=== PATIENT | female | born 1990 | race Caucasian/White ===

== ENCOUNTER 2020-05-23 10:41 | Outpatient (REF) | payer OTHER, MEDICAID, SELFPAY ==
[2020-05-23 11:00] LABS: COVID-19 Test Negative (Negative)
== END 2020-05-23 10:42 | disposition home or self-care (01) ==
LOC: HO.LAB 10:41
PROVIDERS: Visit Provider Internal Medicine
DX: Z20.828 Contact with and (suspected) exposure to other viral communicable diseases (principal)
CPT/HCPCS: 87635

== ENCOUNTER 2021-06-14 12:29 | Outpatient (REF) | payer OTHER, MEDICAID, SELFPAY ==
[2021-06-14 13:55] LABS: Estimated Average Glucose 94 mg/dL; Hemoglobin A1c % 4.9 %
[2021-06-14 14:14] LABS: Vitamin D 25-OH Total 26.8 ng/mL (>30)
[2021-06-14 14:32] LABS: Syphilis Screen Reactive (Nonreactive)
[2021-06-14 16:59] LABS: CT PCR NOT DETECTED (Not Detect.); NG PCR NOT DETECTED (Not Detect.)
[2021-06-17 08:23] LABS: HBsAGNum1 0.21 S/CO (0.00-0.99); HIV AB/AG Nonreactive (Nonreactive); HIV Num 1 0.04 S/CO (0.00-0.99); Hepatitis B Surface Antigen Negative (Negative)
[2021-06-17 08:30] LABS: ~HepC Num1 0.09 S/CO (0.00-0.79); ~Hepatitis C Antibody Nonreactive (Nonreactive)
[2021-06-21 14:57] LABS: RPR Quantitative Non-Reactive (Nonreactive); T.Pallidum Particle Agg Test Non-Reactive (Nonreactive)
== END 2021-06-14 12:30 | disposition home or self-care (01) ==
LOC: HO.LAB 12:29
PROVIDERS: PCP Family Medicine; Visit Provider Family Medicine
DX: Z01.84 Encounter for antibody response examination (principal); Z11.3 Encounter for screening for infections with a predominantly sexual mode of transmission; Z11.4 Encounter for screening for human immunodeficiency virus [HIV]; E55.9 Vitamin D deficiency, unspecified; Z86.19 Personal history of other infectious and parasitic diseases
CPT/HCPCS: 36415; 82306; 83036; 86592; 86780; 86803; 87340; 87389; 87491; 87591

== ENCOUNTER 2022-04-02 13:31 | Outpatient (REF) | payer OTHER, MEDICAID, SELFPAY ==
--- NOTE | ~2022-04-02 | XR_ITS ---
EXAMINATION: LEFT FOOT AND ANKLE CLINICAL INFORMATION: Pain COMPARISON: None TECHNIQUE: 3 views of the left foot and 3 views of the left ankle. FINDINGS: There is no evidence of acute fracture or dislocation of the left foot. No significant soft tissue swelling is seen. Joint spaces are maintained. No destructive bony lesions. There is no evidence of acute fracture or dislocation of the left ankle. Joint spaces maintained. Ankle mortise intact. No effusion identified. XR/XR foot LT min 3V IMPRESSION: No significant bony abnormality of the left foot or ankle.
--- NOTE | ~2022-04-02 | XR_ITS ---
EXAMINATION: LEFT FOOT AND ANKLE CLINICAL INFORMATION: Pain COMPARISON: None TECHNIQUE: 3 views of the left foot and 3 views of the left ankle. FINDINGS: There is no evidence of acute fracture or dislocation of the left foot. No significant soft tissue swelling is seen. Joint spaces are maintained. No destructive bony lesions. There is no evidence of acute fracture or dislocation of the left ankle. Joint spaces maintained. Ankle mortise intact. No effusion identified. XR/XR ankle LT min 3V IMPRESSION: No significant bony abnormality of the left foot or ankle.
== END 2022-04-02 13:32 | disposition home or self-care (01) ==
LOC: HO.XRAY 13:31
PROVIDERS: Absent Provider Family Medicine; PCP Family Medicine; Visit Provider Internal Medicine
DX: M25.572 Pain in left ankle and joints of left foot (principal); M79.672 Pain in left foot
CPT/HCPCS: 73610; 73630

== ENCOUNTER 2022-04-28 16:35 | Outpatient (REF) | payer OTHER, MEDICAID, SELFPAY ==
--- NOTE | ~2022-04-28 | XR_ITS ---
EXAMINATION: XR CHEST CLINICAL INFORMATION: Obesity COMPARISON: None TECHNIQUE: 2 views of the chest were obtained. FINDINGS: No significant abnormality is noted involving the heart, lungs, mediastinum, bony thorax or soft tissues. XR/XR chest 2V IMPRESSION: Unremarkable examination.
== END 2022-04-28 16:36 | disposition home or self-care (01) ==
LOC: HO.XRAY 16:35
PROVIDERS: PCP Family Medicine; Visit Provider Surgery
DX: E66.01 Morbid (severe) obesity due to excess calories (principal); K21.9 Gastro-esophageal reflux disease without esophagitis
CPT/HCPCS: 71046

== ENCOUNTER → 2022-05-05 12:06 | Outpatient (REF) | payer OTHER, MEDICAID, SELFPAY ==
--- NOTE | 2022-05-05 12:11 | ECG_ITS ---
Test Reason : e66.01 Blood Pressure : / mmHG Vent. Rate : 058 BPM Atrial Rate : 058 BPM P-R Int : 128 ms QRS Dur : 086 ms QT Int : 402 ms P-R-T Axes : -04 016 -04 degrees QTc Int : 394 ms Sinus bradycardia with sinus arrhythmia Nonspecific T wave abnormality Abnormal ECG No previous ECGs available Referred By: Eric Smith Electronically Signed By:IRMA JONHSON
[2022-05-08 13:02] LABS: H Pylori Breath Test Negative (Negative)
== END ==
LOC: HO.CARD 12:06
PROVIDERS: PCP Family Medicine; Visit Provider Surgery
DX: E66.01 Morbid (severe) obesity due to excess calories (principal); K21.9 Gastro-esophageal reflux disease without esophagitis
CPT/HCPCS: 36415; 83013; 93005

== ENCOUNTER 2022-05-06 10:48 | Outpatient (REF) | payer OTHER, MEDICAID, SELFPAY ==
[2022-05-06 14:00] LABS: MANUAL DIFF FLAG NO
[2022-05-06 14:09] LABS: Basophils Percent Auto 0.5 % (0-2); Eosinophils Absolute Auto 0.1 X10*3/uL (0.0-0.4); Hematocrit 38.4 % (37.0-47.0); Hemoglobin 12.5 g/dl (12.0-16.0); Imm Gran Abs Auto 0.01 X10*3/uL (0.00-0.03); Imm Gran Pct Auto 0.2 % (0.0-0.4); Lymphocytes Percent Auto 31.5 % (20-40); Mean Corpuscular HGB Conc 32.6 g/dl (31.0-35.0); Mean Corpuscular Hemoglobin 29.1 pg (27.0-33.0); Mean Corpuscular Volume 89.3 fL (80.0-98.0); Mean Platelet Volume 10.7 fL (9.4-12.3); Monocytes Absolute Auto 0.4 X10*3/uL (0.1-1.2); Monocytes Percent Auto 5.5 % (2-11); Neutrophils Absolute Auto 3.9 x10*3/uL (2.0-8.3); Neutrophils Percent Auto 60.3 % (45-73); Platelet Count 307 X10*3/uL (160-400); Red Cell Distribution Width 13.3 % (11.0-16.0); White Blood Count 6.4 X10*3/uL (4.8-10.8)
[2022-05-06 14:19] LABS: Estimated Average Glucose 97 mg/dL
[2022-05-06 14:30] LABS: Alanine Aminotransferase 28 U/L (0-31); Albumin Level 4.5 g/dL (3.5-5.0); Alkaline Phosphatase 51 U/L (39-117); Anion Gap 16 (12-20); Aspartate Amino Transferase 31 U/L (5-31); Bilirubin Total 0.5 mg/dL (0.0-1.0); Blood Urea Nitrogen 10 mg/dL (9-16); C Reactive Protein 0.26 mg/dL (< or = 0.50); Calcium 9.5 mg/dL (8.4-10.2); Carbon Dioxide 26 mmol/L (22-29); Chloride 102 mmol/L (96-108); Cholesterol 169 mg/dL; Estimated Glomerular Filt Rate > 60; Glucose Random 79 mg/dL (60-115); HDL Cholesterol 51 mg/dL; Iron 76 mcg/dL (30-160); LDL Cholesterol Calculated 99 mg/dl; Percent Iron Saturation 17 % (15-50); Potassium 4.2 mmol/L (3.3-5.1); Sodium 140 mmol/L (135-145); Total Iron Binding Capacity 446 mcg/dL (228-428); Total Protein 7.5 g/dL (6.5-8.0); Triglycerides 99 mg/dL; Unsaturated Iron Binding 370 ug/dL
[2022-05-06 14:42] LABS: Ferritin 16 ng/mL (10-122); Insulin 11 uU/mL (2-29); TSH reflex Free T4 0.74 uIU/mL (0.32-4.0); Vitamin D 25-OH Total 31.1 ng/mL (>30)
[2022-05-06 14:55] LABS: Folate 19.6 ng/mL (> or = 4.0); Vitamin B12 790 pg/mL (200-900)
[2022-05-07 12:37] LABS: Calcium (PTHI) 9.8 mg/dL (8.6-10.2); PTHI 60 pg/mL (16-77)
[2022-05-09 19:52] LABS: Zinc 75 mcg/dL (60-130)
[2022-05-10 08:08] LABS: Vitamin B1 7 nmol/L (8-30)
[2022-05-10 20:21] LABS: Vitamin A 43 mcg/dL (38-98)
== END 2022-05-06 10:49 | disposition home or self-care (01) ==
LOC: HO.HMGCLDS 10:48
PROVIDERS: PCP Family Medicine; Visit Provider Surgery
DX: E66.01 Morbid (severe) obesity due to excess calories (principal); K21.9 Gastro-esophageal reflux disease without esophagitis
CPT/HCPCS: 36415; 80053; 80061; 82306; 82607; 82728; 82746; 83036; 83525; 83540; 83970; 84425; 84443; 84590; 84630; 85025; 86140

== ENCOUNTER 2022-07-01 09:19 | Outpatient (REF) | payer OTHER, MEDICAID, SELFPAY ==
--- NOTE | ~2022-07-01 | US_ITS ---
EXAMINATION: US COMPLETE ABDOMEN WITH LIVER ELASTOGRAPHY CLINICAL INFORMATION: Obesity. COMPARISON: None. TECHNIQUE: Real-time imaging of the abdominal viscera. Noninvasive ultrasound liver fibrosis assessment is performed using Elena ElastPQ point quantification shear wave elastography (2D-SWE) with a C5-2 MHz transducer. Multiple elastography samples are obtained. FINDINGS: PANCREAS: Normal. The visualized pancreatic head and body are normal in appearance. The remainder of the pancreas is obscured from visualization by the overlying bowel gas. ABDOMINAL AORTA: The proximal, middle, and distal aortic segments are normal in caliber. INFERIOR VENA CAVA: Visualized portions are normal. LIVER: The liver demonstrates normal size, contour and increased echogenicity. No focal lesion or intrahepatic biliary duct dilatation. The right lobe measures 7.2 cm in length. The left lobe measures 9.0 cm in length. Portal flow is hepatopedal. Shear wave liver elastography median stiffness is 1.60 m/s (reference: normal median stiffness is 1.3 m/s or less). IQR/median stiffness to assess sampling precision is 0.25 (reference: good quality data set is IQR/median stiffness of 0.15 or less). GALLBLADDER: There are multiple echogenic gallstones without wall thickness. Wall thickness is 0.2 cm. No pericholecystic fluid collection or tenderness in the right upper quadrant. COMMON BILE DUCT: Normal in caliber measuring 0.3 cm in diameter. RIGHT KIDNEY: There is an extrarenal right kidney pelvis versus mild proximal hydroureter. No renal calculi or focal parenchymal lesions. The kidney measures 11.3 cm in maximum dimension. LEFT KIDNEY: Normal. No hydronephrosis. No renal calculi or focal parenchymal lesions. The kidney measures 10.0 cm in maximum dimension. SPLEEN: Normal. The spleen measures 11.3 cm in maximum dimension. FREE FLUID: None. US/US abdomen comp w elastography IMPRESSION: 1. Cholelithiasis. Mild hepatic steatosis. 2. Liver elastography: Median liver stiffness 1.60 m/s corresponds to cACLD (ruled out). REFERENCE: Society of Radiologists in Ultrasound Liver Stiffness Thresholds (2019): LIVER STIFFNESS THRESHOLDS: *Liver Stiffness equal or less than 1.3 m/s: High probability of being normal. *Liver Stiffness less than 1.7 m/s: In the absence of other known clinical signs, rules out compensated advanced chronic liver disease. *Liver Stiffness 1.7-2.1 m/s: Suggestive of compensated advanced chronic liver disease but need further test for confirmation. *Liver Stiffness over 2.1 m/s: Rules in compensated advanced chronic liver disease. *Liver Stiffness over 2.4 m/s: Suggestive of clinically significant portal hypertension. QUALITY OF DATA SET: *IQR/Median value equal or less than 0.15 implies a quality data set. *IQR/Median value over 0.15 implies a poor quality data set. SIGNIFICANT CHANGE FROM PRIOR EXAM: Significant change if liver stiffness measurement is 10% or greater from prior exam. OTHER CONSIDERATIONS: The stage of liver fibrosis may be overestimated in the setting of acute hepatitis, liver inflammation, elevated liver function tests, hepatic vascular congestion, obstructive cholestasis, non-fasting state, and infiltrative diseases such as amyloidosis and lymphoma. In some patients with NAFLD, the liver stiffness thresholds for compensated advanced chronic liver disease may be lower. In causes other than viral hepatitis and NAFLD, liver stiffness thresholds are not well established.
--- NOTE | ~2022-07-01 | FL_ITS ---
EXAMINATION: XR FLUOROSCOPY UPPER GI WITH AIR CLINICAL INFORMATION: Morbid/severe obesity due to excess calories. COMPARISON: None TECHNIQUE: Routine upper GI air-contrast study was performed in upright and lying position. FINDINGS: Following oral administration of thick barium and effervescent granules in upright view there is normal propagation bolus from the oral cavity through the pharynx, esophagus into stomach without any evidence of obstruction, narrowing or stricture. No extrinsic impression seen. On placing patient supine and prone lying the course, caliber and peristalsis of stomach and duodenum is normal. The mucosal pattern of esophagus, stomach and the duodenum is normal. There is mild delay in emptying of the stomach during the exam. No gastroesophageal reflux or hernia seen. FLUOROSCOPY TIME: 1.5 minutes DOSE AREA PRODUCT: 30.088 uGy-m2 (microgray-meter squared) FL/FL upper GI w air IMPRESSION: Unremarkable upper GI examination.
== END 2022-07-01 09:20 | disposition home or self-care (01) ==
LOC: HO.US 09:19
PROVIDERS: Visit Provider Surgery
DX: E66.01 Morbid (severe) obesity due to excess calories (principal); K21.9 Gastro-esophageal reflux disease without esophagitis
CPT/HCPCS: 74246; 76705; 76981

== ENCOUNTER → 2022-07-17 14:59 | Outpatient (BNVA) | payer OTHER, MEDICAID, SELFPAY | PROVIDERS: PCP Family Medicine; Referring Provider Surgery; Visit Provider Dietitian, Registered | DX: E66.01 Morbid (severe) obesity due to excess calories (principal) | CPT/HCPCS: 97802 ==

== ENCOUNTER 2022-07-22 | Outpatient (REF) | payer OTHER, MEDICAID, SELFPAY | END 2022-07-22 00:01 | disposition home or self-care (01) | LOC: CF | PROVIDERS: PCP Family Medicine; Visit Provider Counselor Mental Health | DX: Z01.818 Encounter for other preprocedural examination (principal); E66.01 Morbid (severe) obesity due to excess calories; F50.81 Binge eating disorder | CPT/HCPCS: 90791 ==

== ENCOUNTER → 2022-07-29 10:28 | Outpatient (REF) | payer OTHER, MEDICAID, SELFPAY ==
--- NOTE | 2022-07-29 10:30 | CA_ITS ---
Acquisition Time: 2022-07-29 10:49:18 Total Exercise Time: 00:07:19 Test Indications: ABN EKG Medications: SEE CHART Protocol: STONE Max HR: 164 BPM 87% of Pred: 188 BPM Max BP: 168/080 mmHG Max Work Load: 9.0 METS Exercise stress test with exercise 7 min 19 sec of Stone protocol, achieving 87% MPHR, 9 METs, without anginal symptoms, without arrythmia, with normotensive response to exercise, without EKG changes meeting criteria for ischemia. Test reviewed with Dr Hess. Referred By: Eric Smith Overread By: NAHUM NUÑEZ
== END ==
LOC: HO.CARD 10:28
PROVIDERS: PCP Family Medicine; Visit Provider Surgery
DX: Z01.818 Encounter for other preprocedural examination (principal); R06.02 Shortness of breath; R94.31 Abnormal electrocardiogram [ECG] [EKG]
CPT/HCPCS: 93017

== ENCOUNTER → 2022-08-06 08:50 | Outpatient (BNVA) | payer OTHER, MEDICAID, SELFPAY | PROVIDERS: PCP Family Medicine; Visit Provider Surgery | DX: Z13.89 Encounter for screening for other disorder (principal) ==

== ENCOUNTER → 2022-08-21 14:47 | Outpatient (BNVA) | payer OTHER, MEDICAID, SELFPAY | PROVIDERS: PCP Family Medicine; Visit Provider Surgery | DX: Z13.89 Encounter for screening for other disorder (principal) ==

== ENCOUNTER 2022-08-26 10:10 | Outpatient (REF) | payer OTHER, MEDICAID, SELFPAY ==
[2022-08-26 11:48] LABS: MANUAL DIFF FLAG NO
[2022-08-26 12:01] LABS: Basophils Percent Auto 0.5 % (0-2); Eosinophils Absolute Auto 0.1 X10*3/uL (0.0-0.4); Eosinophils Percent Auto 1.2 % (0-4); Hematocrit 41.2 % (37.0-47.0); Hemoglobin 13.5 g/dl (12.0-16.0); Imm Gran Abs Auto 0.02 X10*3/uL (0.00-0.03); Imm Gran Pct Auto 0.3 % (0.0-0.4); Lymphocytes Absolute Auto 1.9 X10*3/uL (1.2-4.9); Lymphocytes Percent Auto 24.9 % (20-40); Mean Corpuscular HGB Conc 32.8 g/dl (31.0-35.0); Mean Corpuscular Hemoglobin 29.5 pg (27.0-33.0); Mean Platelet Volume 10.6 fL (9.4-12.3); Monocytes Absolute Auto 0.5 X10*3/uL (0.1-1.2); Monocytes Percent Auto 6.2 % (2-11); Neutrophils Absolute Auto 5.1 x10*3/uL (2.0-8.3); Neutrophils Percent Auto 66.9 % (45-73); Platelet Count 267 X10*3/uL (160-400); Red Blood Count 4.58 X10*6/uL (4.20-5.50); Red Cell Distribution Width 13.2 % (11.0-16.0); White Blood Count 7.6 X10*3/uL (4.8-10.8)
[2022-08-26 12:04] LABS: Prothrombin Time 11.8 SEC (10.0-13.1)
[2022-08-26 12:06] LABS: Partial Thromboplastin Time 29.7 SEC (26.0-36.4)
[2022-08-26 12:17] LABS: Estimated Average Glucose 91 mg/dL; Hemoglobin A1c % 4.8 %
[2022-08-26 13:14] LABS: Alanine Aminotransferase 31 U/L (0-31); Albumin Level 4.3 g/dL (3.5-5.0); Alkaline Phosphatase 54 U/L (39-117); Anion Gap 13 (12-20); Aspartate Amino Transferase 29 U/L (5-31); Bilirubin Total 0.6 mg/dL (0.0-1.0); Blood Urea Nitrogen 15 mg/dL (9-16); C Reactive Protein 0.57 mg/dL (< or = 0.50); Calcium 9.6 mg/dL (8.4-10.2); Carbon Dioxide 28 mmol/L (22-29); Chloride 104 mmol/L (96-108); Cholesterol 182 mg/dL; Estimated Glomerular Filt Rate > 60; Glucose Random 77 mg/dL (60-115); HDL Cholesterol 50 mg/dL; LDL Cholesterol Calculated 117 mg/dl; Potassium 4.1 mmol/L (3.3-5.1); Sodium 139 mmol/L (135-145); TSH reflex Free T4 0.71 uIU/mL (0.32-4.0); Total Protein 7.5 g/dL (6.5-8.0); Triglycerides 79 mg/dL
[2022-08-26 13:39] LABS: Insulin 6 uU/mL (2-29)
== END 2022-08-26 10:11 | disposition home or self-care (01) ==
LOC: HO.LAB 10:10
PROVIDERS: PCP Family Medicine; Visit Provider Surgery
DX: E66.01 Morbid (severe) obesity due to excess calories (principal)
CPT/HCPCS: 36415; 80053; 80061; 83036; 83525; 84443; 85025; 85610; 85730; 86140

== ENCOUNTER 2022-09-04 06:18 | Inpatient (IN) | payer OTHER, MEDICAID, SELFPAY ==
[2022-08-25 12:09] VITALS: BMI 38.4
--- NOTE | 2022-08-30 00:10 | MHC.SHP ---
Pre-Procedural Eval Section A Date of Service: 08/30/22 The patient is an INPATIENT: Yes The History & Physical has been completed within 30 days and I have reviewed it.: Yes Section B Chief Complaint: obesity Relevant Family History (Specify if Yes): No Relevant Social History: None Present Medications: None Medical History: No relevant PMH History of Previous Operations: No relevant previous surgery Allergies: Allergies Allergy/AdvReac Type Severity Reaction Status Date / Time No Known Allergies Allergy Verified 08/06/22 13:09 Review of Systems Sugical H&P ROS: Negative: Constitution, Cardiovascular, Respiratory, Neurological, Psychiatric, Hem-Onc, Allergic/Immunologic, Gastrointestinal, Genitourinary, Musculoskeletal, Integumentary, Endocrine and Eyes/Ears/Nose/Throat Exam Surgical H&P Exam: Normal: HEENT, Normal: Heart, Normal: Lungs, Normal: Extremities, Normal: Abdomen, Normal: Skin and Normal: Neurological Plan Diagnosis/Plan: Unchanged I have reviewed the history and physical and performed a pertinent physical examination on my patient. No changes have occurred unless specified. Time Spent With Patient Time: Total time managing care of this patient today ____ minutes.
[2022-09-03 12:38] LABS: COVID-19 Test Negative (Negative); IDNOW Serial# 16C4AD1C
[2022-09-04] VITALS (15 sets, daily range): BP systolic 115–139; BP diastolic 68–87; PULSE 57–90; RESP 16–22; TEMP 36.1–36.8; O2SAT 96–100
[2022-09-04] MEDS: Lactated Ringers 1,000 ML 999 ML IV (06:27)
--- NOTE | 2022-09-04 07:27 | P.CONAN_ITS ---
HPI - Anesthesia Eval Consult details Narrative: 32 yo female patient for EGD, Sleeve gastrectomy, possible diaphragmatic hernia relair, possible ventral hernia repair, possible open PMFSH Active Problems Active Problems: All Active Problems (Updated 07/22/22 @ 09:39 by Luz Mata) Binge-eating disorder, mild (Acute) Abnormal EKG (Acute) Vitamin B1 deficiency (Acute) Back pain (Acute) Asthma (Acute) GERD (gastroesophageal reflux disease) (Acute) Morbid obesity (Acute) Denies BHUMIKA Past Medical History Medical History Asthma GERD (gastroesophageal reflux disease) Morbid obesity Family History Family history of problems with anesthesia: No Surgical History Surgical History (Updated 09/04/22 @ 08:42 by Kalyn Castro MD) History of epidural anesthesia History of tubal ligation History of Problems with Anesthesia: No Social History Social History Are you a primary child care education coordinator to a significant other at home: No Do you presently have visiting nurse or other home services: No Patient Tobacco Use Status: Never used Tobacco Second Hand Smoke Exposure: No Use of substances other than those prescribed or required for medical reasons: No Have you been hit, kicked, punched, or otherwise hurt by someone within the past year? If so, by whom?: No Are you DNR?: No Advance Directives: No Advance Directives Information Provided: Yes (Mailed w/ pre-op instructions) Recently lost weight without trying: No How much weight loss: 24-33 pounds Eating poorly because of decreased appetite: No Nutrition screen score: 3 Nutrition Risks: No Nutritional Risk Patient : No FDLMP: 08/25/22 Meds Allergies Allergy/AdvReac Type Severity Reaction Status Date / Time No Known Allergies Allergy Verified 09/04/22 06:23 Active Medications: Current Medications Lactated Ringer's (Lr) 1,000 mls @ 999 mls/hr IV .Q1H1M CLAUDIO Stop: 09/04/22 08:30 Last Admin: 09/04/22 06:27 Dose: 999 mls/hr Home Medications Medication Instructions Recorded Confirmed Last Taken Type albuterol sulfate 90 mcg/actuation 2 puff inhalation Q4-6H PRN 03/06/22 09/04/22 Unknown History aerosol inhaler Shortness Of Breath Or Wheezing fluticasone propionate 50 1 inh inhalation Q12H 03/06/22 09/04/22 Unknown History mcg/actuation blister powder for inhalation (Flovent Diskus) Exam Exam Date and Time: September 04, 2022 0727 Height,Weight and Vital Signs: Height 5 ft 3 in Weight 98.43 kg Last Vital Signs Temp 97.4 F 09/04/22 06:21 Pulse 90 09/04/22 06:21 Resp 18 09/04/22 06:21 BP 136/87 09/04/22 06:21 Pulse Ox 97 09/04/22 06:21 O2 Del Method 09/04/22 06:21 Pertinent Lab Results Pertinent Lab Results: Laboratory Tests 08/26/22 09/03/22 11:45 12:12 COVID-19 (AKIL) Negative COVID-19 Clin Com See Note Blood Type O Positive Antibody Screen NEGATIVE Airway Mallampati Class: II TM Dist: >3cm Neck ROM: Full Loose/Missing/Broken Teeth: No Heart: RRR Lungs: CTAB Assessment and Plan Assessment Anesthesia Assessment: Anesthesia Plan Discussed and Chart Reviewed Final Anesthetic Review Family History of Problems with Anesthesia: No History of Problems with Anesthesia: No NPO: Yes ASA Class: III Final Preanesthetic Review: No Changes in Pt Med Stat, Meds/Allgs Chart Reviewed, Consent Obtained/Reviewed and Anes Risks/Benef Reviewed Patient Risk: Intermediate Procedure Risk: Intermediate Assessment/Block/Sedation in SS: Assess/Block/Sedation-SS Anesthetic Plan Anesthetic Plan: GA Disposition: Standard PACU and Inp. Admit - Standard Bed
--- NOTE | 2022-09-04 07:33 | PM.OP ---
Brief Operative Note Date of Service: 09/04/22 Pre-op diagnosis: Severe obesity with comorbidities (see below) Post-op diagnosis: same Procedure: INITIAL PATIENT BMI ON PRESENTATION AT OUR OFFICE: 45.1 kg/m2 LAST BMI BEFORE SURGERY: 39.1 kg/m2 COMORBIDITIES: back pain, asthma, liver steatosis, liver fibrosis ?The patient presented to the Weight Management Program with significant obesity that was negatively impacting the patient's comorbidities as listed above.? The program is a phased program with a special focus on preoperative medical weight management to promote substantial weight loss and prepare the patients for the second phase of the program: bariatric surgery. The patient participated in an intensive weekly lifestyle ?intervention and exercise program during which the patient ?has lost between the initial office visit and the last preoperative visit 37lbs, or 14.52% of initial actual body weight. It was deemed appropriate for the patient to now have bariatric surgery. In light of the current Covid-19 pandemic and the well documented strong association of obesity and increased risk of worse outcomes if infected with Covid-19 (REFERENCES:https://pubmed.ncbi.nlm.nih.gov/12707316/,?https://pubmed.ncbi.nlm.nih.gov/71819821/), any delay in undergoing bariatric surgery may lead to the patient's worsening health condition and increased?risk of more severe Covid-19 disease if infected. In addition a recent?study from [facility] published in [facility] [employer] on 07/29/2021 ([email or web address]) found that, among patients with obesity, substantial weight loss achieved with surgery was associated with improved outcomes of COVID-19 infection. The findings suggest that obesity can be a modifiable risk factor for the severity of COVID-19 infection. In addition, the patient met the BMI-criteria for bariatric surgery based on the BMI on initial presentation. The patient should not be penalized for achieving such weight loss because ?it is not sustainable long-term without surgical intervention and it was achieved in preparation for bariatric surgery ?under my direction and based on my published research ([email or web address]).[email or web address] and?https://www.soard.org/article/[email or web address](02)81453-X/pdf) ?that a 10% preoperative weight loss improves long-term weight loss after surgery and reduces perioperative complications.? Insurance carriers such as [facility] have endorsed my recommendations ?and have included in their policies criteria to include a 10% preoperative weight loss requirement. PROCEDURE: Esophago-gastroscopy, laparoscopic sleeve gastrectomy and laparoscopic gastropexy INDICATIONS: This is a 32 year-old female who was electively scheduled for laparoscopic, possibly open sleeve gastrectomy. The risks and complications of the procedure were discussed with the patient in advance, particularly the possibility of ; pulmonary embolism; staple line leak; bleeding; GERD; cardiac, pulmonary, or renal complications; as well as long-term problems such as insufficient weight loss, vitamin deficiency, strictures, or ulcers. The patient understood all the risks, and was in agreement to proceed with surgery. DESCRIPTION OF PROCEDURE: After informed consent was obtained from the patient, the patient was given preoperative antibiotics, and was transferred to the operating room. After successful induction of general anesthesia, pneumatic compression devices were placed on both lower extremities. An upper endoscopy was performed next. The oropharynx and esophagus appeared to be within normal limits. There was no diaphragmatic hernia present consistent with the findings of the preoperative upper GI. The stomach was entered. Then after all fluid and air were suctioned and the stomach was fully decompressed, the scope was withdrawn and secured in the mid esophagus. The patient was then prepped and draped in the usual sterile manner, and abdominal access was established at the right upper quadrant with the Karolyn technique. A 12 mm blunt port was inserted, and the abdomen was insufflated with CO2 to a pressure of 15 mmHg. Under direct visualization, additional ports were placed, specifically two 5 mm Versi-step ports to the left upper quadrant, and a 5 mm Versi-Step port to the right upper quadrant. 1% lidocaine plain was used to infiltrate all port sites as well as all fascia defects. Using the EndoClose suture passer device, I placed a #1 Polysorb tie across the falciform ligament in order to retract it up against the abdominal wall and prevent injury of the ligament with our instruments during the procedure. Following that, the patient was placed in a steep reverse Trendelenburg position. An additional 5 mm port was placed to the right flank for the Mediflex retractor that was used to retract the left lobe of the liver. The gastro-esophageal fat pad was opened with the ultrasonic device (Thunderbeat, Olympus) and the anterior esophagus and hiatus were exposed. The angle of His was opened with the ultrasonic device the fundus of the stomach from any diaphragmatic and splenic attachments. I then opened the gastrocolic ligament between the transverse colon and the greater curvature of the stomach with the ultrasonic device to enter the lesser sac and facilitate the ligation of the short gastric vessels. I started at a mid-point along the greater curvature and using the Thunderbeat, all short gastric vessels were divided all the way to the angle of His until the left maegan was completely dissected at its entirety. I then divided the gastro-colic ligament distally to a distance of about 3-4 cm proximal to the pylorus. The stomach was then divided transversely with one Endo SHIV-45 purple, one SHIV-45 orange load and three SHIV-60 articulating orange loads using the AEON stapler and loads. Every effort was made that the gastric sleeve had a tubular shape and an even caliber throughout. Once the sleeve resection was completed, the staple line of the gastric sleeve was reinforced with Hemoclips. The resected stomach was retrieved without difficulty from the Karolyn port. A gastropexy was then performed in order to prevent postoperative GERD and partial gastric volvulus. Several interrupted 2.0 Surgidac sutures were placed between the sleeve's staple line and the previously divided greater omentum and gastro-colic ligament using the Endo-Stitch device. ?An upper endoscopy was performed. There was no narrowing at the GE junction. The scope was easily advanced all the way to the pylorus which was clearly visualized. There was no narrowing anywhere and the sleeve's caliber was even throughout. The sleeve's staple line was inspected and there was no evidence of ischemia, bleeding or dehiscence. At that point the gastroscope was withdrawn from the patient?s mouth while we were decompressing the bowel and the stomach from any remaining air. I looked into the lesser sac to see how the sleeve was situating and it was situating well. There was no bleeding from the staple line, spleen, or short gastric vessels. The Mediflex retractor was removed, and the undersurface of the liver was inspected and there was no bleeding. The patient was placed in supine position. I closed the fascial defect of the 12 mm port site with a figure of eight #1 Polysorb suture. Then 30cc Ropivacaine plain with 10 mg of Dexamethasone were used to infiltrate the fascial closure as well as all skin incisions. A total of 6ml of Zynrelef was applied in the Karolyn wound. At this point, the abdomen was deflated, all ports were removed under direct vision, and no bleeding was noted from any of the port sites. The skin incisions were irrigated with saline and were closed with 4-0 absorbable monofilament sutures. Steri-Strips and OpSites were used to cover all incisions. The patient was extubated and was transferred in stable condition to the recovery room for further care. I was present and performed all saldana parts of the procedure. Mr. Lee was the assistant manager retail. There were no residents to assist with this case. Anshul Smith MD, PhD, FACS Surgeon: Eric Smith MD Anesthesia: GETA, local and other (TAP block and 6ml of Zynrelef) Was an Cleaning Specialist used for this Procedure?: No Cleaning Specialist: Manjinder Lee Estimated blood loss (mL): 10 IV fluids (mL): 2,500 Urine output (mL): 0 Pathology: other (Stomach) Condition: stable Disposition: PACU
--- NOTE | 2022-09-04 07:36 | PC.NURSE ---
ASSISTANT HOUSEKEEPING MANAGER pulled Tylenol 1000 mg IV
--- NOTE | 2022-09-04 07:38 | P.PNGS_ITS ---
Subjective Subjective Date of Service: 09/05/22 Interval history: Patient has mild incisional pain, but was able to ambulate and use the incentive spirometer. She is tolerating phase 1 bariatric diet Physical Exam Vital Signs: Vital Signs: Last Vital Signs Temp 97.4 F 09/04/22 06:21 Pulse 90 09/04/22 06:21 Resp 18 09/04/22 06:21 BP 136/87 09/04/22 06:21 Pulse Ox 97 09/04/22 06:21 O2 Del Method 09/04/22 06:21 BMI result Body Mass Index 38.4 GI: Inspection: Yes normal to inspection, Yes incision (clean, dry and intact) and Yes obesity Palpation (GI): Soft to palpation Extrem: Right lower extremity: normal to inspection (no calf tenderness) Left lower extremity: normal to inspection (no calf tenderness) Objective Data Active Medications Lactated Ringer's (Lr) 1,000 mls @ 999 mls/hr IV .Q1H1M CLAUDIO Stop: 09/04/22 08:30 Last Admin: 09/04/22 06:27 Dose: 999 mls/hr Documented By: ABDIEL Lactated Ringer's (Lr) 1,000 mls @ 100 mls/hr IVCONT .Q10H [facility] Labs 09/05/22 05:51 09/05/22 05:51 Labs: Laboratory Results - last 24 hr 09/03/22 12:12 COVID-19 (AKIL) Negative COVID-19 Clin Com See Note Procedures Date of Service Date of Service: 09/05/22 Progress Note: A&P Assessment and plan (1) Obesity: Status: Acute Assessment and Plan: s/p laparoscopic sleeve gastrectomy and gastropexy Doing well Check am labs. If OK, will discharge home (2) BMI 39.0-39.9,adult: Status: Acute (3) GERD (gastroesophageal reflux disease): Status: Acute (4) Back pain: Status: Acute (5) Asthma: Status: Acute (6) Steatosis, liver: Status: Acute (7) Liver fibrosis: Status: Acute (8) S/P laparoscopic sleeve gastrectomy: Status: Acute Time Spent With Patient Time: Total time managing care of this patient today ____ minutes. Quality Stroke Does the patient have a stroke diagnosis?: No VTE Prior VTE?: No VTE Risk Level:: Surgical - moderate VTE Device Contraindication: N/A - Device Ordered VTE Drug Contraindication: Treatment Not Indicated
--- NOTE | 2022-09-04 07:57 | PHA.MEDREC ---
Pharmacy Consult ? Medication Reconciliation Pharmacy has completed the medication reconciliation. Reviewed med rec done by nursing
--- NOTE | 2022-09-04 10:16 | P.DS_ITS ---
DS: Providers Provider Date of Service: 09/05/22 Date of admission: 09/04/22 06:18 Primary care physician: Anh Solomon MD DS: Diagnosis Discharge Diagnosis (1) Obesity: Status: Acute (2) BMI 39.0-39.9,adult: Status: Acute (3) GERD (gastroesophageal reflux disease): Status: Acute (4) Back pain: Status: Acute (5) Asthma: Status: Acute (6) Steatosis, liver: Status: Acute (7) Liver fibrosis: Status: Acute DS: Summary Hospital Course Hospital Course: ADMITTING DIAGNOSIS: obesity, asthma, gerd ? DISCHARGE DIAGNOSIS: same, s/p laparoscopic sleeve gastrectomy ? PAST SURGICAL HISTORY: tubal ligation ? PROCEDURE: upper endoscopy, laparoscopic sleeve gastrectomy ? DISCHARGE SUMMARY: ? History of Present Illness: ? The patient is a?32 year-old woman with a BMI of?45.1 kg/m2 and associated co-morbidities as described above. The patient had extensive work-up,lost?37 lbs preoperatively and was electively scheduled for laparoscopic, possible open sleeve gastrectomy and gastropexy. Risks and complications of the surgery were discussed with the patient in advance, particularly the possibility of , pulmonary embolism, anastomotic leak, bleeding, bowel injury, GERD, cardiac, renal or pulmonary complications. The patient understood all the risks and was in agreement with the surgical plan. ? Hospital Course: ? The patient underwent an uneventful laparoscopic sleeve gastrectomy with g astropexy on the day of admission. Postoperatively, the patient was transferred to the surgical floor. The patient received IV Acetaminophen and IV dilaudid for pain control. Patient was started on bariatric phase 1 diet POD #0. On postoperative day one, the patient was feeling well without nausea, vomiting, fevers, or tachycardia. The patient had some mild incisional pain and the abdomen was soft. ? On the morning of postoperative day one, the patient was continued on 1 ounce of water or ice every half hour. During the day, the patient did fairly well, having some incisional pain, but able to ambulate adequately and to tolerate liquids well. ? Since the patient is doing well, we decided that the patient was ready to be discharged. The patient was given instructions to follow-up with me next week and to call my office for any fever over 101, persistent abdominal pain, nausea, vomiting, GERD, symptoms of DVT such as calf tenderness, or leg swelling, or pulmonary embolism such as chest pain or shortness of breath. The patient was also instructed to drink 40-60 ounces of liquids per day using the 1-ounce cups. The patient had been given prescriptions for Tylenol for pain, Zofran prn for nausea, and pantoprazole and carafate previously. The patient was encouraged to ambulate and use the incentive spirometer. The patient was allowed to shower, but no baths, and encouraged to stay active at home. All of these instructions were given to the patient personally. All questions were answered and the patient understood all instructions, the instructions were also given to the patient in print. Time Spent with Patient Time attestation: Total time managing care of this patient today ____ minutes. Discharge coordination time: Less than 30 minutes Quality: Safe Use of Opioids Does Pt have an Active Cancer Diagnosis on the Problem List?: No Quality: Stroke Does the patient have a stroke diagnosis?: No Physical Exam Vital Signs: Vital Signs: Last Vital Signs Temp 97.4 F 09/04/22 06:21 Pulse 90 09/04/22 06:21 Resp 18 09/04/22 06:21 BP 136/87 09/04/22 06:21 Pulse Ox 97 09/04/22 06:21 O2 Del Method 09/04/22 06:21 BMI result Body Mass Index 38.4 DS: Data Data Completed and Pending Pending studies at discharge: Pending at discharge 09/04/22 09:17 Surgical [PTH] Routine Labs on day of discharge: Laboratory Results - last 24 hr 09/03/22 12:12 COVID-19 (AKIL) Negative COVID-19 Clin Com See Note Discharge Plan Discharge Anticipated Discharge Date/Time: 09/05/22 10:00 Patient Disposition: Home, Self-Care Discharge Diagnosis: s/p laparoscopic sleeve gastrectomy Referrals: Anh Solomon MD [Primary Care Provider] - 1 Week Discharge Medications: Continued albuterol sulfate 90 mcg/actuation HFA aerosol inhaler 2 puff inhalation Q4-6H PRN (Reason: Shortness Of Breath Or Wheezing) Flovent Diskus 50 mcg/actuation blister with device 1 inh inhalation Q12H pantoprazole 40 mg tablet,delayed release (DR/EC) 40 mg PO DAILY Qty: 30 2RF Rx Instructions: Start taking on 08/17/22, one per day sucralfate 100 mg/mL suspension 10 ml PO BID Qty: 400 2RF ondansetron HCl 4 mg tablet 4 mg PO Q12H Qty: 20 0RF Rx Instructions: use only if you have nausea, if needed Discontinued thiamine HCl (vitamin B1) 100 mg tablet 100 mg PO DAILY Qty: 30 2RF phentermine 15 mg capsule 15 mg PO DAILY Qty: 30 0RF Rx Instructions: Take at 1pm daily Discharge Orders: Discharge Order (Routine); Ordered 09/05/22 Ordered By: Eric Smith Activity on Discharge: No heavy lifting Stand Alone Forms: Patient Portal Discharge page Care Plan Goals: weight loss Health Concerns: obesity Plan of Treatment: No tub baths, sex or returning to work until discussed at first post op appointment. No exercise, alcohol, tobacco or illegal drug use. Continue to use incentive spirometer hourly while awake. Walk in home for 5- 10 minutes every 2 hours during the first week. Follow all instructions in the bariatric handbook and call with any questions.Discharge Instructions 1. Please call your doctor or come back to the emergency room should any new symptoms arise. 2. You will receive a courtesy call from [facility] 24-48 hours after discharge. 3. Activity: abstain from alcohol, practice limited stair climbing, no bending, no driving, no exercise, no illicit substances, no lifting, no sex, no tub bath, no work. 4. Diet: continue as discussed with Dr. Smith. 5. Dressing Change/Wound Care: Your incision is covered by clear bandages and guaze underneath. If the area is tender, you may apply an ice pack for short intervals (no more than 20 minutes on, followed by at least 20 minutes off). Do not apply heat. Do not use creams, lotions, or topical antibiotics unless instructed to do so by your surgeon. These can cause infection or allergic reaction. 6. Call your doctor if: - Your temperature exceeds 101.5 F - You experience excessive pain or swelling - You have an unexpected reaction to medication - You have excessive bleeding - You experience continued vomiting/nausea - Your incision begins to separate - Your incision shows signs of infection such as increased redness, swelling, excessive pain, heat, or drainage (light blood or clear fluid is normal) 7. General instructions: No lifting greater than 5 lbs for the next 4 weeks[address] driving within 24 hours of taking narcotic pain medications. If you do not move your bowels in the next 2 days, please take milk of magnesia over the counter. Please follow the post op diet and do not advance your diet until you are seen in the office in about 2 weeks. Please walk around your home every hour or two to prevent blood clots from forming in your legs. You do not need to wake from sleeping to walk. Please sleep in a bed or couch to prevent kinking at the hips and knees. Please take your incentive spirometer (your lung program rep) home with you and use it for the next few days to prevent pneumonias. You may shower, no hot tubs, baths or swimming pools. Please call the office with any questions or concerns such as increasing abdominal pain, fever, chills, shortness of breath, chest pain, leg pain or swelling, or redness or drainage from your incisions. Please stay on stage 3 diet which includes sugar free clear liquids such as ice pops and jello and broth and crystal light. Avoid all carbonation. Please drink 3 protein shakes with at least 25-30 grams of protein daily or 3 of the Celebrate 4:1 shakes which can be purchased in our office. The Celebrate shakes have all of the bariatric vitamins you need if you consume these shakes. If you are drinking other protein shakes, you will need to purchase the Celebrate multivitamins and calcium that we provide in the office (they will provide all the vitamins you need). Please make sure you are consuming at least 40-60 ounces of water in addition to your 3 protein shakes daily. Do not hesitate to contact the office with any questions at . The patient's medical history has been reviewed and they are considered low risk for post op DVT and therefore DVT prophylaxis is not considered necessary. Kamlesh mata after surgery was reviewed. The patient has not disclosed any travel plans during the first 30 days after surgery and they have been advised that within the first 30 days after surgery any bus, plane, train or car travel over 2 hours in duration is contraindicated due to the possibility of developing blood clots from immobility. Any travel, needs to include periods of ambulation of 10 minutes in duration every 2 hours.? The patient was instructed to discuss any plans for travel during this period with their bariatric surgeon. Assessment: stable s/p laparoscopic sleeve gastrectomy
[2022-09-04 10:40] LABS: Hematocrit 39.7 % (37.0-47.0)
[2022-09-04] MEDS: Famotidine/PF 20 MG/2 ML VIAL IVPUSH ×2 (10:44→19:41)
[2022-09-04 11:02] LABS: Anion Gap 17 (12-20); Blood Urea Nitrogen 8 mg/dL (9-16); Calcium 8.9 mg/dL (8.4-10.2); Carbon Dioxide 21 mmol/L (22-29); Chloride 104 mmol/L (96-108); Creatinine Clr Calc Pharmacy 120.4; Estimated Glomerular Filt Rate > 60; Glucose Random 76 mg/dL (60-115); Potassium 4.4 mmol/L (3.3-5.1); Sodium 138 mmol/L (135-145)
[2022-09-04] MEDS: ondansetron HCL 4 MG/2 ML VIAL IVPUSH ×2 (11:43→19:41)
[2022-09-04] MEDS: fentaNYL citrate/PF 100 MCG/2 ML VIAL 25 MCG IVPUSH (11:46)
[2022-09-04] MEDS: Lactated Ringers 1,000 ML 125 ML IVCONT ×2 (11:56→19:36)
[2022-09-04] MEDS: Metoclopramide HCl 10 MG/2 ML VIAL IVPUSH ×2 (12:01→18:10)
[2022-09-04] MEDS: ceFAZolin Sodium/Dextrose,Iso 2 GM/50 ML PIGGYBACK IV (13:28)
[2022-09-04] MEDS: Acetaminophen 1,000 MG/100 ML PIGGYBACK 16.7 MG IV ×2 (14:47→19:41)
[2022-09-04] MEDS: HYDROmorphone HCl 0.5 MG/0.5 ML SYRINGE 0.25 MG IVPUSH (19:41)
[2022-09-04] MEDS: 0.9 % Sodium Chloride Flush 3 ML SYRINGE IVFLUSH (19:42)
[2022-09-05] MEDS: Acetaminophen 1,000 MG/100 ML PIGGYBACK 16.7 MG IV (01:39)
[2022-09-05] MEDS: HYDROmorphone HCl 0.5 MG/0.5 ML SYRINGE 0.25 MG IVPUSH (01:45)
[2022-09-05] MEDS: ondansetron HCL 4 MG/2 ML VIAL IVPUSH (03:17)
[2022-09-05] MEDS: Lactated Ringers 1,000 ML 125 ML IVCONT (03:17)
[2022-09-05 03:18] VITALS: BP 134/79; PULSE 68; RESP 18; TEMP 36.4; O2SAT 96
[2022-09-05 06:21] LABS: MANUAL DIFF FLAG NO
[2022-09-05 06:33] LABS: Basophils Percent Auto 0.2 % (0-2); Eosinophils Percent Auto 0.1 % (0-4); Hematocrit 36.5 % (37.0-47.0); Hemoglobin 11.9 g/dl (12.0-16.0); Imm Gran Abs Auto 0.05 X10*3/uL (0.00-0.03); Imm Gran Pct Auto 0.4 % (0.0-0.4); Lymphocytes Absolute Auto 1.6 X10*3/uL (1.2-4.9); Lymphocytes Percent Auto 12.6 % (20-40); Mean Corpuscular HGB Conc 32.6 g/dl (31.0-35.0); Mean Corpuscular Hemoglobin 29.7 pg (27.0-33.0); Mean Platelet Volume 11.5 fL (9.4-12.3); Monocytes Absolute Auto 0.7 X10*3/uL (0.1-1.2); Monocytes Percent Auto 5.4 % (2-11); Neutrophils Absolute Auto 10.4 x10*3/uL (2.0-8.3); Neutrophils Percent Auto 81.3 % (45-73); Platelet Count 266 X10*3/uL (160-400); Red Blood Count 4.01 X10*6/uL (4.20-5.50); Red Cell Distribution Width 13.1 % (11.0-16.0); White Blood Count 12.8 X10*3/uL (4.8-10.8)
[2022-09-05 07:10] LABS: Anion Gap 16 (12-20); Blood Urea Nitrogen 5 mg/dL (9-16); Calcium 9.4 mg/dL (8.4-10.2); Carbon Dioxide 22 mmol/L (22-29); Chloride 103 mmol/L (96-108); Creatinine Clr Calc Pharmacy 128.9; Estimated Glomerular Filt Rate > 60; Glucose Random 70 mg/dL (60-115); Potassium 4.3 mmol/L (3.3-5.1); Sodium 137 mmol/L (135-145)
[2022-09-05] MEDS: Famotidine/PF 20 MG/2 ML VIAL IVPUSH (07:11)
[2022-09-05 08:00] VITALS: BP 134/78; PULSE 57; RESP 18; TEMP 36.7; O2SAT 100
[2022-09-05 09:01] VITALS: O2SAT 99
--- NOTE | 2022-09-05 10:09 | MHC.CM.PN ---
PT REPORTS SHE LIVES WITH A FRIEND AND IS INDEPENDENT WITH CARE SHE HAS A NEBULIZER SHE USES PRN AND NO OTHER DME NO HOME SERVICES SHE IS VAX X 2 WITH NO BOOSTERS PCP: DELLA TENORIO DC HOME TODAY WITH NO SERVICES PT WILL ARRANGE TRANSPORT
--- NOTE | 2022-09-05 12:22 | HO.POSTANES ---
Post Anesthesia Evaluation Post Anesthesia Evaluation Vital Signs: Vital Signs Temp Pulse Resp BP Pulse Ox O2 Del Method 09/05/22 09:01 99 Room Air 09/05/22 08:00 98.0 F 57 18 134/78 100 Room Air 09/05/22 03:18 97.6 F 68 18 134/79 96 Room Air Anesthesia: General Endotracheal-GETA Mental Status: Awake Pain Control: Satisfactory Nausea/Vomiting: None Hydration: Adequate Anesthesia-Related Issues: No Anes. Related Issues
== END 2022-09-05 10:06 | disposition home or self-care (01) | DRG 403 ==
LOC: HO.SSSA 10:19 → HO.S3 11:01
PROVIDERS: Physician Assistant Surgical; Admitting Provider Surgery; PCP Family Medicine; Visit Provider Surgery
PROC: 0DB64Z3 Excision of Stomach, Percutaneous Endoscopic Approach, Vertical (ICD-10-PCS; CPT 43845; principal; 2022-09-04 07:30)
DX: E66.01 Morbid (severe) obesity due to excess calories (principal); K76.0 Fatty (change of) liver, not elsewhere classified; J45.909 Unspecified asthma, uncomplicated; K21.9 Gastro-esophageal reflux disease without esophagitis; M54.9 Dorsalgia, unspecified; Z20.822 Contact with and (suspected) exposure to COVID-19; Z68.39 Body mass index [BMI] 39.0-39.9, adult; Z98.51 Tubal ligation status; Z79.51 Long term (current) use of inhaled steroids; Z79.899 Other long term (current) drug therapy
CPT/HCPCS: 36415; 80048; 85014; 85018; 85025; 86850; 86900; 86901; 87635; 88307; 88342; A4649; C9088; J0131; J0690; J1100; J1170; J2250; J2370; J2405; J2550; J2765; J2795; J3010

== ENCOUNTER → 2022-09-09 12:58 | Outpatient (BNVA) | payer OTHER, MEDICAID, SELFPAY | PROVIDERS: PCP Family Medicine; Visit Provider Physician Assistant Surgical | DX: Z13.89 Encounter for screening for other disorder (principal) ==

== ENCOUNTER → 2022-09-29 14:08 | Outpatient (BNVA) | payer OTHER, MEDICAID, SELFPAY | PROVIDERS: PCP Family Medicine; Visit Provider Physician Assistant Surgical | DX: Z13.89 Encounter for screening for other disorder (principal) ==

== ENCOUNTER → 2022-10-20 09:24 | Outpatient (BNVA) | payer OTHER, MEDICAID, SELFPAY | PROVIDERS: PCP Family Medicine; Visit Provider Physician Assistant Surgical | DX: Z13.89 Encounter for screening for other disorder (principal) ==

== ENCOUNTER → 2022-12-31 09:01 | Outpatient (BNVA) | payer OTHER, MEDICAID, SELFPAY | PROVIDERS: PCP Family Medicine; Referring Provider Family Medicine; Visit Provider Physician Assistant Surgical ==

== ENCOUNTER 2023-01-28 09:11 | Outpatient (REF) | payer OTHER, MEDICAID, SELFPAY ==
[2023-01-29 02:01] LABS: CT PCR NOT DETECTED (Not Detect.); NG PCR NOT DETECTED (Not Detect.)
[2023-01-29 12:50] LABS: BV Int Neg Control Negative (Negative); BV Int Pos Control Positive (Positive)
[2023-02-03 22:43] LABS: HPV mRNA E6/E7 rflx Not Detected (Not Detected)
== END 2023-01-28 09:12 | disposition home or self-care (01) ==
LOC: HO.LNP 09:11
PROVIDERS: PCP Family Medicine; Visit Provider Advanced Practice Midwife
DX: Z01.419 Encounter for gynecological examination (general) (routine) without abnormal findings (principal); E66.9 Obesity, unspecified; Z20.2 Contact with and (suspected) exposure to infections with a predominantly sexual mode of transmission; Z87.42 Personal history of other diseases of the female genital tract; Z79.899 Other long term (current) drug therapy; Z98.84 Bariatric surgery status
CPT/HCPCS: 0353U; 87480; 87510; 87624; 87660; 88142

== ENCOUNTER 2023-04-20 10:03 | Outpatient (AMB) | payer OTHER, MEDICAID, SELFPAY ==
--- NOTE | 2023-04-20 09:15 | MHC.OFFVISWM ---
Intake VS Expanded 04/20/23 09:19 Height 5 ft 3 in Weight 159 lb BMI 28.2 Intake Visit Reasons: VIDEO PO LSG 09/04/22 Utilization Supervisor Required: No Allergies No Known Allergies Allergy (Verified 01/28/23 09:19) Medication List - Last Reconciled 04/20/23 by CRICKET Macias albuterol sulfate 90 mcg/actuation 2 puffs inhalation Q4-6H PRN [celebrate MVI PO DAILY] fluticasone propionate 50 mcg/actuation (Flovent Diskus) 1 inh inhalation Q12H HPI HPI Comments History of Present Illness Details This?a?33?yo female who is s/p LSG without hiatal hernia repair on?09/04/22, by Dr Smith. Presents for 7.5 month post op visit. Weight today is 159 pounds, with a BMI of 28.2.? There has been a 95.8 pound weight loss,(initial weight 254.8 pounds) since starting the program on 04/16/22 reflecting a 37.5% total body weight loss and a weight loss of 57.5 pounds since surgery (operative weight 216.5 pounds) reflecting a 26.5% TBWL since surgery.? No complaints of nausea, emesis, abdominal pain or reflux. Reports infrequent but normal bowel movements every 2-3 days and uses Miralax regularly. States she is satisfied with her current meal plan and does not want to change at this time Present meal plan includes: 1 egg 830 am, coffee w cream and splenda noon salad w 2 forks tuna 3 pm ZP bar 6pm ZP bar or 1 egg or 3 forks rice/3 forks chicken ZP bar at 9 or 10 80 oz water oz water ? Exercise routine includes: walking outside 30 min daily, Any post op complications: none BHUMIKA: never DM: never HTN: never Hyperlipidemia: never GERD:?0-5 scale ??0 = no symptoms ??1 = symptoms noticeable but not bothersome 2 =symptoms bothersome but not daily ? 3 = symptoms bothersome and daily 4 = symptoms affect daily activities 5 = symptoms are incapacitating, unable to do daily activities ? How bad is the heartburn: 0 ? Heartburn while lying down: 0 ? Heartburn when standing up: 0 ? Heartburn after meals: 0 ? Does heartburn change your diet: 0 ? Does heartburn wake you up from sleep: 0 ? Do you have difficulty swallowin ? Do you have pain with swallowin ? If you take medicine for your reflux, does this affect your daily life: 0 Satisfaction with present condition - satisfied or not satisfied: satisfied [facility] Medical History BMI 39.0-39.9,adult Binge-eating disorder, mild Asthma GERD (gastroesophageal reflux disease) Morbid obesity Surgical History History of epidural anesthesia History of tubal ligation Social History Are you a primary healthcare project manager to a significant other at home: No Do you presently have visiting nurse or other home services: No Patient Tobacco Use Status: Never used Tobacco Second Hand Smoke Exposure: No service: No Current occupational status: employed Assessment & Plan Assessment & Plan (1) Overweight (BMI 25.0-29.9): Code(s): E66.3 - Overweight Plan: Check 6 month post op labs Change meal plan slightly to include 8 forks protein and 8 forks veg split have MVI at night to avoid nausea and text me if any issues RTC 6 weeks for 9 month post op f/u Orders: Orders Lipid Panel Today E51.9 - Thiamine deficiency, unspecified, E66.3 - Overweight, Z98.84 - Bariatric surgery status IRON PROFILE Today E51.9 - Thiamine deficiency, unspecified, E66.3 - Overweight, Z98.84 - Bariatric surgery status Complete Blood Count Auto Diff Today E51.9 - Thiamine deficiency, unspecified, E66.3 - Overweight, Z98.84 - Bariatric surgery status Vitamin B12 and Folate Today E51.9 - Thiamine deficiency, unspecified, E66.3 - Overweight, Z98.84 - Bariatric surgery status Zinc Today E51.9 - Thiamine deficiency, unspecified, E66.3 - Overweight, Z98.84 - Bariatric surgery status Vitamin A Today E51.9 - Thiamine deficiency, unspecified, E66.3 - Overweight, Z98.84 - Bariatric surgery status C Reactive Protein Today E51.9 - Thiamine deficiency, unspecified, E66.3 - Overweight, Z98.84 - Bariatric surgery status TSH reflex Free T4 Today E51.9 - Thiamine deficiency, unspecified, E66.3 - Overweight, Z98.84 - Bariatric surgery status Vitamin D 25-OH Total Today E51.9 - Thiamine deficiency, unspecified, E66.3 - Overweight, Z98.84 - Bariatric surgery status Basic Metabolic Panel Today E51.9 - Thiamine deficiency, unspecified, E66.3 - Overweight, Z98.84 - Bariatric surgery status Insulin Today E51.9 - Thiamine deficiency, unspecified, E66.3 - Overweight, Z98.84 - Bariatric surgery status Vitamin B1 Today E51.9 - Thiamine deficiency, unspecified, E66.3 - Overweight, Z98.84 - Bariatric surgery status Ferritin Today E51.9 - Thiamine deficiency, unspecified, E66.3 - Overweight, Z98.84 - Bariatric surgery status PTHI Today E51.9 - Thiamine deficiency, unspecified, E66.3 - Overweight, Z98.84 - Bariatric surgery status Hemoglobin A1c Today E51.9 - Thiamine deficiency, unspecified, E66.3 - Overweight, Z98.84 - Bariatric surgery status Telehealth Telehealth Location of provider rendering services: practice address Location of patient: other Patient Identification confirmed using: Name, : Yes Telehealth method: video Patient verbally consented to treatment: Yes Patient verbally consented to billing insurance company: Yes Patient informed of any privacy concerns related to visit: Yes Minutes spent on Phone/Video with Pt.: 15 Coding Level of Care Code Tele Est Pt Level 3 (95464) Diagnoses Overweight (BMI 25.0-29.9) E66.3 Time Spent (min) 15
[2023-04-20 09:19] VITALS: BMI 28.2
== END 2023-04-20 10:11 | disposition home or self-care (01) ==
LOC: HO.HBS 10:03
PROVIDERS: PCP Family Medicine; Visit Provider Physician Assistant Surgical
DX: E66.3 Overweight (principal)
CPT/HCPCS: 99213

== ENCOUNTER → 2023-04-20 10:03 | Outpatient (BNVA) | payer OTHER, MEDICAID, SELFPAY | PROVIDERS: PCP Family Medicine; Visit Provider Physician Assistant Surgical | DX: Z98.84 Bariatric surgery status (principal); E51.9 Thiamine deficiency, unspecified; E66.3 Overweight ==

== ENCOUNTER 2023-06-12 08:07 | Outpatient (REF) | payer OTHER, MEDICAID, SELFPAY ==
[2023-06-12 08:37] LABS: MANUAL DIFF FLAG NO
[2023-06-12 09:10] LABS: Basophils Percent Auto 0.3 % (0-2); Eosinophils Absolute Auto 0.1 X10*3/uL (0.0-0.4); Eosinophils Percent Auto 1.3 % (0-4); Hematocrit 38.3 % (37.0-47.0); Hemoglobin 12.7 g/dl (12.0-16.0); Imm Gran Abs Auto 0.01 X10*3/uL (0.00-0.03); Imm Gran Pct Auto 0.2 % (0.0-0.4); Lymphocytes Absolute Auto 2.5 X10*3/uL (1.2-4.9); Lymphocytes Percent Auto 40.6 % (20-40); Mean Corpuscular HGB Conc 33.2 g/dl (31.0-35.0); Mean Corpuscular Hemoglobin 30.8 pg (27.0-33.0); Mean Corpuscular Volume 92.7 fL (80.0-98.0); Mean Platelet Volume 10.5 fL (9.4-12.3); Monocytes Absolute Auto 0.3 X10*3/uL (0.1-1.2); Monocytes Percent Auto 5.1 % (2-11); Neutrophils Absolute Auto 3.2 x10*3/uL (2.0-8.3); Neutrophils Percent Auto 52.5 % (45-73); Platelet Count 237 X10*3/uL (160-400); Red Blood Count 4.13 X10*6/uL (4.20-5.50); Red Cell Distribution Width 11.9 % (11.0-16.0); White Blood Count 6.1 X10*3/uL (4.8-10.8)
[2023-06-12 09:26] LABS: Estimated Average Glucose 91 mg/dL; Hemoglobin A1c % 4.8 % (<6.0)
[2023-06-12 10:18] LABS: Folate 12.9 ng/mL (> or = 4.0); Vitamin B12 821 pg/mL (200-900)
[2023-06-12 10:51] LABS: Anion Gap 11 (12-20); Blood Urea Nitrogen 16 mg/dL (9-16); C Reactive Protein < 0.10 mg/dL (< or = 0.50); Calcium 9.2 mg/dL (8.4-10.2); Carbon Dioxide 29 mmol/L (22-29); Chloride 105 mmol/L (96-108); Cholesterol 172 mg/dL (<200); Estimated Glomerular Filt Rate > 60; Glucose Random 77 mg/dL (60-115); HDL Cholesterol 65 mg/dL (>40); Iron 88 mcg/dL (30-160); LDL Cholesterol Calculated 96 mg/dL (<100); Percent Iron Saturation 30 % (15-50); Sodium 141 mmol/L (135-145); Total Iron Binding Capacity 291 mcg/dL (228-428); Triglycerides 59 mg/dL (<150); Unsaturated Iron Binding 203 ug/dL
[2023-06-12 10:55] LABS: Ferritin 24 ng/mL (10-122); Insulin 5 uU/mL (2-29); TSH reflex Free T4 0.73 uIU/mL (0.32-4.0); Vitamin D 25-OH Total 39.1 ng/mL (>30)
[2023-06-15 17:17] LABS: Calcium (PTHI) 9.4 mg/dL (8.6-10.2); PTHI 23 pg/mL (16-77)
[2023-06-15 17:32] LABS: Zinc 67 mcg/dL (60-130)
[2023-06-17 09:28] LABS: Vitamin A 40 mcg/dL (38-98)
[2023-06-17 12:59] LABS: Vitamin B1 23 nmol/L (8-30)
== END 2023-06-12 08:08 | disposition home or self-care (01) ==
LOC: HO.LAB 08:07
PROVIDERS: Absent Provider Advanced Practice Midwife; PCP Family Medicine; Visit Provider Physician Assistant Surgical
DX: E51.9 Thiamine deficiency, unspecified (principal); E66.3 Overweight; Z98.84 Bariatric surgery status
CPT/HCPCS: 36415; 80048; 80061; 82306; 82607; 82728; 82746; 83036; 83525; 83540; 83970; 84425; 84443; 84590; 84630; 85025; 86140

== ENCOUNTER 2023-06-17 09:39 | Outpatient (AMB) | payer OTHER, MEDICAID, SELFPAY ==
--- NOTE | 2023-06-17 09:54 | A.OFFVIS_ITS ---
Intake Vital Signs 06/17/23 09:55 Height 5 ft 3 in Weight 161 lb BMI 28.5 BP 104/60 Intake Visit Reasons: yeast infection Intake Note: possible yeast infection, has been itching and has started to have a mild discharge Warehouse Guard Required: No Information Interpreted: non-clinical & clinical Adjunct Psychology Instructor: Adjunct Psychology Instructor Present (Peter) Allergies No Known Allergies Allergy (Verified 06/17/23 09:57) Medication List - Last Reconciled 06/17/23 by Meghan Enciso CNM albuterol sulfate 90 mcg/actuation 2 puffs inhalation Q4-6H PRN [celebrate MVI PO DAILY] fluticasone propionate 50 mcg/actuation (Flovent Diskus) 1 inh inhalation Q12H Is last menstrual period known: No (last month) Post menopausal: No HPI yeast infection HPI Details Has vaginal itching and burning and feels swollen for 2 days she tried putting a little witch Shante there and it did offer some relief.. PFSH Medical History BMI 39.0-39.9,adult Binge-eating disorder, mild Asthma GERD (gastroesophageal reflux disease) Morbid obesity Surgical History History of epidural anesthesia History of tubal ligation Social History Are you a primary palliative care nurse practitioner to a significant other at home: No Do you presently have visiting nurse or other home services: No Patient Tobacco Use Status: Never used Tobacco Second Hand Smoke Exposure: No service: No Current occupational status: employed Female Reproductive History Menstrual Age of Menarche: 11 Duration of menses: 6-7 days control method: other (tubal ligation) Total pregnancies: 4 Full term: 4 Number of Living Children: 4 Date of last pap smear: 01/29/23 (negative) Physical Exam Vital Signs: Last Vital Signs BP 104/60 06/17/23 09:55 BMI result Body Mass Index 28.5 Other: External exam done labia minora are reddened and slightly swollen appear dry with whitish clingy discharge consistent with yeast, no suspicion BV, Assessment & Plan Assessment & Plan (1) Yeast infection involving the vagina and surrounding area: Code(s): B37.31 - Acute candidiasis of vulva and vagina Plan Patient is fairly well educated about self-care and vulvar care. Sent prescription for Diflucan to her pharmacy and also a prescription for Monistat for comfort. 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 She will start today and if she needs to repeat the dose in 3 days she can and I am sending prescriptions for refills as well.. Medications: New miconazole nitrate 2% (Miconazole-7) May use p.r.n. for yeast infections 1 appful vaginal BEDTIME 7 days 45 grams 3RF fluconazole may repeat second dose 72 hrs after first dose if yeast symptoms persist 150 mg PO Q3D 2 doses 2 tabs 3RF Coding Level of Care Code Est Pt Level 3 (30323) Diagnoses Yeast infection involving the vagina and surrounding area B37.31
[2023-06-17 09:55] VITALS: BP 104/60; BMI 28.5
== END 2023-06-17 11:24 | disposition home or self-care (01) ==
LOC: HO.HWS 09:39
PROVIDERS: PCP Family Medicine; Visit Provider Advanced Practice Midwife
DX: B37.31 Acute candidiasis of vulva and vagina (principal)
CPT/HCPCS: 99213

== ENCOUNTER → 2023-06-17 09:39 | Outpatient (BNVA) | payer OTHER, MEDICAID, SELFPAY | PROVIDERS: PCP Family Medicine; Visit Provider Advanced Practice Midwife ==

== ENCOUNTER 2023-11-03 14:36 | Outpatient (AMB) | payer OTHER, MEDICAID, SELFPAY ==
--- NOTE | 2023-11-03 09:46 | MHC.OFFVISWM ---
Intake VS Expanded 11/03/23 09:48 Height 5 ft 3 in Weight 158 lb 3.2 oz BMI 28.0 Body Fat % 33.4 Body Fat Mass 52.8 Fat Free Mass 105.4 Visceral Fat Rating 10 Body Water % 45.7 Body Water Mass 72.2 Muscle Mass/Score 99 Basal Metabolic Rate/Score 1,402 Intake Visit Reasons: VIDEO PO LSG 09/04/22 Mountain Bike Guide Required: No Allergies No Known Allergies Allergy (Verified 06/17/23 09:57) Medication List - Last Reconciled 11/03/23 by CRICKET Macias albuterol sulfate 90 mcg/actuation 2 puffs inhalation Q4-6H PRN [celebrate MVI PO DAILY] fluconazole 150 mg PO Q3D 2 doses fluticasone propionate 50 mcg/actuation (Flovent Diskus) 1 inh inhalation Q12H miconazole nitrate 2% (Miconazole-7) 1 appful vaginal BEDTIME 7 days HPI HPI Comments History of Present Illness Details This?a?33?yo female who is s/p LSG without hiatal hernia repair on?09/04/22, by Dr Smith. Presents for 1 year 2 month month post op visit. She was last seen in the office in April for her 7.5 month follow up. Weight today is 158.2 pounds, with a BMI of 28.? There has been a 96.6 pound weight loss,(initial weight 254.8 pounds) since starting the program on 04/16/22 reflecting a 37.9% total body weight loss and a weight loss of 58.3 pounds since surgery (operative weight 216.5 pounds) reflecting a 26.9% TBWL since surgery.? No complaints of nausea, emesis, abdominal pain or reflux. Reports infrequent but normal bowel movements every 2-3 days and uses Miralax regularly. States she is satisfied with her current meal plan and does not want to change at this time She has noticed increased hair loss, she has been intermittently taking her MVI or celebrate shake, but not all the time. States her goal is to achieve a weight goal of 150-160. Present meal plan includes: 9am 2 eggs w ham and cheese, coffee w cream and splenda noon another 2 eggs w ham and cheese or crispy chicken in air fryer - 8-9 pieces popcorn chicken or salad w tuna and egg in Caesar salad 3 pm ZP bar 6pm 2 egg w ham and cheese or chicken from lunch or pizza anxious at night 9-10pm outshine fruit bars, 3 gm protein 110 floridalma, 17 gm sugar, 17 gm carbs 32 oz water oz water ? Exercise routine includes: treadmill 1 x per week 300 calories Any post op complications: none BHUMIKA: never DM: never HTN: resolved Hyperlipidemia: never GERD:?0-5 scale ??0 = no symptoms ??1 = symptoms noticeable but not bothersome 2 =symptoms bothersome but not daily ? 3 = symptoms bothersome and daily 4 = symptoms affect daily activities 5 = symptoms are incapacitating, unable to do daily activities ? How bad is the heartburn: 0 ? Heartburn while lying down: 0 ? Heartburn when standing up: 0 ? Heartburn after meals: 0 ? Does heartburn change your diet: 0 ? Does heartburn wake you up from sleep: 0 ? Do you have difficulty swallowin ? Do you have pain with swallowin ? If you take medicine for your reflux, does this affect your daily life: 0 Satisfaction with present condition - satisfied or not satisfied: satisfieed [facility] Medical History BMI 39.0-39.9,adult Binge-eating disorder, mild Asthma GERD (gastroesophageal reflux disease) Morbid obesity Surgical History History of epidural anesthesia History of tubal ligation Social History Are you a primary anesthesiologist and critical care to a significant other at home: No Do you presently have visiting nurse or other home services: No Patient Tobacco Use Status: Never used Tobacco Second Hand Smoke Exposure: No service: No Current occupational status: employed Female Reproductive History Menstrual Age of Menarche: 11 Assessment & Plan Assessment & Plan (1) Overweight (BMI 25.0-29.9): Code(s): E66.3 - Overweight Plan: Check yearly labs Change meal plan Celebrate 4 in 1, 1 scoop in 10 oz of almond milk at 9 2 eggs with veggies at noon Zone perfect bar at 3 Dinner with 6 forks of protein and 6 forks of veggies at 6 Fresh fruit either an apple or pear or kiwi or half a cup of fresh berries at 9 Increase exercise treadmill at home 300 calories per day 3 days per week [facility] gym 4 times per week weight training then treadmill for 200 calories. Return to clinic in 3-4 weeks Orders: Orders Hemoglobin A1c Today E51.9 - Thiamine deficiency, unspecified, E66.3 - Overweight, K74.00 - Hepatic fibrosis, unspecified, Z98.84 - Bariatric surgery status Complete Blood Count Auto Diff Today E51.9 - Thiamine deficiency, unspecified, E66.3 - Overweight, K74.00 - Hepatic fibrosis, unspecified, Z98.84 - Bariatric surgery status Vitamin B12 and Folate Today E51.9 - Thiamine deficiency, unspecified, E66.3 - Overweight, K74.00 - Hepatic fibrosis, unspecified, Z98.84 - Bariatric surgery status Zinc Today E51.9 - Thiamine deficiency, unspecified, E66.3 - Overweight, K74.00 - Hepatic fibrosis, unspecified, Z98.84 - Bariatric surgery status C Reactive Protein Today E51.9 - Thiamine deficiency, unspecified, E66.3 - Overweight, K74.00 - Hepatic fibrosis, unspecified, Z98.84 - Bariatric surgery status Ferritin Today E51.9 - Thiamine deficiency, unspecified, E66.3 - Overweight, K74.00 - Hepatic fibrosis, unspecified, Z98.84 - Bariatric surgery status Vitamin D 25-OH Total Today E51.9 - Thiamine deficiency, unspecified, E66.3 - Overweight, K74.00 - Hepatic fibrosis, unspecified, Z98.84 - Bariatric surgery status Insulin Today E51.9 - Thiamine deficiency, unspecified, E66.3 - Overweight, K74.00 - Hepatic fibrosis, unspecified, Z98.84 - Bariatric surgery status Lipid Panel Today E51.9 - Thiamine deficiency, unspecified, E66.3 - Overweight, K74.00 - Hepatic fibrosis, unspecified, Z98.84 - Bariatric surgery status IRON PROFILE Today E51.9 - Thiamine deficiency, unspecified, E66.3 - Overweight, K74.00 - Hepatic fibrosis, unspecified, Z98.84 - Bariatric surgery status Vitamin B1 Today E51.9 - Thiamine deficiency, unspecified, E66.3 - Overweight, K74.00 - Hepatic fibrosis, unspecified, Z98.84 - Bariatric surgery status Vitamin A Today E51.9 - Thiamine deficiency, unspecified, E66.3 - Overweight, K74.00 - Hepatic fibrosis, unspecified, Z98.84 - Bariatric surgery status TSH reflex Free T4 Today E51.9 - Thiamine deficiency, unspecified, E66.3 - Overweight, K74.00 - Hepatic fibrosis, unspecified, Z98.84 - Bariatric surgery status Basic Metabolic Panel Today E51.9 - Thiamine deficiency, unspecified, E66.3 - Overweight, K74.00 - Hepatic fibrosis, unspecified, Z98.84 - Bariatric surgery status Telehealth Telehealth Location of provider rendering services: practice address Location of patient: other Patient Identification confirmed using: Name, : Yes Telehealth method: voice only Patient verbally consented to treatment: Yes Patient verbally consented to billing insurance company: Yes Patient informed of any privacy concerns related to visit: Yes Minutes spent on Phone/Video with Pt.: 25 Coding Level of Care Code Tele Est Pt Level 4 (36065) Diagnoses Overweight (BMI 25.0-29.9) E66.3 Time Spent (min) 35
[2023-11-03 09:48] VITALS: BMI 28.0
== END 2023-11-03 14:38 | disposition home or self-care (01) ==
LOC: HO.HBS 14:36
PROVIDERS: PCP Family Medicine; Visit Provider Physician Assistant Surgical
DX: E66.3 Overweight (principal)
CPT/HCPCS: 99214

== ENCOUNTER → 2023-11-03 14:36 | Outpatient (BNVA) | payer OTHER, MEDICAID, SELFPAY | PROVIDERS: PCP Family Medicine; Visit Provider Physician Assistant Surgical | DX: E66.3 Overweight (principal); Z98.84 Bariatric surgery status; K74.00 Hepatic fibrosis, unspecified; E51.9 Thiamine deficiency, unspecified ==

== ENCOUNTER 2023-12-01 10:54 | Outpatient (REF) | payer OTHER, MEDICAID, SELFPAY ==
[2023-12-01 13:23] LABS: MANUAL DIFF FLAG NO
[2023-12-01 13:32] LABS: Basophils Percent Auto 0.5 % (0-2); Eosinophils Absolute Auto 0.1 X10*3/uL (0.0-0.4); Hematocrit 39.4 % (37.0-47.0); Hemoglobin 13.1 g/dl (12.0-16.0); Imm Gran Abs Auto 0.01 X10*3/uL (0.00-0.03); Imm Gran Pct Auto 0.2 % (0.0-0.4); Lymphocytes Absolute Auto 2.1 X10*3/uL (1.2-4.9); Lymphocytes Percent Auto 34.6 % (20-40); Mean Corpuscular HGB Conc 33.2 g/dl (31.0-35.0); Mean Corpuscular Hemoglobin 31.1 pg (27.0-33.0); Mean Corpuscular Volume 93.6 fL (80.0-98.0); Mean Platelet Volume 10.9 fL (9.4-12.3); Monocytes Absolute Auto 0.3 X10*3/uL (0.1-1.2); Monocytes Percent Auto 5.4 % (2-11); Neutrophils Absolute Auto 3.5 x10*3/uL (2.0-8.3); Neutrophils Percent Auto 58.3 % (45-73); Platelet Count 238 X10*3/uL (160-400); Red Blood Count 4.21 X10*6/uL (4.20-5.50); Red Cell Distribution Width 12.2 % (11.0-16.0)
[2023-12-01 14:11] LABS: Anion Gap 11 (12-20); Blood Urea Nitrogen 16 mg/dL (9-16); C Reactive Protein < 0.10 mg/dL (< or = 0.50); Calcium 9.6 mg/dL (8.4-10.2); Carbon Dioxide 29 mmol/L (22-29); Chloride 102 mmol/L (96-108); Cholesterol 186 mg/dL (<200); Estimated Glomerular Filt Rate > 60; Glucose Random 74 mg/dL (60-115); HDL Cholesterol 76 mg/dL (>40); Iron 131 mcg/dL (30-160); LDL Cholesterol Calculated 98 mg/dL (<100); Percent Iron Saturation 39 % (15-50); Potassium 3.9 mmol/L (3.3-5.1); Sodium 138 mmol/L (135-145); Total Iron Binding Capacity 337 mcg/dL (228-428); Triglycerides 60 mg/dL (<150); Unsaturated Iron Binding 206 ug/dL
[2023-12-01 14:15] LABS: Ferritin 20 ng/mL (10-122); Insulin 4 uU/mL (2-29); TSH reflex Free T4 0.77 uIU/mL (0.32-4.0); Vitamin D 25-OH Total 45.9 ng/mL (>30)
[2023-12-01 15:10] LABS: Estimated Average Glucose 97 mg/dL
[2023-12-01 16:54] LABS: Folate 12.8 ng/mL (> or = 4.0); Vitamin B12 825 pg/mL (200-900)
[2023-12-03 16:48] LABS: Zinc 63 mcg/dL (60-130)
[2023-12-06 00:53] LABS: Vitamin A 39 mcg/dL (38-98)
[2023-12-09 15:19] LABS: Vitamin B1 57 nmol/L (8-30)
== END 2023-12-01 10:55 | disposition home or self-care (01) ==
LOC: HO.HMGCLDS 10:54
PROVIDERS: PCP Family Medicine; Visit Provider Physician Assistant Surgical
DX: E66.3 Overweight (principal); Z98.84 Bariatric surgery status; K74.00 Hepatic fibrosis, unspecified; E51.9 Thiamine deficiency, unspecified
CPT/HCPCS: 36415; 80048; 80061; 82306; 82607; 82728; 82746; 83036; 83525; 83540; 84425; 84443; 84590; 84630; 85025; 86140

== ENCOUNTER 2024-01-12 14:36 | Outpatient (AMB) | payer OTHER, MEDICAID, SELFPAY ==
--- NOTE | 2024-01-12 12:51 | A.OFFVIS_ITS ---
VS Expanded 01/12/24 12:52 Height 5 ft 3 in Weight 158 lb BMI 28.0 Intake Visit Reasons: VIDEO PO LSG 09/04/22 Child Center Assistant Required: No Allergies No Known Allergies Allergy (Verified 06/17/23 09:57) Medication List - Last Reconciled 01/12/24 by CRICKET Macias albuterol sulfate 90 mcg/actuation 2 puffs inhalation Q4-6H PRN [celebrate MVI PO DAILY] fluconazole 150 mg PO Q3D 2 doses fluticasone propionate 50 mcg/actuation (Flovent Diskus) 1 inh inhalation Q12H miconazole nitrate 2% (Miconazole-7) 1 appful vaginal BEDTIME 7 days HPI Comments Details: This?a?33?yo female who is s/p LSG without hiatal hernia repair on?09/04/22, by Dr Smith. Presents for 1 year 4 month month post op visit. Weight today is 158 pounds, with a BMI of 28.? There has been a 96.8 pound weight loss,(initial weight 254.8 pounds) since starting the program on 04/16/22 reflecting a 37.9% total body weight loss and a weight loss of 58.5 pounds since surgery (operative weight 216.5 pounds) reflecting a 26.9% TBWL since surgery.? No complaints of nausea, emesis, abdominal pain or reflux. Reports infrequent but normal bowel movements every 2-3 days and uses Miralax regularly. States she has not been consistent with her meal plan and she has been out and eating out more. She additionally states that she has not been exercising very much. She has noticed increased hair loss, she has been intermittently taking her MVI or celebrate shake, but not all the time. States her goal is to achieve a weight goal of 150-160. Present meal plan includes: Celebrate 4 in 1, 1 scoop in 10 oz of almond milk at 9 2 eggs with veggies at noon Zone perfect bar at 3 Dinner with 6 forks of protein and 6 forks of veggies at 6 Fresh fruit either an apple or pear or kiwi or half a cup of fresh berries at 9 32 oz water oz water? Exercise routine includes: treadmill 2 x per week 300 calories [facility] Medical History BMI 39.0-39.9,adult Binge-eating disorder, mild Asthma GERD (gastroesophageal reflux disease) Morbid obesity Surgical History History of epidural anesthesia History of tubal ligation Social History Are you a primary long term acute care registered nurse to a significant other at home: No Do you presently have visiting nurse or other home services: No Patient Tobacco Use Status: Never used Tobacco Second Hand Smoke Exposure: No service: No Current occupational status: employed Female Reproductive History Menstrual Age of Menarche: 11 Telehealth Telehealth Telehealth Platform: Telephone Location of provider rendering services: practice address Location of patient: address on file Patient Identification confirmed using: Name, : Yes Telehealth method: voice only Patient verbally consented to treatment: Yes Patient verbally consented to billing insurance company: Yes Patient informed of any privacy concerns related to visit: Yes Minutes spent on Phone/Video with Pt.: 12 Assessment & Plan Assessment & Plan (1) Overweight (BMI 25.0-29.9): Code(s): E66.3 - Overweight Category: Medical Plan: Discussed the importance of consistency and dedication to the meal plan and exercise plan. She states that she will adhere to the meal plan. I advised her that if she is outside the home and is taking the kids to [employer], not to eat anything there but rather to have a 26 g fair life ready to drink shake. Ideally though she would do better with a home prepared meal with the appropriate forks of protein and vegetables. We additionally discussed the critical need of increasing her exercise, with a goal of burning 300 calories per day, 7 days a week. We will have her return to the office for her 18 month follow-up appointment in March. Encouraged to text weekly with her weight and if any questions or concerns.
[2024-01-12 12:52] VITALS: BMI 28.0
== END 2024-01-12 14:41 | disposition home or self-care (01) ==
LOC: HO.HBS 14:36
PROVIDERS: PCP Family Medicine; Visit Provider Physician Assistant Surgical
DX: E66.3 Overweight (principal)
CPT/HCPCS: 99213

== ENCOUNTER → 2024-01-12 14:36 | Outpatient (BNVA) | payer OTHER, MEDICAID, SELFPAY | PROVIDERS: PCP Family Medicine; Visit Provider Physician Assistant Surgical ==

== ENCOUNTER 2024-07-13 11:32 | Outpatient (REF) | payer OTHER, MEDICAID, SELFPAY ==
[2024-07-13 11:49] LABS: MANUAL DIFF FLAG NO
[2024-07-13 12:08] LABS: Basophils Absolute Auto 0.1 X10*3/uL (0.0-0.2); Basophils Percent Auto 0.6 % (0-2); Eosinophils Absolute Auto 0.1 X10*3/uL (0.0-0.4); Eosinophils Percent Auto 1.5 % (0-4); Hematocrit 37.6 % (37.0-47.0); Hemoglobin 12.5 g/dl (12.0-16.0); Imm Gran Abs Auto 0.03 X10*3/uL (0.00-0.03); Imm Gran Pct Auto 0.4 % (0.0-0.4); Lymphocytes Absolute Auto 2.4 X10*3/uL (1.2-4.9); Lymphocytes Percent Auto 30.3 % (20-40); Mean Corpuscular HGB Conc 33.2 g/dl (31.0-35.0); Mean Corpuscular Hemoglobin 30.9 pg (27.0-33.0); Mean Corpuscular Volume 93.1 fL (80.0-98.0); Monocytes Absolute Auto 0.5 X10*3/uL (0.1-1.2); Monocytes Percent Auto 5.8 % (2-11); Neutrophils Absolute Auto 4.9 x10*3/uL (2.0-8.3); Neutrophils Percent Auto 61.4 % (45-73); Platelet Count 253 X10*3/uL (160-400); Red Blood Count 4.04 X10*6/uL (4.20-5.50); Red Cell Distribution Width 12.7 % (11.0-16.0); White Blood Count 7.9 X10*3/uL (4.8-10.8)
[2024-07-13 12:35] LABS: Alanine Aminotransferase 32 U/L (0-31); Albumin Level 4.2 g/dL (3.5-5.0); Alkaline Phosphatase 50 U/L (39-117); Anion Gap 9 (12-20); Aspartate Amino Transferase 36 U/L (5-31); Bilirubin Total 0.4 mg/dL (0.0-1.0); Blood Urea Nitrogen 15 mg/dL (9-16); Calcium 10.1 mg/dL (8.4-10.2); Carbon Dioxide 28 mmol/L (22-29); Chloride 106 mmol/L (96-108); Estimated Glomerular Filt Rate > 60; Glucose Random 81 mg/dL (60-115); Potassium 4.4 mmol/L (3.3-5.1); Sodium 139 mmol/L (135-145); Total Protein 7.5 g/dL (6.5-8.0)
[2024-07-13 12:52] LABS: TSH reflex Free T4 0.99 uIU/mL (0.32-4.0)
== END 2024-07-13 11:33 | disposition home or self-care (01) ==
LOC: HO.LAB 11:32
PROVIDERS: PCP Family Medicine; Visit Provider Family Medicine
DX: R00.1 Bradycardia, unspecified (principal); R53.83 Other fatigue
CPT/HCPCS: 36415; 80053; 84443; 85025

== ENCOUNTER 2024-09-14 09:51 | Outpatient (REF) | payer OTHER, MEDICAID, SELFPAY ==
--- OUTSIDE RECORDS SUMMARY | 2024-09-14 12:07 | XMS_ITS | Encounter Summary ---
Author Organization [employer] Address [address] [facility] [address] [place] [address] Care Team Providers Care Hand Mexican Food Maker Name Role Phone Anh Solomon MD Primary Care Provider [phone] Reason for Visit * Reason Onset Date Comments Appointment Request 04/27/2024 Encounter Details Date Type Department Care Team ([facility] st Contact Info) Description 04/27/[address] [facility] MEDICINE [address] [place], [place] [phone] Anh Solomon MD [address] [place], [place] [phone] Appointment Request Social History Tobacco Use Types [...] on filedocumented in this encounter Care Teams Hand Mexican Food Maker Relationship Specialty Start Date End Date Anh Solomon MD [address] [place] [phone] PCP - General Family Medicine 08/03/18 documented as of this encounter
--- OUTSIDE RECORDS SUMMARY | 2024-09-14 12:07 | XMS_ITS | Encounter Summary ---
Author Organization [employer] Address [address] [facility] [address] [place] [address] Care Team Providers Care Broadcast Chief Engineer Name Role Phone Anh Solomon MD Primary Care Provider [phone] Reason for Visit * Reason Onset Date Comments october recall 08/25/2024 Encounter Details Date Type Department Care Team ([facility] st Contact Info) Description 08/25/[address] [facility] [address] [place] [address] Pilar Parada MA october recall Social History [...] documented as of this encounter Care Teams Broadcast Chief Engineer Relationship Specialty Start Date End Date Anh Solomon MD [address] [place] [address] PCP - General Family Medicine 08/03/18 documented as of this encounter
--- OUTSIDE RECORDS SUMMARY | 2024-09-14 12:07 | XMS_ITS | Clinical Summary ---
Author Organization [employer] Address [address] [facility] [address] [place] [address] Care Team Providers Care Licensed Practical Vocational Nurse Name Role Phone Anh Solomon MD Primary Care Provider [phone] Allergies No known active allergies Medications * [...] on 06/02/24 - patient was seen by [facility] on 06/02/24 and was arranged for off-site [...] on 06/02/24 - patient was seen by [facility] on 06/02/24 and will be arranged for counseling service - prescribed escitalopram 5 mg daily and patient will start medication after her asthma symptoms improve - will schedule for short-term follow-up Assessment & Plan (06/03/2024 11:46 AM EDT): - PHQ9 score 15 and GAD7 score 14 - patient is seen by [facility] today and will be arranged for counseling [...] (12/10/2022 3:08 PM EDT): - following with organ fixer - last PAP in Jun 2018, due this year - evaluate with pelvic US Encounters * This document contains information received from the source organization and may not represent a complete record from that organization. Date Type Department Care Team Description 08/25/2024 Telephone [facility] [place] [address] Pilar Parada MA october recall 07/13/2024 Telephone [facility] [address] Anh Solomon MD Request For Order(s) 07/12/2024 1:45 PM EST Office Visit [facility] [place] [address] Anh Solomon MD Mild intermittent asthma without complication (Primary Dx); Current moderate episode of major depressive disorder without prior episode (CMS/HCC); History of sleeve gastrectomy; Fatigue, unspecified type; Bradycardia; Lymph nodes enlarged 07/12/2024 Travel 07/08/2024 Telephone [facility] [place] [address] Pilar Parada MA chart prep 06/16/2024 Telephone [facility] [place] [address] Anh Solomon MD FYI from Last 3 [...] Free T4 0.99 0.32 - 4.0 uIU/mL [facility] Blood 07/13/2024 11:4 7 AM EST 07/13/2024 11:47 AM EST us Anh Solomon MD LAB BLOOD ORDERABLES Final Resul t [facility] [address] [place] [address] [phone] * (ABNORMAL) CBC auto differential (07/13/2024 11:47 AM EST) White Blood Count 7.9 4.8 - 10.8 X10*3/uL [facility] Red Blood Count 4.04(L) 4.20 - 5.50 X10*6/uL [facility] Hemoglobin 12.5 12.0 - 16.0 g/dl [facility] Hematocrit 37.6 37.0 - 47.0 % [facility] Mean Corpuscular Volume 93.1 80.0 - 98.0 fL [facility] Mean Corpuscular Hemoglobin 30.9 27.0 - 33.0 pg [facility] Mean Corpuscular HGB Conc 33.2 31.0 - 35.0 g/dl [facility] Red Cell Distribution Width 12.7 11.0 - 16.0 % [facility] Platelet Count 253 160 - 400 X10*3/uL [facility] Mean Platelet Volume 10.0 9.4 - 12.3 fL [facility] Neutrophils Percent Auto 61.4 45 - 73 % [facility] Imm Gran Pct Auto 0.4 0.0 - 0.4 % [facility] Lymphocytes Percent Auto 30.3 20 - 40 % [facility] Monocytes Percent Auto 5.8 2 - 11 % [facility] Eosinophils Percent Auto 1.5 0 - 4 % [facility] Basophils Percent Auto 0.6 0 - 2 % [facility] NRBC Pct Auto 0.0 0.0 - 0.2 /100WBC [facility] Neutrophils Absolute Auto 4.9 2.0 - 8.3 x10*3/uL [facility] Imm Gran Abs Auto 0.03 0.00 - 0.03 X10*3/uL [facility] Lymphocytes Absolute Auto 2.4 1.2 - 4.9 X10*3/uL [facility] Monocytes Absolute Auto 0.5 0.1 - 1.2 X10*3/uL [facility] Eosinophils Absolute Auto 0.1 0.0 - 0.4 X10*3/uL [facility] Basophils Absolute Auto 0.1 0.0 - 0.2 X10*3/uL [facility] NRBC Abs Auto 0.000 0.0 - 0.012 X10*3/uL [facility] Blood Venous blood specimen / Unknown 07/13/2024 11:47 AM EST 07/13/2024 11:47 AM EST us Anh Solomon MD LAB BLOOD ORDERABLES Final Resul t [facility] [address] [place] [phone] * (ABNORMAL) Comprehensive Metabolic Panel (07/13/2024 11:47 AM EST) Sodium 139 135 - 145 mmol/L [facility] Potassium 4.4 3.3 - 5.1 mmol/L [facility] Chloride 106 96 - 108 mmol/L [facility] Carbon Dioxide 28 22 - 29 mmol/L [facility] Anion Gap 9(L) 12 - 20 [facility] Urea Nitrogen (BUN) 15 9 - 16 mg/dL [facility] Creatinine, Serum 0.70 0.5 - 1.4 mg/dL [facility] Estimated Glomerular Filt Rate >60 [facility] Comment:Chronic Kidney Disea se: Estimated GFR < 60 mL/min/[id number] Kidney Disease: Estimated GFR < 15 mL/min/1.73m2 Glucose 81 60 - 115 mg/dL [facility] Calcium 10.1 8.4 - 10.2 mg/dL [facility] Bilirubin, Total 0.4 0.0 - 1.0 mg/dL [facility] Aspartate Amino Transferase 36(H) 5 - 31 U/L [facility] Alanine Aminotransferase 32(H) 0 - 31 U/L [facility] Total Protein 7.5 6.5 - 8.0 g/dL [facility] Albumin Level 4.2 3.5 - 5.0 g/dL [facility] Alkaline Phosphatase 50 39 - 117 U/L [facility] Blood Venous blood specimen / Unknown 07/13/2024 11:47 AM EST 07/13/2024 11:47 AM EST us Anh Solomon MD LAB BLOOD ORDERABLES Final Resul t Performing Organization Address City/State/[facility] Co de Phone Number [facility] [address] [place] [phone] * Pap Smear (01/28/2023 9:46 AM EDT) 01/28/2023 9:46 AM EDT 01/29/2023 8:45 AM EDT Narrative [facility] - 02/14/2023 3:25 PM EDT ----- ------- Name: Jewell Ramires ? Age/Sex: 32/F ? : 1990 Unit#: [id number] ?? Attend Dr: Meghan Enciso CNM ?Re01/28/23 ?Status: DEP REF ? Location: HO.LNP ?Disch: ? ----- ------- SPEC : [id number] ? RECD: 01/29/23 ? STATUS: ??SOUT ? REQ NUM: [id number] ? MARCELLE: 01/28/23 ? SUBM DR: Meghan [...] 66, 68) ? HPV testing performed by [employer], [place]. ??See reference laboratory ?? portion of the EMR for entire report. ?Clinical Information LMP: Previous PAP test: 07/01/18, Abnormal Other surgery: Colpo 02/06/06 ASCUS Other history: 2014 ASCUS, 2007 LGSIL ? Material Received ?? ThinPrep-Cervical Copies To: ?? Meghan Enciso CNM ?? [address] [place] [facility] ?? [place] [address] ?? [phone] ?? Anh Solomon MD ?? [address] [facility] ?? [place] ?? ----- ------- Signed (signature on file) Lenora Ye Galileo 02/14/23 1525 ? ----- ------- ? END OF REPORT ? us [facility] External Provider LAB CYT OLOGY ORDERABLES Final Result [facility] [address] [place] [address] [phone] * Hm Pap Smear (01/28/2023) Pathologist [facility] Pap Negative for intraephithelial lesion or malignancy Negative for intraephithelial lesion or malignancy, Other HPV Undetected [facility] Unassigned Pcp HEALTH MAINTENANCE Final Result * HEPATITIS C ANTIBODY RFLX (06/14/2021 12:41 PM EST) [facility] Hepatitis C Antibody Nonreactive Nonreactive [facility] Comment: Antibodies to HCV not detected; does not exclude early acute HCV infection. 06/14/2021 12:4 1 PM EST Anh Solomon MD HISTORICAL/NON ORDERABLE LABS Fi nal Result Performing Organization Address [facility] Phone Number [facility] [address] * HIV AB/AG (06/14/2021 12:41 PM EST) Pathologist [facility] HIV AB/AG Nonreactive Nonreactive [facility] Comment: HIV-1 p24 Ag and/or [...] detection of this assay. ?? The [employer] Specialist HIV Ag/Ab Combo assay result and supplemental assay results should be interpreted in conjunction with the patient's clinical presentation, history and other laboratory results. ??If the results are inconsistent with clinical evidence, additional testing is suggested to confirm the result. Hepatitis B Surface Antigen Negative Negative [facility] 06/14/2021 12:4 1 PM EST Anh Solomon MD HISTORICAL/NON ORDERABLE LABS Fi nal Result Performing Organization Address [facility] de Phone Number [facility] [address] from Last 3 Months or Most Recently Relevant to Health Maintenance Insurance [employer] Care Teams Licensed Practical Vocational Nurse Relationship Specialty Start Date End Date Anh Solomon MD [address] [place] [phone] PCP - General Family Medicine 08/03/18
[2024-09-14 17:20] LABS: Bacterial Vaginosis PCR NEGATIVE (Negative); Candida Group PCR DETECTED (Not Detect); Candida glab krusei PCR NOT DETECTED (Not Detect); Trichomonas vaginalis PCR NOT DETECTED (Not Detect)
== END 2024-09-14 09:52 | disposition home or self-care (01) ==
LOC: HO.LAB 09:51
PROVIDERS: PCP Family Medicine; Visit Provider Advanced Practice Midwife
DX: N89.8 Other specified noninflammatory disorders of vagina (principal)
CPT/HCPCS: 81515

== ENCOUNTER 2024-09-14 09:51 | Outpatient (AMB) | payer OTHER, MEDICAID, SELFPAY ==
[2024-09-14 09:48] VITALS: BP 120/70; BMI 28.0
--- NOTE | 2024-09-14 09:48 | MHC.OFFVIS ---
Vital Signs 09/14/24 09:48 Height 5 ft 3 in Weight 158 lb BMI 28.0 BP 120/70 Intake Visit Reasons: Yeast Infection County Surveyor Required: No County Surveyor Services: County Surveyor Present Information Interpreted: clinical only Memorial Adviser: Memorial Adviser Present Allergies No Known Allergies Allergy (Verified 09/14/24 09:52) Medication List - Last Reconciled 09/14/24 by Meghan Enciso CNM albuterol sulfate 90 mcg/actuation 2 puffs inhalation Q4-6H PRN [celebrate MVI PO DAILY] fluconazole 150 mg PO Q3D 2 doses fluticasone propionate 50 mcg/actuation (Flovent Diskus) 1 inh inhalation Q12H Is last menstrual period known: Yes Last menstrual period: 09/04/24 HPI HPI Yeast Infection: Details: Patient is here because she thinks she has a yeast infection she had 1 in 2022 in the symptoms are the same itching and burning and the Monistat historically has not really work for her the Diflucan has helped. This started on Thursday she also has a little bit of a whitish discharge that is different for her as well. [facility] Medical History (Updated 09/14/24 @ 10:14 by Meghan Enciso CNM) BMI 39.0-39.9,adult Binge-eating disorder, mild Asthma GERD (gastroesophageal reflux disease) Morbid obesity Surgical History History of epidural anesthesia History of tubal ligation Social History Are you a primary care coordination manager to a significant other at home: No Do you presently have visiting nurse or other home services: No Patient Tobacco Use Status: Never used Tobacco Second Hand Smoke Exposure: No service: No Current occupational status: employed Female Reproductive History Menstrual Age of Menarche: 11 Duration of menses: 3-5 days Date of last menstrual period: 09/04/24 control method: permanent sterilization Total pregnancies: 4 Full term: 4 Physical Exam Vital Signs: Last Vital Signs BP 120/70 09/14/24 09:48 BMI result Body Mass Index 28.0 Other: Vulva labia minora and the vaginal introitus in in side of vagina is reddened and inflamed consistent with yeast there is a thin white discharge that could be consistent with yeast and could be normal. External Female Exam: normal external appearance and normal appearance of the urethra Speculum Exam - Vagina: normal appearance of the vagina and normal vaginal discharge Speculum Exam - Cervix: normal appearance of the cervix and Cervical os closed Results Reviewed Results Reviewed: [place]: Jewell Ramires Age/Sex: 32/F Attending: Meghan Enciso CNM : 1990 Submitted by: Meghan Enciso CNM Copies to: Anh Solomon MD MR #: [id number] Status: DEP REF Collected: 01/28/23 Location: [facility] Received: 01/29/23 Interpretation Satisfactory for evaluation. Negative for intraepithelial lesion or malignancy. HPV mRNA E6/E7: NOT DETECTED This assay detects E6/E7 viral messenger RNA (mRNA) from 14 high-risk HPV types (16, 18, 31, 33, 35, 39, 45, 51, 52, 56, 58, 59, 66, 68) HPV testing performed by [facility], [place], [place]. See reference laboratory portion of the EMR for entire report. Clinical Information LMP: Previous PAP test: 07/01/18, Abnormal Other surgery: Colpo 02/06/06 ASCUS Other history: 2013 ASCUS, 2007 LGSIL Material Received ThinPrep-Cervical Copies To Meghan Enciso CNM [address] [place] [address] Dr. Norton [address] [place] [address] [phone] Anh Solomon MD [address] [place] [id number] Electronically Signed By: Lenora Gurrola 02/14/23 3752 The Pap Test is a screening pr Assessment & Plan Assessment & Plan (1) Yeast infection involving the vagina and surrounding area: Comment: Patient finds Diflucan more effective for her then Monistat we will send Rx with refills patient is well educated about yeast prevention. Code(s): B37.31 - Acute candidiasis of vulva and vagina Category: Medical (2) Hx of abnormal cervical Pap smear: Comment: Pap is negative with negative HPV Code(s): Z87.42 - Personal history of other diseases of the female genital tract Category: Medical (3) History of tubal ligation: Code(s): Z98.51 - Tubal ligation status Category: Surgical Plan Reviewed care of her vagina. She thinks is also possibility that perfumed so contributed to the situation as well. Discussed self-care. She did try witch Shante but it burn she had it at home after childbirth. Rx for Diflucan sent to [facility] her pharmacy and I recommend she pick up man a refills sometime during the year so she always has at least 1 refill at home should she need it so she does not have to be seen for this. Discussed her Pap smear history she is a 18 years since her last abnormal per her memory. Suggested next Pap might want to be done in 2025. She does see her primary care provider for all primary care needs she has done very well keeping weight off after her surgery by eating well and exercising. Her 4 daughters are doing well 18 to age 5 or 6. Medications: Refilled fluconazole may repeat second dose 72 hrs after first dose if yeast symptoms persist 150 mg PO Q3D 2 doses 2 tabs 4RF Coding Level of Care Code Est Pt Level 3 (65042) Diagnoses Yeast infection involving the vagina and surrounding area B37.31 Hx of abnormal cervical Pap smear Z87.42 History of tubal ligation Z98.51
--- OUTSIDE RECORDS SUMMARY | 2024-09-14 11:27 | XMS_ITS | Encounter Summary ---
Author Organization [facility] Address [address] [place] [address] Care Team Providers Care Saw Cleaner Name Role Phone Anh Solomon MD Primary Care Provider [phone] Reason for Visit * Reason Onset Date Comments Appointment Request 04/27/2024 Encounter Details Date Type Department Care Team ([facility] st Contact Info) Description 04/27/2024 Telephone [facility] [address], [place] [phone] Anh Solomon MD [address], [place] [phone] Appointment Request Social History Tobacco Use Types Packs/Day Years Used Date Smoking Tobacco: Never Passive Smoke Exposure: Never Smokeless Tobacco: Never Housing Stability Answer Date Recorded What is your housing situation today? I have [facility] 06/01/[address] you li ve. Do you have problems with any of the following? None of the above 06/01/2023 Food Insecurity Answer Date Recorded Within the past 12 months, y ou worried that your food would run out before you got money to buy more: Never True 06/01/2023 Within the past 12 months,th e food you bought just didn't last and you didn't have enough money to get more: Never True Transportation Answer Date Recorded In the past 12 months, has l ack of transportation kept you from medical appts, meetings, work or from getting things needed for daily living? No 06/01/2023 Utilities Answer Date Recorded In the past 12 months, has t he electric, gas, oil or water company threatened to shut off services in your home? No 06/01/2023 Depression Answer Date Recorded Patient Health Questionnaire-2 Score 3 12/10/2022 Comments Unknown Sex and Gender Information Value Date Recorded Sex Assigned at Female 06/02/2022 10:15 AM EDT Legal Sex Female 10:15 AM EDT Gender Identity Female 06/02/2022 10:15 AM EDT Sexual Orientation Straight 06/02/2022 10 :15 AM EDT documented as of this encounter Miscellaneous Notes * Telephone Encounter - Thad Mahajan - 04/27/2024 8:42 AM EDT Tc from patient calling to cancel appt for 04/27 and would like a call back to reschedule preferablywould like a Thursday or a documented in this encounter Plan of Treatment Not on file documented as of this encounter Visit Diagnoses Not on filedocumented in this encounter Care Teams Saw Cleaner Relationship Specialty Start Date End Date Anh Solomon MD [address] [place] [id number] PCP - General Family Medicine 08/03/18 documented as of this encounter
--- OUTSIDE RECORDS SUMMARY | 2024-09-14 11:27 | XMS_ITS | Clinical Summary ---
Author Organization [employer] Address [address] [facility] [address] [place] [address] Care Team Providers Care Executive Pastry Chef Name Role Phone Anh Solomon MD Primary Care Provider Allergies No known active allergies Medications * This document contains information received from the source organization and may not represent a complete record from that organization. ketoconazole (NIZOral) 2 % cream Apply topically Once per day. 60 g 11 4 Active albuterol (ProAir HFA) 108 (90 Base) MCG/ACT inhaler Inhale 2 puffs every 4 (four) hours if needed for wheezing or shortness of breath. 18 g 1 4 Active albuterol (2.5 MG/3ML) 0.083% nebulizer solution Take 3 mL (2.5 mg) by nebulization every 4 (four) hours if needed for wheezing or shortness of breath. 75 mL 2 4 Active escitalopram (Lexapro) 5 MG tablet Take 1 tablet (5 mg) by mouth Once per day. 90 tablet 3 4 Active ibuprofen 800 MG tablet take 1 tablet by oral route up to 3 times daily as needed for pain / fever. Take with food. DO NOT TAKE EVERYDAY FOR > 2 wks 2 Active fluticasone furoate (Arnuity Ellipta) 100 MCG/ACT inhaler Take 1 puff by mouth once daily 30 each 3 4 Active Active Problems Problem Noted Date Diagnosed Date Bradycardia 07/12/2024 Assessment & Plan (07/15/2024 11:19 AM EST): - mild, likely benign Hair loss 06/03/2024 Assessment & Plan (06/03/2024 11:48 AM EDT): - normal TSH - well-balanced diet with vitamin supplementation Seborrheic dermatitis 06/02/2024 Assessment & Plan (06/02/2024 11:32 AM EDT): - patient has tried topical steroid - will try topical ketoconazole Lymph nodes enlarged 06/02/2024 Assessment & Plan (07/15/2024 11:19 AM EST): - bilateral and cervical, right submandibular and left anterior cervical - mobile, non-tender - likely reactive, but has not resolved - evaluate with CT Assessment & Plan (06/02/2024 12:56 PM EDT): - bilateral and cervical, right mandibular and left anterior cervical - mobile, non-tender - likely reactive - agreed to monitor at this time and reassess at next visit Major depressive disorder 12/10/2022 Assessment & Plan (07/15/2024 11:26 AM EST): - PHQ9 score 15 and GAD7 score 14 on 06/02/24 - patient was seen by [facility] on 06/02/24 and was arranged for off-site counseling service - PHQ9 score 11 and GAD7 score 9 on 07/12/24 - prescribed escitalopram 5 mg daily, tolerating well with symptom relief. Discussed about dose increase, but patient is hesitant. Continue current dose. - now follows with N. Assessment & Plan (06/09/2024 10:50 AM EST): - PHQ9 score 15 and GAD7 score 14 on 06/02/24 - patient was seen by [facility] on 06/02/24 and will be arranged for counseling service - prescribed escitalopram 5 mg daily and patient will start medication after her asthma symptoms improve - will schedule for short-term follow-up Assessment & Plan (06/03/2024 11:46 AM EDT): - PHQ9 score 15 and GAD7 score 14 - patient is seen by [facility] today and will be arranged for counseling service - will start escitalopram 5 mg daily and follow-up in 1 week by telephone for titration Assessment & Plan (12/10/2022 3:11 PM EDT): - pt was able to contract her safety today - pt is interested in getting counseling; pt cannot wait for [facility] clinician today. Will refer [facility] - pt is hesitant to start medications History of sleeve gastrectomy 12/10/2022 Assessment & Plan (07/12/2024 2:21 PM EST): Done 09/04/22 Assessment & Plan (12/10/2022 3:10 PM EDT): 09/04/22 PCOS (polycystic ovarian syndrome) 12/09/2022 Assessment & Plan (12/10/2022 3:08 PM EDT): - s/p bariatric surgery 09/05/22 -work on lifestyle modifications Fatigue 12/09/2022 Assessment & Plan (07/12/2024 2:16 PM EST): - multifactorial (depression, s/p bariatric surgery, asthma, allergic rhinitis) - increased physical activity without significant relief. - ordered labs 07/22/24 Assessment & Plan (12/10/2022 3:10 PM EDT): - multifactorial (depression, s/p bariatric surgery, asthma, allergic rhinitis) - increase physical activity Vitamin D deficiency 02/09/2018 Gastroesophageal reflux disease 07/24/2015 Assessment & Plan (12/10/2022 3:07 PM EDT): - previously on omeprazole prn - no need for medication currently Allergic rhinitis 03/19/2015 Assessment & Plan (06/02/2024 11:21 AM EDT): -continue cetrizine prn -pt no longer on Singulair Assessment & Plan (12/09/2022 2:36 PM EDT): -continue cetrizine prn -pt no longer on Singulair Asthma 11/19/2012 Assessment & Plan (07/12/2024 2:23 PM EST): Asthma controlled with 1-2 exacerbations a week. Currently only on Flovent inhaler. - will prescribe annuity inhaler for PRN use. Assessment & Plan (06/09/2024 10:49 AM EST): -patient is having exacerbation currently. Will treat with prednisone -switched to asmanex -continue albuterol both nebulizer and inhaler prn -pt is no longer on Singulair Assessment & Plan (06/02/2024 11:21 AM EDT): -previously on Flovent as maintenance, will switch to another ICS -continue albuterol both nebulizer and inhaler prn -pt is no longer on Singulair Assessment & Plan (12/09/2022 2:36 PM EDT): -continue Flovent as maintenance -continue albuterol both nebulizer and inhaler prn -pt is no longer on Singulair Overweight 11/19/2012 Assessment & Plan (12/10/2022 3:06 PM EDT): - s/p sleeve gastrectomy on 09/04/22. - continue vitamin supplementation - avoid NSAIDs - continue staying physically active - discussed about beneficial effect of exercise / physical activity for both metal and physical health Resolved Problems Problem Noted Date Diagnosed Date Resolved Date Spotting between menses 12/09/202205/05 Coccyx pain 12/09/2022 06/02/2024 Assessment & Plan (12/10/2022 3:09 PM EDT): - continue using doughnuts pillow / cushion Abnormal uterine bleeding (AUB) 12/09/2022 06/02/2024 Assessment & Plan (12/10/2022 3:08 PM EDT): - following with bag presser - last PAP in Jun 2018, due this year - evaluate with pelvic US Encounters * This document contains information received from the source organization and may not represent a complete record from that organization. Date Type Department Care Team Description 08/25/2024 Telephone [facility] [place] [address] Pilar Parada MA october recall 07/13/2024 Telephone [facility] [place] [address] Anh Solomon MD Request For Order(s) 07/12/2024 1:45 PM EST Office Visit [facility] [place] [address] Anh Solomon MD Mild intermittent asthma without complication (Primary Dx); Current moderate episode of major depressive disorder without prior episode (CMS/HCC); History of sleeve gastrectomy; Fatigue, unspecified type; Bradycardia; Lymph nodes enlarged 07/12/2024 Travel 07/08/2024 Telephone [facility] [place] [address] Pilar Parada MA chart prep 06/16/2024 Telephone [facility] [place] [address] Anh Solomon MD FYI from Last 3 Months Immunizations Name Administration Dates Next Due DTaP 04/23/1994, 2,05/03/1991,12/01,1990 HPV, Quadrivalent 12/03/2012,02/01/2007,11/24/19 07 Hep B, Adolescent or Pediatric 11/01/1999,1998,02/18/1999 Hib (HbOC) 04/23/1994, 2,05/03/1991,12/01 Influenza injectable quadriv alent IIV4 with preservative 09/28/2017,05/30/2016,05/03/2015 Influenza injectable quadriv alent preservative free 05/09/2020,08/15/2019,10/12/2018 Influenza, IIV3, injectable 04/14/2012 Influenza, seasonal, injecta ble, preservative free 06/02/2024 MMR 11/05/1994,06/03/1991 OPV 04/23/1994, 2,1990,09/03 Pfizer Covid-19 Vaccine 12+ 06/02/2024 Pneumococcal Polysaccharide PPSV23 02/03/2019, TD (adult), 2 Lf tetanus tox oid, preservative free, adsorbed 08/11/2002 Tdap 01/11/2019,04/09/2010 Varicella 03/06/2010,02/18/1999 Family History Medical History Relation Name Comments Hypertension Father Breast cancer Father's Sister Asthma Mother Hypertension Mother Relation Name Status Comments Father Father's Sister Other Mother Social History Tobacco Use Types Packs/Day Years Used Date Smoking Tobacco: Never Passive Smoke Exposure: Never Smokeless Tobacco: Never Tobacco Cessation:Counseling Given: Not Answered Depression Answer Date Recorded Patient Health Questionnaire-9 Score 11 07/15/2024 Patient Health Questionnaire-9 Score 11 07/15/2024 Last PHQ-9: Questionnaire Data Not on file 1 09/15/2023 Housing Stability Answer Date Recorded What is your housing situation today? I have parish[facility] [place] 06/02/[address] you li ve. Do you have problems with any of the following? None of the above 06/02/2024 Food Insecurity Answer Date Recorded Within the past 12 months, y ou worried that your food would run out before you got money to buy more: Never True 06/02/2024 Within the past 12 months,th e food you bought just didn't last and you didn't have enough money to get more: Never True Transportation Answer Date Recorded In the past 12 months, has l ack of transportation kept you from medical appts, meetings, work or from getting things needed for daily living? No 06/02/2024 Utilities Answer Date Recorded In the past 12 months, has t he electric, gas, oil or water company threatened to shut off services in your home? No 06/02/2024 Depression Answer Date Recorded Patient Health Questionnaire-2 Score 4 07/15/2024 Internet Access Answer Date Recorded Internet Access Q1 Yes 06/02/2024 Internet Access Q2 Not on file 06/02/2024 Comments Unknown Sex and Gender Information Value Date Recorded Sex Assigned at Female 06/02/2022 10:15 AM EDT Legal Sex Female 10:15 AM EDT Gender Identity Female 06/02/2022 10:15 AM EDT Sexual Orientation Straight 06/02/2022 10 :15 AM EDT Last Filed Vital Signs Vital Sign Reading Time Taken Comments Blood Pressure 120/81 07/12/2024 2:11 PM EST Pulse 56 07/12/2024 1:55 PM EST Temperature 37.3 ??C (99.1 ??F) 07/12/2024 1:55 PM ES T Respiratory Rate 12 07/12/2024 1:55 PM EST Oxygen Saturation 99% 06/02/2024 10:53 AM EDT Inhaled Oxygen Concentration - - Weight 73.5 kg (162 lb) 07/12/2024 1:55 PM EST Height 166.8 cm (5' 5.67 ) 07/12/2024 1:55 PM ES T Body Mass Index 26.41 07/12/2024 1:55 PM EST Plan of Treatment Health Maintenance Due Date Last Done Comments Family Planning (PISQ) 2005 Pneumococcal Vaccine: Pediatrics (0 to 5 Years) and At-Risk Patients (6 to 49) Years) (2 of 2 - PCV) 02/04/2020 02/03/2019, 07/24/2015 Depression Monitoring (PHQ-9) 01/13/2025 07/15/2024, 07/15/2024 Alcohol/Substance Use Screening 06/02/2025 06/02/2024 SDOH Screening 06/02/2025 06/02/2024 Depression Screening 07/15/2025 07/15/2024, 07/15/20 24 Tobacco Screening 07/15/2025 07/15/2024 Pap Smear 01/28/2026 01/28/2023, 01/28/2023 Cervical Cancer Screening 01/29/2028 HPV/Cotest 01/29/2028 01/28/2023 DTaP/Tdap/Td Vaccines (8 - Td or Tdap) 01/11/2029 01/11/2019, 04/09/2010, 08/11/2002, Additional history exists Zoster Vaccines (1 of 2) 2040 RSV Patients and Patients Aged 60 years or older (1 - 1-dose 75+ series) 2065 HIB Vaccines Completed 04/23/1994, 03/03, 05/03/1991, Additional history exists IPV Vaccines Completed 04/23/1994, 03/03, 1990, Additional history exists Hepatitis B Vaccines Completed 11/01/1999, 03/21/1999, 02/18/1999 HPV Vaccines Completed 12/03/2012, 09/2006, 11/23/2006 HIV Screening Completed 06/14/2021 Hepatitis C Screening Completed 06/14/2021 COVID-19 Vaccine Completed 06/02/2024, , 08/23/2020 Influenza Vaccine Completed 06/02/2024, , 08/15/2019, Additional history exists Hepatitis A Vaccines Aged Out No long er eligible based on patient's age to complete this topic Meningococcal Vaccine Aged Out No ivonne [place] eligible based on patient's age to complete this topic RSV under 20 months Aged Out No longe r eligible based on patient's age to complete this topic Rotavirus Vaccines Aged Out No longer eligible based on patient's age to complete this topic Procedures Procedure Name Priority Date/Time Associated Diagnosis Comments COMPREHENSIVE METABOLIC PANEL Routine 07/13/2024 11:47 AM EST Fatigue, unspecified type TSH W/REFLEX TO FT4 Routine 07/13/2024 1 1:47 AM EST Fatigue, unspecified type Bradycardia CBC WITH AUTO DIFFERENTIAL Routine 07/13/2024 11:47 AM EST Fatigue, unspecified type PAP SMEAR Routine 01/28/2023 9:46 AM EDT HM PAP/HPV Routine 01/28/2023 ZZZ HISTORICAL HEPATITIS C ANTIBODY RFLX Routine 06/14/2021 12:41 PM EST ZZZ HISTORICAL HIV AB/AG Routine 06/14/2021 12:41 PM EST from Last 3 Months or Most Recently Relevant to Health Maintenance Results * TSH with Reflex to Free T4 (07/13/2024 11:47 AM EST) TSH reflex Free T4 0.99 0.32 - 4.0 uIU/mL [facility] Blood 07/13/2024 11:4 7 AM EST 07/13/2024 11:47 AM EST us Anh Solomon MD LAB BLOOD ORDERABLES Final Resul t [facility] [address] [place] [address] [phone] * (ABNORMAL) CBC auto differential (07/13/2024 11:47 AM EST) White Blood Count 7.9 4.8 - 10.8 X10*3/uL [facility] Red Blood Count 4.04(L) 4.20 - 5.50 X10*6/uL [facility] Hemoglobin 12.5 12.0 - 16.0 g/dl [facility] Hematocrit 37.6 37.0 - 47.0 % [facility] Mean Corpuscular Volume 93.1 80.0 - 98.0 fL [facility] Mean Corpuscular Hemoglobin 30.9 27.0 - 33.0 pg [facility] Mean Corpuscular HGB Conc 33.2 31.0 - 35.0 g/dl [facility] Red Cell Distribution Width 12.7 11.0 - 16.0 % [facility] Platelet Count 253 160 - 400 X10*3/uL [facility] Mean Platelet Volume 10.0 9.4 - 12.3 fL [facility] Neutrophils Percent Auto 61.4 45 - 73 % [facility] Imm Gran Pct Auto 0.4 0.0 - 0.4 % [facility] Lymphocytes Percent Auto 30.3 20 - 40 % [facility] Monocytes Percent Auto 5.8 2 - 11 % [facility] Eosinophils Percent Auto 1.5 0 - 4 % [facility] Basophils Percent Auto 0.6 0 - 2 % [facility] NRBC Pct Auto 0.0 0.0 - 0.2 /100WBC [facility] Neutrophils Absolute Auto 4.9 2.0 - 8.3 x10*3/uL [facility] Imm Gran Abs Auto 0.03 0.00 - 0.03 X10*3/uL [facility] Lymphocytes Absolute Auto 2.4 1.2 - 4.9 X10*3/uL [facility] Monocytes Absolute Auto 0.5 0.1 - 1.2 X10*3/uL [facility] Eosinophils Absolute Auto 0.1 0.0 - 0.4 X10*3/uL [facility] Basophils Absolute Auto 0.1 0.0 - 0.2 X10*3/uL [facility] NRBC Abs Auto 0.000 0.0 - 0.012 X10*3/uL [facility] Blood Venous blood specimen / Unknown 07/13/2024 11:47 AM EST 07/13/2024 11:47 AM EST us Anh Solomon MD LAB BLOOD ORDERABLES Final Resul t [facility] [address] [place] [phone] * (ABNORMAL) Comprehensive Metabolic Panel (07/13/2024 11:47 AM EST) Sodium 139 135 - 145 mmol/L [facility] Potassium 4.4 3.3 - 5.1 mmol/L [facility] Chloride 106 96 - 108 mmol/L [facility] Carbon Dioxide 28 22 - 29 mmol/L [facility] Anion Gap 9(L) 12 - 20 [facility] Urea Nitrogen (BUN) 15 9 - 16 mg/dL [facility] Creatinine, Serum 0.70 0.5 - 1.4 mg/dL [facility] Estimated Glomerular Filt Rate >60 [facility] Comment:Chronic Kidney Disea se: Estimated GFR < 60 mL/min/1.80c9Tbofrt Kidney Disease: Estimated GFR < 15 mL/min/1.73m2 Glucose 81 60 - 115 mg/dL [facility] Calcium 10.1 8.4 - 10.2 mg/dL [facility] Bilirubin, Total 0.4 0.0 - 1.0 mg/dL [facility] Aspartate Amino Transferase 36(H) 5 - 31 U/L [facility] Alanine Aminotransferase 32(H) 0 - 31 U/L [facility] Total Protein 7.5 6.5 - 8.0 g/dL [facility] Albumin Level 4.2 3.5 - 5.0 g/dL [facility] Alkaline Phosphatase 50 39 - 117 U/L [facility] Blood Venous blood specimen / Unknown 07/13/2024 11:47 AM EST 07/13/2024 11:47 AM EST us Anh Solomon MD LAB BLOOD ORDERABLES Final Resul t Performing Organization Address City/State/[facility] Co de Phone Number [facility] [address] [place] [phone] * Pap Smear (01/28/2023 9:46 AM EDT) 01/28/2023 9:46 AM EDT 01/29/2023 8:45 AM EDT Narrative [facility] - 02/14/2023 3:25 PM EDT ----- ------- Name: Jewell Ramires ? Age/Sex: 32/F ? : 1990 Unit#: [id number] ?? Attend Dr: Meghan Enciso CNM ?Re01/28/23 ?Status: DEP REF ? Location: HO.LNP ?Disch: ? ----- ------- SPEC : [id number] ? RECD: 01/29/23 ? STATUS: ??SOUT ? REQ NUM: [id number] ? MARCELLE: 01/28/23 ? SUBM DR: Meghan Enciso CNM ? ENTERED: ??01/29/23 ?SP TYPE: Pap Smr ?OTHR DR: Anh Solomon MD ? ORDERED: ??Pap Smear ? Interpretation ?? Satisfactory for evaluation. ?? Negative for intraepithelial lesion or malignancy. ? HPV mRNA E6/E7: ?NOT DETECTED ? This assay detects E6/E7 viral messenger RNA (mRNA) from 14 high-risk HPV types (16, 18, ?? 31, 33, 35, 39, 45, 51, 52, 56, 58, 59, 66, 68) ? HPV testing performed by [facility], [place], [place]. ??See reference laboratory ?? portion of the EMR for entire report. ?Clinical Information LMP: Previous PAP test: 07/01/18, Abnormal Other surgery: Colpo 02/06/06 ASCUS Other history: 2014 ASCUS, 2007 LGSIL ? Material Received ?? ThinPrep-Cervical Copies To: ?? Meghan Enciso CNM ?? [address] [facility] ?? [place] [address] ?? [phone] ?? Anh Solomon MD ?? [address] ?? [place] ?? ----- ------- Signed (signature on file) Lenora Ye Galileo 02/14/23 1525 ? ----- ------- ? END OF REPORT ? us [facility] External Provider LAB CYT OLOGY ORDERABLES Final Result [facility] [address] [place] [address] [phone] * Hm Pap Smear (01/28/2023) Pathologist [facility] Pap Negative for intraephithelial lesion or malignancy Negative for intraephithelial lesion or malignancy, Other HPV Undetected Leslie Unassigned Pcp HEALTH MAINTENANCE Final Result * HEPATITIS C ANTIBODY RFLX (06/14/2021 12:41 PM EST) [facility] Hepatitis C Antibody Nonreactive Nonreactive [facility] Comment: Antibodies to HCV not detected; does not exclude early acute HCV infection. 06/14/2021 12:4 1 PM EST Anh Solomon MD HISTORICAL/NON ORDERABLE LABS Fi nal Result Performing Organization Address [facility] Phone Number [facility] [address] * HIV AB/AG (06/14/2021 12:41 PM EST) Pathologist [facility] HIV AB/AG Nonreactive Nonreactive [facility] Comment: HIV-1 p24 Ag and/or HIV-1/HIV-2 Ab not detected. ?? A test result that is nonreactive does not exclude the possibility of exposure to or infection with HIV-1 and/or HIV-2. Nonreactive results in this assay for individuals with prior exposure to HIV-1 and/or HIV-2 may be due to antigen and antibody levels that are below the limit of detection of this assay. ?? The [employer] HIV Ag/Ab Combo assay result and supplemental assay results should be interpreted in conjunction with the patient's clinical presentation, history and other laboratory results. ??If the results are inconsistent with clinical evidence, additional testing is suggested to confirm the result. Hepatitis B Surface Antigen Negative Negative [facility] 06/14/2021 12:4 1 PM EST Anh Solomon MD HISTORICAL/NON ORDERABLE LABS Fi nal Result Performing Organization Address [facility] de Phone Number [facility] [address] from Last 3 Months or Most Recently Relevant to Health Maintenance Insurance [employer] Care Teams Executive Pastry Chef Relationship Specialty Start Date End Date Anh Solomon MD [address] [place] [phone] PCP - General Family Medicine 08/03/18
--- OUTSIDE RECORDS SUMMARY | 2024-09-14 11:27 | XMS_ITS | Encounter Summary ---
Author Organization [employer] Address [address] [facility] [address] [place] [address] Care Team Providers Care Manager Payment Name Role Phone Anh Solomon MD Primary Care Provider [phone] Reason for Visit * Reason Onset Date Comments october recall 08/25/2024 Encounter Details Date Type Department Care Team ([facility] st Contact Info) Description 08/25/2024 Telephone [facility] MEDICINE [address] [place] [address] Pilar Parada [place] october recall Social History Tobacco Use Types Packs/Day Years Used Date Smoking Tobacco: Never Passive Smoke Exposure: Never Smokeless Tobacco: Never Depression Answer Date Recorded Patient Health Questionnaire-9 Score 11 07/15/2024 Patient Health Questionnaire-9 Score 11 07/15/2024 Last PHQ-9: Questionnaire Data Not on file 1 09/15/2023 Housing Stability Answer Date Recorded What is your housing situation today? I have parish palmer 06/02/[address] you [...] encounter Miscellaneous Notes * Telephone Encounter - Pilar Parada MA - 08/25/2024 1:55 PM EST .[place] called the patient to schedule a visit and no answer. Message left to call back and schedule. (October recall depression and asthma. ) documented in this encounter Plan of Treatment Not on file documented as of this encounter Visit Diagnoses Not on filedocumented in this encounter Additional Health Concerns Assessment Noted Time PHQ-9 Depression Total Score: 11 024 11:09 AM EST documented as of this encounter Care Teams Manager Payment Relationship Specialty Start Date End Date Anh Solomon MD [address] [place] [address] PCP - General Family Medicine 08/03/18 documented as of this encounter
== END 2024-09-14 10:19 | disposition home or self-care (01) ==
LOC: HO.HWSM 09:51
PROVIDERS: PCP Family Medicine; Visit Provider Advanced Practice Midwife
DX: B37.31 Acute candidiasis of vulva and vagina (principal); Z87.42 Personal history of other diseases of the female genital tract; Z98.51 Tubal ligation status
CPT/HCPCS: 99213

== ENCOUNTER 2025-03-27 14:15 | Outpatient (AMB) | payer OTHER, MEDICAID, SELFPAY ==
[2025-03-27 12:06] VITALS: BMI 30.6
--- NOTE | 2025-03-27 12:06 | A.OFFVIS_ITS ---
VS Expanded 03/27/25 12:06 Height 5 ft 3 in Weight 173 lb BMI 30.6 Body Fat % 37.6 Fat Free Mass 108 Visceral Fat Rating 13 Body Water % 42.9 Muscle Mass/Score 101.4 Basal Metabolic Rate/Score 1,427 Intake Visit Reasons: TV PO LSG 09/04/22 Allergies No Known Allergies Allergy (Verified 09/14/24 09:52) HPI Comments Details: This?a?34?yo female who is s/p LSG without hiatal hernia repair on?09/04/22, by Dr Smith. Presents for 2 year 6 month month month post op visit. Weight today is 173 pounds, with a BMI of 30.6.? There has been a 81.8 pound weight loss,(initial weight 254.8 pounds) since starting the program on 04/16/22 reflecting a 32% total body weight loss and a weight loss of 43.5 pounds since surgery (operative weight 216.5 pounds) reflecting a 20% TBWL since surgery.? No complaints of nausea, emesis, abdominal pain or reflux. Reports infrequent but normal bowel movements every 2-3 days and uses Miralax regularly. States she has not been consistent with her meal plan and she has been out and eating out more. She additionally states that she has not been exercising very much. She has noticed increased hair loss, she has been intermittently taking her MVI or celebrate shake, but not all the time. States her goal is to achieve a weight goal of 150-160. Up 15 pounds since last vist about 1 year ago. Not following a meal plan or exercise plan, snacking at night. Talking with therapist Previous meal plan includes: no plan Exercise routine includes: none considering joining . Any post op complications: none BHUMIKA: never DM: never HTN: never Hyperlipidemia: never GERD:?0-5 scale ??0 = no symptoms ??1 = symptoms noticeable but not bothersome 2 =symptoms bothersome but not daily ? 3 = symptoms bothersome and daily 4 = symptoms affect daily activities 5 = symptoms are incapacitating, unable to do daily activities ? How bad is the heartburn: 0 ? Heartburn while lying down: 0 ? Heartburn when standing up: 0 ? Heartburn after meals: 0 ? Does heartburn change your diet: 0 ? Does heartburn wake you up from sleep: 0 ? Do you have difficulty swallowin ? Do you have pain with swallowin ? If you take medicine for your reflux, does this affect your daily life: 0 Satisfaction with present condition - satisfied or not satisfied: dissatisfied [facility] Medical History BMI 39.0-39.9,adult Binge-eating disorder, mild Asthma GERD (gastroesophageal reflux disease) Morbid obesity Surgical History History of epidural anesthesia History of tubal ligation Social History Are you a primary manager critical care unit to a significant other at home: No Do you presently have visiting nurse or other home services: No Patient Tobacco Use Status: Never used Tobacco Second Hand Smoke Exposure: No service: No Current occupational status: employed Female Reproductive History Menstrual Age of Menarche: 11 Telehealth Telehealth Telehealth Platform: Telephone Location of provider rendering services: practice address Location of patient: address on file Patient Identification confirmed using: Name, : Yes Telehealth method: voice only Patient verbally consented to treatment: Yes Patient verbally consented to billing insurance company: Yes Patient informed of any privacy concerns related to visit: Yes Minutes spent on Phone/Video with Pt.: 15 Assessment & Plan Assessment & Plan (1) S/P laparoscopic sleeve gastrectomy: Code(s): Z98.84 - Bariatric surgery status Category: Surgical Plan: Patient is going to follow information on the right BMI paulino. She was given this information by text message. She will fill out and follow the meal plan. Additionally, discussed the importance of exercise. She certainly may start on her treadmill at home, but joining a gym is also a reasonable option with a goal of burning 300 calories per day, 7 days a week. We will check postop labs as she has not been seen in the office in over a year. We will have her return to the office as scheduled. Encouraged to text or call with any questions or concerns. Orders: Orders Insulin Today E51.9 - Thiamine deficiency, unspecified, Z98.84 - Bariatric surgery status Hemoglobin A1c Today E51.9 - Thiamine deficiency, unspecified, Z98.84 - Bariatric surgery status Complete Blood Count Auto Diff Today E51.9 - Thiamine deficiency, unspecified, Z98.84 - Bariatric surgery status Lipid Panel Today E51.9 - Thiamine deficiency, unspecified, Z98.84 - Bariatric surgery status IRON PROFILE Today E51.9 - Thiamine deficiency, unspecified, Z98.84 - Bariatric surgery status Vitamin B12 and Folate Today E51.9 - Thiamine deficiency, unspecified, Z98.84 - Bariatric surgery status Zinc Today E51.9 - Thiamine deficiency, unspecified, Z98.84 - Bariatric surgery status Vitamin A Today E51.9 - Thiamine deficiency, unspecified, Z98.84 - Bariatric surgery status TSH reflex Free T4 Today E51.9 - Thiamine deficiency, unspecified, Z98.84 - Bariatric surgery status Ferritin Today E51.9 - Thiamine deficiency, unspecified, Z98.84 - Bariatric surgery status Comprehensive Met. Panel Today E51.9 - Thiamine deficiency, unspecified, Z98.84 - Bariatric surgery status C Reactive Protein Today E51.9 - Thiamine deficiency, unspecified, Z98.84 - Bariatric surgery status Vitamin B1 Today E51.9 - Thiamine deficiency, unspecified, Z98.84 - Bariatric surgery status Vitamin D 25-OH Total Today E51.9 - Thiamine deficiency, unspecified, Z98.84 - Bariatric surgery status
--- OUTSIDE RECORDS SUMMARY | 2025-03-27 16:07 | XMS_ITS | Clinical Summary ---
Author Organization [employer] Address [address] [facility] [address] [place] [address] Care Team Providers Care Key Account Coordinator Name Role Phone Anh Solomon MD Primary Care Provider [phone] Allergies No known active allergies Medications * [...] on 06/02/24 - patient was seen by [facility] on 06/02/24 and was arranged for off-site [...] on 06/02/24 - patient was seen by [facility] on 06/02/24 and will be arranged for counseling service - prescribed escitalopram 5 mg daily and patient will start medication after her asthma symptoms improve - will schedule for short-term follow-up Assessment & Plan (06/03/2024 11:46 AM EDT): - PHQ9 score 15 and GAD7 score 14 - patient is seen by [facility] today and will be arranged for counseling [...] (12/10/2022 3:08 PM EDT): - following with dry janitor - last PAP in Jun 2018, due this year - evaluate with pelvic US Immunizations Immunization Administration Dates Next Due DTaP 04/23/1994, 2,05/03/1991,12/01,1990 HPV, Quadrivalent 12/03/2012,02/01/2007,11/24/19 07 Hep B, Adolescent or Pediatric 11/01/1999,1998,02/18/1999 Hib (HbOC) 04/23/1994, 2,05/03/1991,12/01 Influenza injectable quadriv alent IIV4 with preservative 09/28/2017,05/30/2016,05/03/2015 Influenza injectable quadriv alent preservative free 05/09/2020,08/15/2019,10/12/2018 Influenza, IIV3, injectable 04/14/2012 Influenza, seasonal, injecta ble, preservative free 06/02/2024 MMR 11/05/1994,06/03/1991 OPV, Trivalent 04/23/1994, 2,1990,09/03 Pfizer Covid-19 Vaccine 12+ 06/02/2024 [...] 56 07/12/2024 1:55 PM EST Temperature 37.3 C (99.1 F) 07/12/2024 1:55 PM EST Respiratory Rate 12 07/12/2024 1:55 PM EST Oxygen Saturation 99% 06/02/2024 10:53 AM EDT Inhaled Oxygen Concentration - - Weight 73.5 kg (162 lb) 07/12/2024 1:55 PM EST Height 166.8 cm (5' 5.67 ) 07/12/2024 1:55 PM ES T Body Mass Index 26.41 07/12/2024 1:55 PM EST Plan of Treatment Health Maintenance Due Date Last Done Comments Disability Screening 1990 Family Planning (PISQ) 2005 Pneumococcal Vaccine: Pediatrics (0 to 5 Years) and At-Risk Patients (6 to 49) Years (2 of 2 - PCV) 02/04/2020 02/03/2019, 07/24/2015 Depression Monitoring 01/13/2025 07/15/2024, 024 Influenza Vaccine (#1) 2025 , 05/09/2020, 08/15/2019, Additional history exists Alcohol/Substance Use Screening 06/02/2025 06/02/2024 SDOH Screening 06/02/2025 06/02/2024 Tobacco Screening 07/15/2025 07/15/2024 Pap Smear 01/28/2026 [...] 06/14/2021 COVID-19 Vaccine Completed 06/02/2024, , 08/23/2020 Hepatitis A Vaccines Aged Out No long er eligible based on patient's age to complete this topic Meningococcal B Vaccine Aged Out No l onger eligible based on patient's age to complete [...] Procedure Name Priority Date/Time Associated Diagnosis Comments PAP SMEAR Routine 01/28/2023 9:46 AM EDT HM PAP/HPV Routine 01/28/2023 ZZZ HISTORICAL HEPATITIS C ANTIBODY RFLX Routine 06/14/2021 12:41 PM EST [facility] HISTORICAL HIV AB/AG Routine 06/14/2021 12:41 PM EST from Last 3 Months or Most Recently Relevant to Health Maintenance Results * Pap Smear (01/28/2023 9:46 AM EDT) 01/28/2023 9:46 AM EDT 01/29/2023 8:45 AM EDT [facility] - 02/14/2023 3:25 PM EDT ----- ------- Name: Jewell Ramires Age/Sex: 32/F : 1990 Unit#: [id number] Attend Dr: Meghan Enciso CNM Re01/28/23 Status: JANEE REF Location: [facility] Disch: ----- ------- SPEC : [id number] RECD: 01/29/2345 STATUS: ELVI BARRAGAN NUM: [id number] MARCELLE: 01/28/[address] [facility] DR: Meghan Enciso CNM ENTERED: 01/29/23-1025 SP TYPE: Pap Smr OTHR DR: Anh Solomon MD ORDERED: Pap Smear Interpretation Satisfactory for evaluation. Negative for intraepithelial lesion or malignancy. HPV mRNA E6/E7: NOT DETECTED This assay detects E6/E7 viral messenger RNA (mRNA) from 14 high-risk HPV types (16, 18, 31, 33, 35, 39, 45, 51, 52, 56, 58, 59, 66, 68) HPV testing performed by [employer], [place], [place]. See reference laboratory portion of the EMR for entire report. Clinical Information LMP: Previous PAP test: 07/01/18, Abnormal Other surgery: Colpo 02/06/06 ASCUS Other history: 2013 ASCUS, 2006 LGSIL Material Received ThinPrep-Cervical Copies To: Meghan Enciso [address] [place] [address] Anh Solomon MD [address] [place], [place] [phone] ----- ------- Signed (signature on file) Lenora Ye Galileo 02/14/23 1525 ----- ------- END OF REPORT [facility] External Provider LAB CYT OLVIVI ORDERABLES Final Result [facility] [address] [place] [address] [phone] * Hm Pap Smear (01/28/2023) Pap Negative for intraephithelial lesion or malignancy Negative for intraephithelial lesion or malignancy, Other HPV Undetected [facility] Unassigned Pcp HEALTH MAINTENANCE Final Result * HEPATITIS C ANTIBODY RFLX (06/14/2021 12:41 PM EST) Hepatitis C Antibody Nonreactive Nonreactive [facility] Comment: Antibodies to HCV not detected; does not exclude early acute HCV infection. 06/14/2021 12:4 1 PM EST Anh Solomon MD HISTORICAL/NON ORDERABLE LABS Fi nal Result Performing Organization Address [facility] Co de Phone Number [facility] [address] * HIV AB/AG (06/14/2021 12:41 PM EST) Pathologist [facility] HIV AB/AG Nonreactive Nonreactive [facility] Comment: HIV-1 p24 Ag and/or HIV-1/HIV-2 Ab not detected. A test result that is nonreactive does not exclude the possibility of exposure to or infection with HIV-1 and/or HIV-2. Nonreactive results in this assay for individuals with prior exposure to HIV-1 and/or HIV-2 may be due to antigen and antibody levels that are below the limit of detection of this assay. The [employer]inder HIV Ag/Ab Combo assay result and supplemental assay results should be interpreted in conjunction with the patient's clinical presentation, history and other laboratory results. If the results are inconsistent with clinical evidence, additional testing is suggested to confirm the result. Hepatitis B Surface Antigen Negative Negative [facility] 06/14/2021 12:4 1 PM EST Anh Solomon MD HISTORICAL/NON ORDERABLE LABS Fi nal Result Performing Organization Address [facility] Co de Phone Number [facility] [address] from Last 3 Months or Most Recently Relevant to Health Maintenance Insurance [facility] [employer] Care Teams Key Account Coordinator Relationship Specialty Start Date End Date Anh Solomon MD [address] [place] [phone] PCP - General Family Medicine 08/03/18
--- OUTSIDE RECORDS SUMMARY | 2025-03-27 16:07 | XMS_ITS | Encounter Summary ---
Author Organization [employer] Address [address] [facility] [address] [place] [address] Care Team Providers Care Pre School Teacher Name Role Phone Anh Solomon MD Primary Care Provider [phone] Reason for Visit * Reason Onset Date Comments Appointment Request 04/27/2024 Encounter Details Date Type Department Care Team ([facility] st Contact Info) Description 04/27/2024 Telephone [facility] [address] [place], [place] [phone] Anh Solomon MD [address] [place], [place] [phone] Appointment Request Social History Tobacco Use Types [...] on filedocumented in this encounter Care Teams Pre School Teacher Relationship Specialty Start Date End Date Anh Solomon MD [address] [place] [phone] PCP - General Family Medicine 08/03/18 documented as of this encounter
== END 2025-03-27 14:41 | disposition home or self-care (01) ==
LOC: HO.HBS 14:27
PROVIDERS: PCP Family Medicine; Visit Provider Physician Assistant Surgical
DX: E66.9 Obesity, unspecified (principal); Z68.30 Body mass index [BMI] 30.0-30.9, adult; Z90.3 Acquired absence of stomach [part of]; Z98.84 Bariatric surgery status
CPT/HCPCS: 98967

== ENCOUNTER → 2025-03-27 14:15 | Outpatient (BNVA) | payer OTHER, MEDICAID, SELFPAY | PROVIDERS: PCP Family Medicine; Visit Provider Physician Assistant Surgical | DX: Z98.84 Bariatric surgery status (principal) | CPT/HCPCS: 98967 ==

== ENCOUNTER 2025-04-14 09:51 | Outpatient (REF) | payer OTHER, MEDICAID, SELFPAY ==
[2025-04-14 10:21] LABS: MANUAL DIFF FLAG NO
[2025-04-14 11:00] LABS: Hematocrit 37.4 % (37.0-47.0); Hemoglobin 12.6 g/dl (12.0-16.0); Imm Gran Abs Auto 0.01 X10*3/uL (0.00-0.03); Imm Gran Pct Auto 0.2 % (0.0-0.4); Lymphocytes Absolute Auto 2.3 X10*3/uL (1.2-4.9); Mean Corpuscular HGB Conc 33.7 g/dl (31.0-35.0); Mean Corpuscular Hemoglobin 30.5 pg (27.0-33.0); Mean Corpuscular Volume 90.6 fL (80.0-98.0); NRBC Abs Auto 0.000 X10*3/uL (0.0-0.012); NRBC Pct Auto 0.0 /100WBC (0.0-0.2); Platelet Count 251 X10*3/uL (160-400); Red Blood Count 4.13 X10*6/uL (4.20-5.50); White Blood Count 5.6 X10*3/uL (4.8-10.8)
--- OUTSIDE RECORDS SUMMARY | 2025-04-14 11:12 | XMS_ITS | Encounter Summary ---
Author Organization [employer] Address [address] [facility] [address] [place] [address] Care Team Providers Care Export Packer Name Role Phone Anh Solomon MD Primary Care Provider [phone] Encounter Details Date Type Department Care Team (Late st Contact Info) Description 04/14/2025 Orders Only GENERIC EXTERNAL DATA DEPARTMENT Provider, Generic External Data Social History Tobacco Use Types Packs/Day Years [...] AM EDT documented as of this encounter Plan of Treatment Upcoming Encounters Date Type Department Care Team (Late st Contact Info) Description 06/06/2025 1:45 PM EST Office Visit [facility] [address] [place] [address] Anh Solomon MD [address] [place], [place] [phone] documented as of this encounter Procedures Procedure Name Priority Date/Time Associated Diagnosis Comments CBC WITH AUTO DIFFERENTIAL Routine 04/14/2025 10:19 AM EDT documented in this encounter Results * (ABNORMAL) CBC auto differential (04/14/2025 10:19 AM EDT) White Blood Count 5.6 4.8 - 10.8 X10*3/uL [facility] Red Blood Count 4.13(L) 4.20 - 5.50 X10*6/uL [facility] Hemoglobin 12.6 12.0 - 16.0 g/dl [facility] Hematocrit 37.4 37.0 - 47.0 % [facility] Mean Corpuscular Volume 90.6 80.0 - 98.0 fL [facility] Mean Corpuscular Hemoglobin 30.5 27.0 - 33.0 pg [facility] Mean Corpuscular HGB Conc 33.7 31.0 - 35.0 g/dl [facility] Red Cell Distribution Width 12.4 11.0 - 16.0 % [facility] Platelet Count 251 160 - 400 X10*3/uL [facility] Mean Platelet Volume 10.5 9.4 - 12.3 fL [facility] Neutrophils Percent Auto 48.1 45 - 73 % [facility] Imm Gran Pct Auto 0.2 0.0 - 0.4 % [facility] Lymphocytes Percent Auto 40.8(H) 20 - 40 % [facility] Monocytes Percent Auto 6.4 2 - 11 % [facility] Eosinophils Percent Auto 3.8 0 - 4 % [facility] Basophils Percent Auto 0.7 0 - 2 % [facility] NRBC Pct Auto 0.0 0.0 - 0.2 /100WBC [facility] Neutrophils Absolute Auto 2.7 2.0 - 8.3 x10*3/uL [facility] Imm Gran Abs Auto 0.01 0.00 - 0.03 X10*3/uL [facility] Lymphocytes Absolute Auto 2.3 1.2 - 4.9 X10*3/uL [facility] Monocytes Absolute Auto 0.4 0.1 - 1.2 X10*3/uL [facility] Eosinophils Absolute Auto 0.2 0.0 - 0.4 X10*3/uL [facility] Basophils Absolute Auto 0.0 0.0 - 0.2 X10*3/uL [facility] NRBC Abs Auto 0.000 0.0 - 0.012 X10*3/uL [facility] 04/14/2025 10:1 9 AM EDT 04/14/2025 10:19 AM EDT us Generic External Data Provider LAB BLOOD ORDERAB LES Final Result Performing Organization Address City/State/[facility] Co de Phone Number [facility] [address] [place] [phone] documented in this encounter Visit Diagnoses Not on filedocumented in this encounter Additional Health Concerns Assessment Noted Time PHQ-9 Depression Total Score: 11 07/15/2 024 11:09 AM EST documented as of this encounter Care Teams Export Packer Relationship Specialty Start Date End Date Anh Solomon MD [address] [place] [phone] PCP - General Family Medicine 08/03/18 documented as of this encounter
--- OUTSIDE RECORDS SUMMARY | 2025-04-14 11:12 | XMS_ITS | Clinical Summary ---
Author Organization [employer] Address [address] [facility] 7[address] [place] [address] Care Team Providers Care Automotive Drivability Technician Name Role Phone Anh Solomon MD Primary [...] on 06/02/24 - patient was seen by [facility] on 06/02/24 and was arranged for off-site [...] on 06/02/24 - patient was seen by [facility] on 06/02/24 and will be arranged for counseling service - prescribed escitalopram 5 mg daily and patient will start medication after her asthma symptoms improve - will schedule for short-term follow-up Assessment & Plan (06/03/2024 11:46 AM EDT): - PHQ9 score 15 and GAD7 score 14 - patient is seen by [facility] today and will be arranged for counseling [...] (12/10/2022 3:08 PM EDT): - 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 - last PAP in Jun 2018, due this year - evaluate with pelvic US Encounters Date Type Department Care Team Description 04/14/2025 Orders Only GENERIC EXTERNAL DATA DEPARTMENT Provider, Generic External Data from Last 3 Months Immunizations Immunization Administration Dates Next Due DTaP [...] 07/12/2024 1:55 PM EST Plan of Treatment Upcoming Encounters Date Type Department Care Team (Late st Contact Info) Description 06/06/2025 1:45 PM EST Office Visit [facility] [address] [place] [phone] Anh Solomon MD [address] [place], [place] [phone] Health Maintenance Due Date Last Done Comments [...] 11/01/1999, 03/21/1999, 02/18/1999 HPV Vaccines Completed 12/03/2012, 0709/2006, 11/23/2006 HIV Screening Completed 06/14/2021 Hepatitis C [...] AUTO DIFFERENTIAL Routine 04/14/2025 10:19 AM EDT PAP SMEAR Routine 01/28/2023 9:46 AM EDT HM PAP/HPV Routine 01/28/2023 [facility] HISTORICAL HEPATITIS C ANTIBODY RFLX Routine 06/14/2021 12:41 PM EST [facility] HISTORICAL HIV AB/AG Routine 06/14/2021 12:41 PM EST from Last 3 Months or Most Recently Relevant to Health Maintenance Results * (ABNORMAL) CBC auto differential (04/14/2025 10:19 AM EDT) White Blood Count 5.6 4.8 - 10.8 X10*3/uL [facility] Red Blood Count 4.13(L) 4.20 - 5.50 X10*6/uL [facility] Hemoglobin 12.6 12.0 - 16.0 g/dl [facility] Hematocrit 37.4 37.0 - 47.0 % [facility] Mean Corpuscular Volume 90.6 80.0 - 98.0 fL [facility] Mean Corpuscular Hemoglobin 30.5 27.0 - 33.0 pg [facility] Mean Corpuscular HGB Conc 33.7 31.0 - 35.0 g/dl [facility] Red Cell Distribution Width 12.4 11.0 - 16.0 % [facility] Platelet Count 251 160 - 400 X10*3/uL [facility] Mean Platelet Volume 10.5 9.4 - 12.3 fL [facility] Neutrophils Percent Auto 48.1 45 - 73 % [facility] Imm Gran Pct Auto 0.2 0.0 - 0.4 % [facility] Lymphocytes Percent Auto 40.8(H) 20 - 40 % [facility] Monocytes Percent Auto 6.4 2 - 11 % [facility] Eosinophils Percent Auto 3.8 0 - 4 % [facility] Basophils Percent Auto 0.7 0 - 2 % [facility] NRBC Pct Auto 0.0 0.0 - 0.2 /100WBC [facility] Neutrophils Absolute Auto 2.7 2.0 - 8.3 x10*3/uL [facility] Imm Gran Abs Auto 0.01 0.00 - 0.03 X10*3/uL [facility] Lymphocytes Absolute Auto 2.3 1.2 - 4.9 X10*3/uL [facility] Monocytes Absolute Auto 0.4 0.1 - 1.2 X10*3/uL [facility] Eosinophils Absolute Auto 0.2 0.0 - 0.4 X10*3/uL [facility] Basophils Absolute Auto 0.0 0.0 - 0.2 X10*3/uL [facility] NRBC Abs Auto 0.000 0.0 - 0.012 X10*3/uL [facility] 04/14/2025 10:1 9 AM EDT 04/14/2025 10:19 AM EDT us Generic External Data Provider LAB BLOOD ORDERAB LES Final Result [facility] [address] [place] [phone] * Pap Smear (01/28/2023 9:46 AM EDT) 01/28/2023 9:46 AM EDT 01/29/2023 8:45 AM EDT Narrative [facility] - 02/14/2023 3:25 PM EDT ----- ------- Name: Jewell Ramires Age/Sex: 32/F : 1990 Unit#: [id number] Attend Dr: Meghan Enciso [facility] Re01/28/23 Status: DEP REF Location: [facility] Disch: ----- ------- SPEC : [id number] RECD: 01/29/23-45 STATUS: KENDALKelvin YUNG NUM: [id number] MARCELLE: 01/28/23-46 [facility] DR: Meghan Enciso [facility] ENTERED: 01/29/23-1025 SP TYPE: Pap Smr OTHR DR: Anh Solomon MD ORDERED: Pap Smear Interpretation Satisfactory for evaluation. Negative for intraepithelial lesion or malignancy. HPV mRNA E6/E7: NOT DETECTED This assay detects E6/E7 viral messenger RNA (mRNA) from 14 high-risk HPV types (16, 18, 31, 33, 35, 39, 45, 51, 52, 56, 58, 59, 66, 68) HPV testing performed by [facility], [place], [place]. See reference laboratory portion of the EMR for entire report. Clinical Information LMP: Previous PAP test: 07/01/18, Abnormal Other surgery: Colpo 02/06/06 ASCUS Other history: 2014 ASCUS, 2006 LGSIL Material Received ThinPrep-Cervical Copies To: Meghan Enciso [address] [address] Anh Solomon MD [address] [place] [phone] ----- ------- Signed (signature on file) Lenora Gurrola 02/14/23 1525 ----- ------- END OF REPORT [facility] External Provider LAB [facility] Final Result Performing Organization Address [facility]/ZIP Co de Phone Number [facility] [address] [place] [address] [phone] * Pap Smear (01/28/2023) [facility] Pap Negative for intraephithelial lesion or malignancy Negative for intraephithelial lesion or malignancy, Other HPV Undetected [facility] Unassigned Pcp HEALTH MAINTENANCE Final Result * HEPATITIS C ANTIBODY RFLX (06/14/2021 12:41 PM EST) [facility] Hepatitis C Antibody Nonreactive Nonreactive [facility] Comment: Antibodies to HCV not detected; does not exclude early acute HCV infection. 06/14/2021 12:4 1 PM EST Anh Solomon MD HISTORICAL/NON ORDERABLE LABS Fi nal Result Performing Organization Address [facility]/ZIP Co de Phone Number [facility] [address] [place] [address], * HIV AB/AG (06/14/2021 12:41 PM EST) [facility] HIV AB/AG Nonreactive Nonreactive [facility] Comment: HIV-1 p24 Ag and/or [...] limit of detection of this assay. The [employer] Fiber Optic Technician HIV Ag/Ab Combo assay result and supplemental assay results should be interpreted in conjunction with the patient's clinical presentation, history and other laboratory results. If the results are inconsistent with clinical evidence, additional testing is suggested to confirm the result. Hepatitis B Surface Antigen Negative Negative [facility] 06/14/2021 12:4 1 PM EST us Anh Solomon MD HISTORICAL/NON ORDERABLE LABS Fi nal Result [facility] [address] from Last 3 Months or Most Recently Relevant to Health Maintenance Insurance [facility] [employer] Care Teams Automotive Drivability Technician Relationship Specialty Start Date End Date Anh Solomon MD [address] [place] [phone] PCP - General Family Medicine 08/03/18
--- OUTSIDE RECORDS SUMMARY | 2025-04-14 11:12 | XMS_ITS | Encounter Summary ---
Author Organization [employer] Address [address] [facility] [address] [place] [address] Care Team Providers Care Software Applications Engineer Name Role Phone Anh Solomon MD Primary Care Provider [phone] Reason for Visit * Reason Onset Date Comments Appointment Request 04/27/2024 Encounter Details Date Type Department Care Team ([facility] st Contact Info) Description 04/27/2024 Telephone [facility] [address] [place], [place] [phone] Anh Solomon MD [address] [place], [place] [phone] Appointment Request Social History Tobacco Use Types [...] documented in this encounter Plan of Treatment Upcoming Encounters Date Type Department Care Team (Late st Contact Info) Description 06/06/2025 1:45 PM EST Office Visit [facility] [address] [place] [phone] Anh Solomon MD [address] [place] [phone] documented as of this encounter Visit Diagnoses Not on filedocumented in this encounter Care Teams Software Applications Engineer Relationship Specialty Start Date End Date Anh Solomon MD [address] [place] [phone] PCP - General Family Medicine 08/03/18 documented as of this encounter
[2025-04-14 11:16] LABS: Hemoglobin A1C 106.1993 umol/L; Total Hemoglobin (HGBA1C) 3279.5682 umol/L
[2025-04-14 12:26] LABS: Alanine Aminotransferase 19 U/L (0-31); Albumin Level 4.6 g/dL (3.5-5.0); Alkaline Phosphatase 46 U/L (39-117); Anion Gap 11 (12-20); Aspartate Amino Transferase 34 U/L (5-31); Blood Urea Nitrogen 17 mg/dL (9-16); Calcium 9.3 mg/dL (8.4-10.2); Carbon Dioxide 29 mmol/L (22-29); Chloride 105 mmol/L (96-108); Cholesterol 198 mg/dL (<200); Estimated Glomerular Filt Rate > 60; HDL Cholesterol 75 mg/dL (>40); Iron 91 mcg/dL (30-160); Percent Iron Saturation 25 % (15-50); Potassium 3.8 mmol/L (3.3-5.1); Sodium 141 mmol/L (135-145); Total Iron Binding Capacity 364 mcg/dL (228-428); Total Protein 7.7 g/dL (6.5-8.0); Triglycerides 81 mg/dL (<150); Unsaturated Iron Binding 273 ug/dL
[2025-04-14 12:30] LABS: Folate 12.8 ng/mL (> or = 4.0); Vitamin B12 811 pg/mL (200-900)
[2025-04-14 12:50] LABS: Ferritin 20 ng/mL (10-122)
== END 2025-04-14 09:52 | disposition home or self-care (01) ==
LOC: HO.LAB 09:51
PROVIDERS: PCP Family Medicine; Visit Provider Physician Assistant Surgical
DX: Z13.6 Encounter for screening for cardiovascular disorders (principal); Z13.1 Encounter for screening for diabetes mellitus; Z98.84 Bariatric surgery status
CPT/HCPCS: 36415; 80053; 80061; 82306; 82607; 82728; 82746; 83036; 83540; 84425; 84443; 84590; 84630; 85025; 86140

== ENCOUNTER 2025-04-25 08:24 | Outpatient (REF) | payer OTHER, MEDICAID, SELFPAY ==
--- NOTE | ~2025-04-25 | CT_ITS ---
EXAMINATION: CT SOFT TISSUE NECK WITH CONTRAST CLINICAL INFORMATION: Palpable lymph nodes in neck, likely reactive, not definitively resolving . COMPARISON: No prior. TECHNIQUE: Following the intravenous administration of 60 mL of Omnipaque 350 intravenous contrast, helical imaging was performed in the axial plane with generation of coronal and sagittal reformatted images. This CT examination was performed using dose optimization techniques as appropriate, variously including the following: *Automated exposure control *Adjustment of mA and/or kV according to patient size (this includes techniques or standardized protocols for targeted exams where dose is matched to indication/reason for exam; i.e. extremities or head) *Use of iterative reconstruction technique FINDINGS: Lymph Nodes: -There are normal anterior and posterior chain subcentimeter reactive appearing lymph nodes present. There is no abnormal lymphadenopathy identified. No enlarged lymph nodes by size criteria. Carotid Sheath Structures: -Normal. Salivary Glands: -Normal. Tongue Base/Floor of Mouth: -Normal. Mucosal Space: -Mild prominence of the tonsillar pillar soft tissues, in keeping with reactive etiology. -There is no focal enhancing suspicious lesion. -Normal epiglottis and aryepiglottic folds. -Normal soft palate. Visceral Space: -Thyroid gland: Normal. -The larynx is normal. -The cervical esophagus is normal. -The subglottic trachea is normal. Retropharangeal Space: - Normal. Parapharyngeal Fat Planes: -Normal. Computer Aided Design Designer Spaces: -Normal. Anterior Cervical Space: -Normal. Imaged Intracranial Contents: -No mass effect, edema, or abnormal enhancement. Cortical and dural venous sinuses are patent. The skull base is normal. Globes and Orbits: -Normal. Paranasal Sinuses/Mastoids/Tympanic Spaces: -Moderate mucosal thickening is present involving the bilateral maxillary sinuses, bilateral ethmoid sinuses, as well as the left sphenoid sinus. No definite air-fluid levels seen although there are associated frothy secretions. -The mastoids and tympanic spaces are normally aerated. Lung Apices and Superior Mediastinal Structures: -Imaged lung apices are clear. -Superior mediastinal structures demonstrate residual thymus, are otherwise normal. Bony Structures: -No suspicious bone lesions. No fractures. -Normal TM joints. -Mild reversal of the normal lordosis of the cervical spine, nonspecific. Cervical spine otherwise images normally. CT/CT soft tissue neck w IV con IMPRESSION: 1. No abnormal lymphadenopathy within the anterior or posterior cervical chains. Small subcentimeter reactive lymph nodes are present. 2. Moderate paranasal sinus disease involving the bilateral maxillary, bilateral ethmoid, and left sphenoid sinus as discussed. 3. Remainder of the examination is normal. Electronically signed by: Jacob Barkley MD 04/25/2025 09:15 AM EDT RP
--- OUTSIDE RECORDS SUMMARY | 2025-04-25 09:20 | XMS_ITS | Encounter Summary ---
Author Organization [employer] Address [address] [facility] [address] [place] [address] Care Team Providers Care Credit Charge Authorizer Name Role Phone Anh Solomon MD Primary Care Provider [phone] Reason for Visit * Reason Onset Date Comments Appointment Request 04/27/2024 Encounter Details Date Type Department Care Team ([facility] st Contact Info) Description 04/27/2024 Telephone [facility] [address] [place], [place] [phone] Anh Solomon MD [address] [place], [place] [phone] Appointment Request Social History Tobacco Use Types [...] Description 06/06/2025 1:45 PM EST Office Visit [facility] [address] [place] [phone] Anh Solomon MD [address] [place] [address] documented as of this encounter Visit Diagnoses Not on filedocumented in this encounter Care Teams Credit Charge Authorizer Relationship Specialty Start Date End Date Anh Solomon MD [address] [place] [phone] PCP - General Family Medicine 08/03/18 documented as of this encounter
--- OUTSIDE RECORDS SUMMARY | 2025-04-25 09:20 | XMS_ITS | Clinical Summary ---
Author Organization [employer] Address [address] [facility] [address] [place] [address] Care Team Providers Care College Teacher Name Role Phone Anh Solomon MD Primary Care Provider [phone] Allergies No known active allergies Medications * [...] on 06/02/24 - patient was seen by [facility] on 06/02/24 and was arranged for off-site [...] on 06/02/24 - patient was seen by [facility] on 06/02/24 and will be arranged for counseling service - prescribed escitalopram 5 mg daily and patient will start medication after her asthma symptoms improve - will schedule for short-term follow-up Assessment & Plan (06/03/2024 11:46 AM EDT): - PHQ9 score 15 and GAD7 score 14 - patient is seen by [facility] today and will be arranged for counseling [...] (12/10/2022 3:08 PM EDT): - 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 - last PAP in Jun 2018, due [...] Description 06/06/2025 1:45 PM EST Office Visit [facility] [address] [place] [phone] Anh Solomon MD [address] [place], [place] [phone] Health Maintenance Due Date Last Done Comments [...] Procedure Name Priority Date/Time Associated Diagnosis Comments CT SOFT TISSUE NECK W CONTRAST Routine 04/25/2025 8:32 AM EDT Fatigue, unspecified type Lymph nodes enlarged VITAMIN B1 Routine 04/14/2025 10:19 AM EDT VITAMIN A Routine 04/14/2025 10:19 AM EDT ZINC Routine 04/14/2025 10:19 AM EDT TSH W/REFLEX TO FT4 Routine 04/14/2025 1 0:19 AM EDT VITAMIN D,25-OH,TOTAL,IA Routine 04/14/2025 10:19 AM EDT FERRITIN Routine 04/14/2025 10:19 AM EDT VITAMIN B12/FOLATE, SERUM PANEL Routine 04/14/2025 10:19 AM EDT LIPID PANEL, STANDARD Routine 04/14/2025 10:19 AM EDT C-REACTIVE PROTEIN Routine 04/14/2025 10 :19 AM EDT IRON AND TOTAL IRON BINDING CAPACITY Routine 04/14/2025 10:19 AM EDT COMPREHENSIVE METABOLIC PANEL Routine 04/14/2025 10:19 AM EDT HEMOGLOBIN A1C Routine 04/14/2025 10:19 AM EDT CBC WITH AUTO DIFFERENTIAL Routine 04/14/2025 10:19 AM EDT PAP SMEAR Routine 01/28/2023 9:46 AM EDT HM PAP/HPV Routine 01/28/2023 ZZZ HISTORICAL HEPATITIS C ANTIBODY RFLX Routine 06/14/2021 12:41 PM EST ZZZ HISTORICAL HIV AB/AG Routine 06/14/2021 12:41 PM EST from Last 3 Months or Most Recently Relevant to Health Maintenance Results * CT Soft Tissue Neck w/ Contrast (04/25/2025 8:32 AM EDT) Anatomical Region Laterality Modality Head, Neck Computed Tomogra phy 04/25/2025 8:32 AM EDT Narrative 04/25/2025 9:19 AM EDT [place] [address] [address] Scan Report Signed Patient: Jewell Ramires MR#: [id number] : 1990 Acct:[id number] Age/Sex: 35 / F ADM Date: 04/25/25 Loc: HO.CT Attending Dr: Anh Solomon MD Ordering Physician: Anh Solomon MD Date of Service: 04/25/25 Procedure(s): CT soft tissue neck w IV con Accession Number(s): [id number] cc: Anh Solomon MD Report Number: [id number]: Total DLP = 277.00 mGy-cm Reason for Exam: palpable lymph nodes in neck, likely reactive, yet has not resolved EXAMINATION: CT SOFT TISSUE NECK WITH CONTRAST CLINICAL INFORMATION: Palpable lymph nodes in neck, likely reactive, not definitively resolving . COMPARISON: No prior. TECHNIQUE: Following the intravenous administration of 60 mL of Omnipaque 350 intravenous contrast, helical imaging was performed in the axial plane with generation of coronal and sagittal reformatted images. This CT examination was performed using dose optimization techniques as appropriate, variously including the following: *Automated exposure control *Adjustment of mA and/or kV according to patient size (this includes techniques or standardized protocols for targeted exams where dose is matched to indication/reason for exam; i.e. extremities or head) *Use of iterative reconstruction technique FINDINGS: Lymph Nodes: -There are normal anterior and posterior chain subcentimeter reactive appearing lymph nodes present. There is no abnormal lymphadenopathy identified. No enlarged lymph nodes by size criteria. Carotid Sheath Structures: -Normal. Salivary Glands: -Normal. Tongue Base/Floor of Mouth: -Normal. Mucosal Space: -Mild prominence of the tonsillar pillar soft tissues, in keeping with reactive etiology. -There is no focal enhancing suspicious lesion. -Normal epiglottis and aryepiglottic folds. -Normal soft palate. Visceral Space: -Thyroid gland: Normal. -The larynx is normal. -The cervical esophagus is normal. -The subglottic trachea is normal. Retropharangeal Space: - Normal. Parapharyngeal Fat Planes: -Normal. Scrap Baller Spaces: -Normal. Anterior Cervical Space: -Normal. Imaged Intracranial Contents: -No mass effect, edema, or abnormal enhancement. Cortical and dural venous sinuses are patent. The skull base is normal. Globes and Orbits: -Normal. Paranasal Sinuses/Mastoids/Tympanic Spaces: -Moderate mucosal thickening is present involving the bilateral maxillary sinuses, bilateral ethmoid sinuses, as well as the left sphenoid sinus. No definite air-fluid levels seen although there are associated frothy secretions. -The mastoids and tympanic spaces are normally aerated. Lung Apices and Superior Mediastinal Structures: -Imaged lung apices are clear. -Superior mediastinal structures demonstrate residual thymus, are otherwise normal. Bony Structures: -No suspicious bone lesions. No fractures. -Normal TM joints. -Mild reversal of the normal lordosis of the cervical spine, nonspecific. Cervical spine otherwise images normally. CT/CT soft tissue neck w IV con IMPRESSION: 1. No abnormal lymphadenopathy within the anterior or posterior cervical chains. Small subcentimeter reactive lymph nodes are present. 2. Moderate paranasal sinus disease involving the bilateral maxillary, bilateral ethmoid, and left sphenoid sinus as discussed. 3. Remainder of the examination is normal. Electronically signed by: Jacob Barkley MD 04/25/2025 09:15 AM EDT Dictated By: Jacob Barkley MD Signed By: <Electronically signed by Jacob Barkley MD in OV> 04/25/25 0915 DD/ 0832 TD/TT: 04/25/25 0901 Sprinkler Installer: Procedure Note Donotuseinterpreter, Image - 04/25/[address] [address] [address] Scan Report Signed Patient: Brittni Ramires#: [id number] : 1990Acct:[id number] Age/Sex: 35 / FADM Date: 04/25/25 Loc: HO.CT Attending Dr: Anh Solomon MD Ordering Physician: Anh Solomon MD Date of Service: 04/25/25 Procedure(s): CT soft tissue neck w IV con Accession Number(s): [id number] cc: Anh Solomon MD Report Number: [id number]: Total DLP = 277.00 mGy-cm Reason for Exam: palpable lymph nodes in neck, likely reactive, yet hasnot resolved EXAMINATION: CT SOFT TISSUE NECK WITH CONTRAST CLINICAL INFORMATION: Palpable lymph nodes in neck, likely reactive, not definitively resolving . COMPARISON: No prior. TECHNIQUE: Following the intravenous administration of 60 mL of Omnipaque 350 intravenous contrast, helical imaging was performed in the axial plane with generation of coronal and sagittal reformatted images. This CT examination was performed using dose optimization techniques as appropriate, variously including the following: *Automated exposure control *Adjustment of mA and/or kV according to patient size (this includes techniques or standardized protocols for targeted exams where dose is matched to indication/reason for exam; i.e. extremities or head) *Use of iterative reconstruction technique FINDINGS: Lymph Nodes: -There are normal anterior and posterior chain subcentimeter reactive appearing lymph nodes present. There is no abnormal lymphadenopathy identified. No enlarged lymph nodes by size criteria. Carotid Sheath Structures: -Normal. Salivary Glands: -Normal. Tongue Base/Floor of Mouth: -Normal. Mucosal Space: -Mild prominence of the tonsillar pillar soft tissues, in keeping with reactive etiology. -There is no focal enhancing suspicious lesion. -Normal epiglottis and aryepiglottic folds. -Normal soft palate. Visceral Space: -Thyroid gland: Normal. -The larynx is normal. -The cervical esophagus is normal. -The subglottic trachea is normal. Retropharangeal Space: - Normal. Parapharyngeal Fat Planes: -Normal. Scrap Baller Spaces: -Normal. Anterior Cervical Space: -Normal. Imaged Intracranial Contents: -No mass effect, edema, or abnormal enhancement. Cortical and dural venous sinuses are patent. The skull base is normal. Globes and Orbits: -Normal. Paranasal Sinuses/Mastoids/Tympanic Spaces: -Moderate mucosal thickening is present involving the bilateral maxillary sinuses, bilateral ethmoid sinuses, as well as the left sphenoid sinus. No definite air-fluid levels seen although there are associated frothy secretions. -The mastoids and tympanic spaces are normally aerated. Lung Apices and Superior Mediastinal Structures: -Imaged lung apices are clear. -Superior mediastinal structures demonstrate residual thymus, are otherwise normal. Bony Structures: -No suspicious bone lesions. No fractures. -Normal TM joints. -Mild reversal of the normal lordosis of the cervical spine, nonspecific. Cervical spine otherwise images normally. CT/CT soft tissue neck w IV con IMPRESSION: 1. No abnormal lymphadenopathy within the anterior or posterior cervical chains. Small subcentimeter reactive lymph nodes are present. 2. Moderate paranasal sinus disease involving the bilateral maxillary, bilateral ethmoid, and left sphenoid sinus as discussed. 3. Remainder of the examination is normal. Electronically signed by: Jacob Barkley MD 04/25/2025 09:15 AM EDT Dictated By: Jacob Barkley MD Signed By: <Electronically signed by Jacob Barkley MD in OV> 04/25/2515 DD/ 0832 TD/TT: 04/25/25 0901 Sprinkler Installer: Anh Solomon MD [facility] CT PROCEDURES Final Result * Vitamin D, 25-Hydroxy, Total, Immunoassay (04/14/2025 10:19 AM EDT) Vitamin D 25-OH Total 42.1 >30 ng/mL [facility] Comment: Health Based Reference Values*< 20 ng/mL Tgdbcgore34-72 ng/mL Insufficient> 30 ng/mL Sufficient*Nader SIBLEY. N Engl J Med. 2007;357:266-280There is no well-established upper level of normal vitamin Dlevels. Some laboratories use 50 ng/mL as an upper limit ofnormal. However, toxicity is patient-dependent and may occurat any level. Careful correlation with the patient'spresentation is necessary and, if there is concern forvitamin D toxicity, treatment should be consideredirrespective of the serum level.Care must be taken in interpreting Vitamin D results fromdifferent laboratories and methodologies. Published datademonstrated that results from patients undergoinghemodialysis may show a negative bias when tested withvarious automated 25-OH vitamin D assays when compared toLC-MS/MS.When testing samples from patients whose predominant form ofVitamin D is Vitamin D2, such as patients receiving VitaminD2 supplementation, results that are subtherapeutic shouldbe confirmed with another method such as LC-MS/MS. 04/14/2025 10:1 9 AM EDT 04/14/2025 10:19 AM EDT us Generic External Data Provider LAB BLOOD ORDERAB LES Final Result Performing Organization Address [facility] Co de Phone Number [facility] [address] [place] [phone] * Vitamin B12 (Cobalamin) and Folate Panel, Serum (04/14/2025 10:19 AM EDT) Vitamin B12 811 200 - 900 pg/mL [facility] Comment:NORMAL 200-900 PG/ML INDETERMINATE 160-199 PG/ML DEFICIENT < 160 PG/ML Folate 12.8 > or = 4.0 ng/mL [facility] Comment:Reference Values:> o r = 4.0 ng/mL< 4.0 ng/mL suggests folate deficiency Methotrexate, aminopterin and folinic acid(leucovorin) are chemotherapeutic agents whose molecularstructures are similar to folate; therefore, the Architectfolate assay cannot be used for patients using these drugs. 04/14/2025 10:1 9 AM EDT 04/14/2025 10:19 AM EDT us Generic External Data Provider LAB BLOOD ORDERAB LES Final Result Performing Organization Address [facility]/ZIP Co de Phone Number [facility] [address] [place] [phone] * TSH with Reflex to Free T4 (04/14/2025 10:19 AM EDT) TSH reflex Free T4 0.46 0.32 - 4.0 uIU/mL [facility] 04/14/2025 10:1 9 AM EDT 04/14/2025 10:19 AM EDT us Generic External Data Provider LAB BLOOD ORDERAB LES Final Result [facility] [address] [place] [phone] * (ABNORMAL) CBC auto differential (04/14/2025 10:19 AM EDT) Pathologist [facility] White Blood Count 5.6 4.8 - 10.8 X10*3/uL [facility] Red Blood Count 4.13(L) 4.20 - 5.50 X10*6/uL [facility] Hemoglobin 12.6 12.0 - 16.0 g/dl [facility] Hematocrit 37.4 37.0 - 47.0 % [facility] Mean Corpuscular Volume 90.6 80.0 - 98.0 fL [facility] Mean Corpuscular Hemoglobin 30.5 27.0 - 33.0 pg [facility] Mean Corpuscular HGB Conc 33.7 31.0 - 35.0 g/dl [facility] Red Cell Distribution Width 12.4 11.0 - 16.0 % [facility] Platelet Count 251 160 - 400 X10*3/uL [facility] Mean Platelet Volume 10.5 9.4 - 12.3 fL [facility] Neutrophils Percent Auto 48.1 45 - 73 % [facility] Imm Gran Pct Auto 0.2 0.0 - 0.4 % [facility] Lymphocytes Percent Auto 40.8(H) 20 - 40 % [facility] Monocytes Percent Auto 6.4 2 - 11 % [facility] Eosinophils Percent Auto 3.8 0 - 4 % [facility] Basophils Percent Auto 0.7 0 - 2 % [facility] NRBC Pct Auto 0.0 0.0 - 0.2 /100WBC [facility] Neutrophils Absolute Auto 2.7 2.0 - 8.3 x10*3/uL [facility] Imm Gran Abs Auto 0.01 0.00 - 0.03 X10*3/uL [facility] Lymphocytes Absolute Auto 2.3 1.2 - 4.9 X10*3/uL [facility] Monocytes Absolute Auto 0.4 0.1 - 1.2 X10*3/uL [facility] Eosinophils Absolute Auto 0.2 0.0 - 0.4 X10*3/uL [facility] Basophils Absolute Auto 0.0 0.0 - 0.2 X10*3/uL [facility] NRBC Abs Auto 0.000 0.0 - 0.012 X10*3/uL [facility] 04/14/2025 10:1 9 AM EDT 04/14/2025 10:19 AM EDT us Generic External Data Provider LAB BLOOD ORDERAB LES Final Result Performing Organization Address [facility] Co de Phone Number [facility] [address] [place] [phone] * Iron And Total Iron Binding Capacity (04/14/2025 10:19 AM EDT) Iron 91 30 - 160 mcg/dL [facility] Total Iron Binding Capacity 364 228 - 428 mcg/dL [facility] Percent Iron Saturation 25 15 - 50 % [facility] Unsaturated Iron Binding 273 ug/dL [facility] 04/14/2025 10:1 9 AM EDT 04/14/2025 10:19 AM EDT us Generic External Data Provider LAB BLOOD ORDERAB LES Final Result Performing Organization Address City/[facility]/ZIP Co de Phone Number [facility] [address] [place] [phone] * Zinc (04/14/2025 10:19 AM EDT) Zinc 63 60 - 130 mcg/dL [facility] Comment:This test was develo ped and its analytical performancecharacteristics have been determined by [employer] [place], [place]. It hasnot been cleared or approved by the U.S. Food and DrugAdministration. This assay has been validated pursuantto the CLIA regulations and is used for clinicalpurposes.THIS TEST WAS PERFORMED AT:[employer] [address] [phone] GARSIA MD,PHD 04/14/2025 10:1 9 AM EDT 04/14/2025 10:19 AM EDT us Generic External Data Provider LAB BLOOD ORDERAB LES Final Result [facility] [address] [place] [phone] * Vitamin A (04/14/2025 10:19 AM EDT) Pathologist [facility] Vitamin A (Retinol) 51 38 - 98 mcg/dL [facility] Comment:Vitamin supplementat ion within 24 hours prior toblood draw may affect the accuracy of the results.This test was developed and its analytical performancecharacteristics have been determined by [employer] [place], [place]. It hasnot been cleared or approved by the U.S. Food and DrugAdministration. This assay has been validated pursuantto the CLIA regulations and is used for clinicalpurposes.THIS TEST WAS PERFORMED AT:[employer] [place] [phone] GARSIA MD,PHD 04/14/2025 10:1 9 AM EDT 04/14/2025 10:19 AM EDT us Generic External Data Provider LAB BLOOD ORDERAB LES Final Result Performing Organization Address City/[facility]/ZIP Co de Phone Number [facility] [address] [place] [phone] * C-reactive Protein (04/14/2025 10:19 AM EDT) C Reactive Protein <0.10 < or = 0.50 mg/dL [facility] 04/14/2025 10:1 9 AM EDT 04/14/2025 10:19 AM EDT Generic External Data Provider LAB BLOOD ORDERAB LES Final Result Performing Organization Address [facility] de Phone Number [facility] [address] [place] [phone] * Vitamin B1 (04/14/2025 10:19 AM EDT) Pathologist [facility] Vitamin B1 12 8 - 30 nmol/L [facility] Comment:Vitamin supplementat ion within 24 hours prior toblood draw may affect the accuracy of the results.This test was developed and its analytical performancecharacteristics have been determined by [employer] [place], [place]. It hasnot been cleared or approved by the U.S. Food and DrugAdministration. This assay has been validated pursuantto the CLIA regulations and is used for clinicalpurposes.THIS TEST WAS PERFORMED AT:[employer]/[facility] [place] [address]EFZHSZHMERLYN GARSIA MD,PHD 04/14/2025 10:1 9 AM EDT 04/14/2025 10:19 AM EDT Generic External Data Provider LAB BLOOD ORDERAB LES Final Result Performing Organization Address [facility] Co de Phone Number [facility] [address] [place] [phone] * Hemoglobin A1c (04/14/2025 10:19 AM EDT) Hemoglobin A1c 5.1 <6.0 % [facility] Comment:Hemoglobin A1C Refer ence Range Adults: 4.8 - 6.0 % Non diabetic: < 6.0 % Goal: < 7.0 %Additional Action Suggested: > 8.0 %Note: Hemoglobin A1c results are invalid for patients with abnormal amounts of HbF. Blood transfusions may impact the HbA1c concentration in the patient sample. Estimated Average Glucose 100 mg/dL [facility] Comment:eAG = Estimated ave rage glucose which is %A1C expressed asaverage glucose, using the formula of the M5T-JrvstzuTcxfakw Glucose study (ADAG), Diabetes Care, Vol.31,#8,2007 04/14/2025 10:1 9 AM EDT 04/14/2025 10:19 AM EDT Generic External Data Provider LAB BLOOD ORDERAB LES Final Result Performing Organization Address [facility] Co de Phone Number [facility] [address] [place] [phone] * Ferritin (04/14/2025 10:19 AM EDT) Pathologist [facility] Ferritin 20 10 - 122 ng/mL [facility] 04/14/2025 10:1 9 AM EDT 04/14/2025 10:19 AM EDT [employer] External Data Provider LAB BLOOD ORDERAB LES Final Result Performing Organization Address [facility] Co de Phone Number [facility] [address] [place] [phone] * (ABNORMAL) Lipid Panel, Standard (04/14/2025 10:19 AM EDT) Triglycerides 81 <150 mg/dL [facility] Comment:Desirable Triglyceri de: less than 150 mg/dLBorderline High Triglyceride 150-199 mg/dLHigh Triglyceride: 200-499 mg/dLVery High Triglyceride: greater than or equal to 5OO mg/dL Cholesterol 198 <200 mg/dL [facility] Comment:Desirable Cholestero l: less than 200 mg/dLBorderline High Cholesterol: 200-239 mg/dLHigh Cholesterol: greater than 239 mg/dL LDL Cholesterol Calculated 107(H) <100 mg/dL [facility] Comment:Desirable LDL: less than 100 mg/dLNear Optimal/Above Optimal LDL: 110- 129 mg/dLBorderline High LDL: 130-159 mg/dLHigh LDL: 160-189 mg/dLVery High LDL: greater than or equal to 190 mg/dL HDL Cholesterol 75 >40 mg/dL [facility] Comment:Desirable HDL: great er than 40 mg/dL Note: This HDL assay may give artificially low results in patients with liver disease. 04/14/2025 10:1 9 AM EDT 04/14/2025 10:19 AM EDT us Generic External Data Provider LAB BLOOD ORDERAB LES Final Result [facility] [address] [place] [phone] * (ABNORMAL) Comprehensive Metabolic Panel (04/14/2025 10:19 AM EDT) Sodium 141 135 - 145 mmol/L [facility] Potassium 3.8 3.3 - 5.1 mmol/L [facility] Chloride 105 96 - 108 mmol/L [facility] Carbon Dioxide 29 22 - 29 mmol/L [facility] Anion Gap 11(L) 12 - 20 [facility] Urea Nitrogen (BUN) 17(H) 9 - 16 mg/dL [facility] Creatinine, Serum 0.65 0.5 - 1.4 mg/dL [facility] Estimated Glomerular Filt Rate >60 [facility] Comment:Chronic Kidney Disea se: Estimated GFR < 60 mL/min/1.04g2Xyxyma Kidney Disease: Estimated GFR < 15 mL/min/1.73m2 Glucose 74 60 - 115 mg/dL [facility] Calcium 9.3 8.4 - 10.2 mg/dL [facility] Bilirubin, Total 0.6 0.0 - 1.0 mg/dL [facility] Aspartate Amino Transferase 34(H) 5 - 31 U/L [facility] Alanine Aminotransferase 19 0 - 31 U/L [facility] Total Protein 7.7 6.5 - 8.0 g/dL [facility] Albumin Level 4.6 3.5 - 5.0 g/dL [facility] Alkaline Phosphatase 46 39 - 117 U/L [facility] 04/14/2025 10:1 9 AM EDT 04/14/2025 10:19 AM EDT us Generic External Data Provider LAB BLOOD ORDERAB LES Final Result Performing Organization Address City/State/[facility] Co de Phone Number [facility] [address] [place] [phone] * Pap Smear (01/28/2023 9:46 AM EDT) 01/28/2023 9:46 AM EDT 01/29/2023 8:45 AM EDT Narrative [facility] - 02/14/2023 3:25 PM EDT ----- ------- Name: Ronnie Jewell Reynolds Age/Sex: 32/F : 1990 Unit#: [id number] Attend Dr: Meghan Enciso CNM Re01/28/23 Status: DEP REF Location: [facility] Disch: ----- ------- SPEC : [id number] RECD: 01/29/23 STATUS: ELVI BARRAGAN NUM: [id number] MARCELLE: 01/28/[address] [facility] DR: Meghan Enciso [facility] ENTERED: 01/29/23-5 SP TYPE: Pap Smr OT DR: Anh Solomon MD ORDERED: Pap Smear Interpretation Satisfactory for evaluation. Negative for intraepithelial lesion or malignancy. HPV mRNA E6/E7: NOT DETECTED This assay detects E6/E7 viral messenger RNA (mRNA) from 14 high-risk HPV types (16, 18, 31, 33, 35, 39, 45, 51, 52, 56, 58, 59, 66, 68) HPV testing performed by [employer], [place], [place]. See reference laboratory portion of the EMR for entire report. Clinical Information LMP: Previous PAP test: 07/01/18, Abnormal Other surgery: Colpo 02/06/06 ASCUS Other history: 2013 ASCUS, 2006 LGSIL Material Received ThinPrep-Cervical Copies To: Meghan Enciso [address] [address] Anh Solomon MD [address] [place] [address] ----- ------- Signed (signature on file) Lenora Ye [employer] 02/14/23 1525 ----- ------- END OF REPORT [facility] External Provider LAB CYT OLOGY ORDERABLES Final Result Performing Organization Address [facility]/ZIP Co de Phone Number [facility] [address] [place] [phone] * Hm Pap Smear (01/28/2023) Pap Negative for intraephithelial lesion or malignancy Negative for intraephithelial lesion or malignancy, Other HPV Undetected [facility] Unassigned Pcp HEALTH MAINTENANCE Final Result * HEPATITIS C ANTIBODY RFLX (06/14/2021 12:41 PM EST) Pathologist [facility] Hepatitis C Antibody Nonreactive Nonreactive [facility] Comment: Antibodies to HCV not detected; does not exclude early acute HCV infection. 06/14/2021 12:4 1 PM EST Anh Solomon MD HISTORICAL/NON ORDERABLE LABS Fi nal Result Performing Organization Address [facility] Co de Phone Number [facility] [address] * HIV AB/AG (06/14/2021 12:41 PM EST) HIV AB/AG Nonreactive Nonreactive [facility] Comment: HIV-1 p24 Ag and/or [...] of detection of this assay. The [employer] HIV Ag/Ab Combo assay result and supplemental assay results should be interpreted in conjunction with the patient's clinical presentation, history and other laboratory results. If the results are inconsistent with clinical evidence, additional testing is suggested to confirm the result. Hepatitis B Surface Antigen Negative Negative [facility] 06/14/2021 12:4 1 PM EST us Anh Solomon MD HISTORICAL/NON ORDERABLE LABS Fi nal Result [facility] [address] from Last 3 Months or Most Recently Relevant to Health Maintenance Insurance [facility] [employer] Care Teams College Teacher Relationship Specialty Start Date End Date Anh Solomon MD [address] [place] [address] PCP - General Family Medicine 08/03/18
== END 2025-04-25 08:25 | disposition home or self-care (01) ==
LOC: HO.CT 08:24
PROVIDERS: PCP Family Medicine; Visit Provider Family Medicine
DX: R59.9 Enlarged lymph nodes, unspecified (principal); R53.83 Other fatigue
CPT/HCPCS: 70491; Q9967

== ENCOUNTER → 2025-04-25 08:26 | Outpatient (BNV) | payer OTHER, MEDICAID, SELFPAY | PROVIDERS: PCP Family Medicine; Visit Provider Radiology Diagnostic Radiology | DX: J32.0 Chronic maxillary sinusitis (principal); R59.9 Enlarged lymph nodes, unspecified | CPT/HCPCS: 70491 ==

== ENCOUNTER 2025-06-12 12:20 | Outpatient (AMB) | payer OTHER, MEDICAID, SELFPAY ==
--- NOTE | 2025-06-12 12:33 | A.OFFVIS_ITS ---
VS Expanded 06/12/25 12:36 Height 5 ft 3 in Weight 173 lb BMI 30.6 Intake Visit Reasons: TV PO LSG 09/04/22 Allergies No Known Allergies Allergy (Verified 09/14/24 09:52) Medication List - Last Reconciled 06/12/25 by CRICKET Monk albuterol sulfate 90 mcg/actuation 2 puffs inhalation Q4-6H PRN [celebrate MVI PO DAILY] fluticasone propionate 50 mcg/actuation (Flovent Diskus) 1 inh inhalation Q12H HPI Comments Details: This a 34 yo female who is s/p LSG without hiatal hernia repair on 09/04/[address] Smith. Presents for 2 year 9 month post op visit. Weight today is 173 pounds, unchanged from last visit 3mo. Initial weight 254.8 pounds since starting the program on 04/16/22 and operative weight 216.5 pounds. No complaints of nausea, emesis, abdominal pain or reflux. Reports infrequent but normal bowel movements every 2-3 days and uses Miralax regularly. SHe reports a lot of anxiety at night, did not follow the RightBMI meal plan. Tried Atkins bars but did not feel satisfied by them in terms of hunger. Sees Meagan at [facility]; was prescribed escitalopram by PCP. However she did not start this. Stopped taking MVI due nausea, uses capsules. [facility] Medical History BMI 39.0-39.9,adult Binge-eating disorder, mild Asthma GERD (gastroesophageal reflux disease) Morbid obesity Surgical History History of epidural anesthesia History of tubal ligation Social History Are you a primary career development coordinator to a significant other at home: No Do you presently have visiting nurse or other home services: No Patient Tobacco Use Status: Never used Tobacco Second Hand Smoke Exposure: No service: No Current occupational status: employed Female Reproductive History Menstrual Age of Menarche: 11 Telehealth Telehealth Telehealth Platform: Telephone Location of provider rendering services: other Location of patient: address on file Patient Identification confirmed using: Name, : Yes Telehealth method: voice only Patient verbally consented to treatment: Yes Patient verbally consented to billing insurance company: Yes Patient informed of any privacy concerns related to visit: Yes Minutes spent on Phone/Video with Pt.: 16 Assessment & Plan Assessment & Plan (1) Obesity: Code(s): E66.9 - Obesity, unspecified Category: Medical (2) S/P laparoscopic sleeve gastrectomy: Code(s): Z98.84 - Bariatric surgery status Category: Surgical Plan Pt is interested in starting GLP1. Reviewed contraindications, discussed dosing. Discussed need for adequate protein intake while on GLP1s as well as frequent communication with our office. Pt will check in with me weekly and is aware that subsequent Rx will be dependent on frequent communication. She will try RightBMI paulino again. Will set up appt with Bisi for strategies on how to avoid giving in to cravings, snacking, eating related to anxiety. Suggested opening MVI capsule and mixing into protein drink to minimize nausea and improve consistency in taking. Labs reviewed. RTC 3-4 months TV. Medications: New tirzepatide (weight loss) (Zepbound) for 4 weeks 2.5 mg (0.5 mL) subcut QWEEK 2 mL 0RF
[2025-06-12 12:36] VITALS: BMI 30.6
--- OUTSIDE RECORDS SUMMARY | 2025-06-12 14:36 | XMS_ITS | Encounter Summary ---
Author Organization [employer] Address [address] [facility] [address] [place] [address] Care Team Providers Care Blood Donor Recruiter Name Role Phone Anh Solomon MD Primary Care Provider [phone] Encounter Details Date Type Department Care Team (Late st Contact Info) Description 04/25/2025 Results Follow-Up [facility] [address], [place] [phone] Anh Solomon MD [address] [place], [place] [phone] CT Soft Tissue Neck w/ Contrast Social History Tobacco Use Types Packs/Day Years [...] t he electric, gas, oil or water [employer] threatened to shut off services in your [...] as of this encounter Plan of Treatment Not on file documented as of this encounter Visit Diagnoses Not on filedocumented in this encounter Additional Health Concerns Assessment Noted Time PHQ-9 Depression Total Score: 11 024 11:09 AM EST documented as of this encounter Care Teams Blood Donor Recruiter Relationship Specialty Start Date End Date Anh Solomon MD [address] [place] [id number] PCP - General Family Medicine 08/03/18 documented as of this encounter
--- OUTSIDE RECORDS SUMMARY | 2025-06-12 14:36 | XMS_ITS | Clinical Summary ---
Author Organization [employer] Address [address] [facility] [address] [place] [address] Care Team Providers Care Mailing Machine Helper Name Role Phone Anh Solomon MD Primary Care Provider [phone] Allergies No known active allergies Medications * This document contains information received from the source organization and may not represent a complete record from that organization. ketoconazole (NIZOral) 2 % cream Apply topically Once per day. 60 g 11 06/02/20 24 Active albuterol (ProAir HFA) 108 (90 Base) MCG/ACT inhaler Inhale 2 puffs every 4 (four) hours if needed for wheezing or shortness of breath. 18 g 1 06/02/20 24 Active albuterol (2.5 MG/3ML) 0.083% nebulizer solution Take 3 mL (2.5 mg) by nebulization every 4 (four) hours if needed for wheezing or shortness of breath. 75 mL 2 06/02/20 24 Active ibuprofen 800 MG tablet take 1 tablet by oral route up to 3 times daily as needed for pain / fever. Take with food. DO NOT TAKE EVERYDAY FOR > 2 wks 04/23/20 22 Active fluticasone furoate (Arnuity Ellipta) 100 MCG/ACT inhaler Take 1 puff by mouth once daily 30 each 3 07/12/20 24 Active escitalopram (Lexapro) 5 MG tablet TAKE 1 TABLET (5 MG) BY MOUTH ONCE PER DAY. 90 tablet 1 06/01/20 25 Active escitalopram (Lexapro) 5 MG tablet Take 1 tablet (5 mg) by mouth Once per day. 90 tablet 3 06/02/20 24 025 Discontinued Active Problems Problem Noted Date Diagnosed Date History of bilateral tubal ligation 06/11/2025 Healthcare maintenance 06/11/2025 Assessment & Plan (06/11/2025 11:31 AM EST): - immunizations: patient was recommended influenza vaccine. Not up to date on covid and influenza. Otherwise, up to date - cervical cancer screenin01/28/2023 negative / negative - dental: Maxillofacial Surgery Bradycardia 07/12/2024 Assessment & Plan (06/11/2025 11:27 AM EST): - mild, likely benign Assessment & Plan (07/15/2024 11:19 AM EST): - mild, likely benign Hair loss 06/03/2024 Assessment & Plan (06/11/2025 11:36 AM EST): - normal TSH - well-balanced diet with vitamin supplementation Assessment & Plan (06/03/2024 11:48 AM EDT): - normal TSH - well-balanced diet with vitamin supplementation Seborrheic dermatitis 06/02/2024 Assessment & Plan (06/02/2024 11:32 AM EDT): - patient has tried topical steroid - will try topical ketoconazole Lymph nodes enlarged 06/02/2024 Assessment & Plan (06/11/2025 11:37 AM EST): - bilateral and cervical, right submandibular and left anterior cervical - mobile, non-tender - likely reactive, but has not resolved - neck CT showed benign result Assessment & Plan (07/15/2024 11:19 AM EST): [...] Major depressive disorder 12/10/2022 Assessment & Plan (06/11/2025 11:33 AM EST): - PHQ9 score 15 and GAD7 score 14 on 06/02/24 - patient was seen by [facility] on 06/02/24 and was arranged for off-site counseling service - PHQ9 score 11 and GAD7 score 9 on 07/12/24 - PHQ9 score 6 and GAD7 score 2 on 06/06/2025 -Patient is not currently connected with [facility]. Therapist Meagan Victoria - prescribed escitalopram 5 mg daily, tolerating well with symptom relief. Discussed about dose increase, Assessment & Plan (07/15/2024 11:26 AM EST): - PHQ9 score 15 and GAD7 score 14 on 06/02/24 - patient was seen by [facility] on 06/02/24 and was arranged for off-site [...] 06/02/24 - patient was seen by [facility] on 06/02/24 and will be arranged for counseling service - prescribed escitalopram 5 mg daily and patient will start medication after her asthma symptoms improve - will schedule for short-term follow-up Assessment & Plan (06/03/2024 11:46 AM EDT): - PHQ9 score 15 and GAD7 score 14 - patient is seen by [facility] today and will be arranged for counseling service - will start escitalopram 5 mg daily and follow-up in 1 week by telephone for titration Assessment & Plan (12/10/2022 3:11 PM EDT): - pt was able to contract her safety today - pt is interested in getting counseling; pt cannot wait for clinician today. Will refer [facility]A - pt is hesitant to start medications History of sleeve gastrectomy 12/10/2022 Assessment & Plan (06/11/2025 11:29 AM EST): - 09/04/22 - continue adequate nutritional intake Assessment & Plan (07/12/2024 2:21 PM EST): Done 09/04/22 Assessment & Plan (12/10/2022 3:10 PM EDT): 09/04/22 PCOS (polycystic ovarian syndrome) 12/09/2022 Assessment & Plan (06/11/2025 11:28 AM EST): - s/p bariatric surgery 09/05/22 - work on lifestyle modifications Assessment & Plan (12/10/2022 3:08 PM EDT): [...] Gastroesophageal reflux disease 07/24/2015 Assessment & Plan (06/11/2025 11:46 AM EST): - previously on omeprazole prn - no need for medication currently Assessment & Plan (12/10/2022 3:07 PM EDT): - previously on omeprazole prn - no need for medication currently Allergic rhinitis 03/19/2015 Assessment & Plan (06/11/2025 11:38 AM EST): - recent CT showed sinus diseaes - continue cetrizine prn - pt no longer on montelukast Assessment & Plan (06/02/2024 11:21 AM EDT): -continue cetrizine prn -pt no longer on Singulair Assessment & Plan (12/09/2022 2:36 PM EDT): -continue cetrizine prn -pt no longer on Singulair Asthma 11/19/2012 Assessment & Plan (06/11/2025 11:36 AM EST): - moderate - severe exacerbation 3-4 times per year - currently prescribed fluticasone (Arnuity ) and albuterol - consider using budesonide / formoterol (Symbicort) for SMART Assessment & Plan (07/12/2024 2:23 PM EST): [...] prn -pt is no longer on Singulair Obesity 11/19/2012 Assessment & Plan (06/11/2025 11:29 AM EST): - s/p sleeve gastrectomy on 09/04/22. - continue vitamin supplementation - avoid NSAIDs - continue staying physically active - discussed about beneficial effect of exercise / physical activity for both metal and physical health Assessment & Plan (12/10/2022 3:06 PM EDT): [...] (12/10/2022 3:08 PM EDT): - following with foreman or supervisor and operator - last PAP in Jun 2018, due this year - evaluate with pelvic US Encounters Date Type Department Care Team Description 06/06/2025 1:45 PM EST Office Visit [address] [address] Anh Solomon MD History of bilateral tubal ligation (Primary Dx); Encounter for immunization; Dietary counseling; Exercise counseling; Class 1 obesity due to excess calories without serious comorbidity with body mass index (BMI) of 31.0 to 31.9 in adult; Healthcare maintenance; Bradycardia; Allergic rhinitis due to other allergic trigger, unspecified seasonality; Vitamin D deficiency; PCOS (polycystic ovarian syndrome); History of sleeve gastrectomy; Gastroesophageal reflux disease, unspecified whether esophagitis present; Current moderate episode of major depressive disorder without prior episode (CMS/HCC) ([facility]); Mild intermittent asthma without complication; Hair loss; Lymph nodes enlarged 06/06/2025 Travel 06/05/2025 Telephone [facility] [address] [place] [phone] Brandi Delgado [place] 06/01/2025 Refill [facility] [address] [place] [address] [phone] Anh Solomon MD 05/30/2025 Patient Outreach [address] [address] Anh Solomon MD Pre-visit Planning (SDOH screening negative and Tobacco screening negative) 04/26/2025 Telephone [facility] [address] [place], [place] [phone] Anh Solomon MD 04/25/2025 Results Follow-Up [facility] [address] [place] [address] Soft Tissue Neck w/ Contrast 04/14/2025 Orders Only GENERIC EXTERNAL DATA DEPARTMENT Provider, Generic External Data from Last 3 Months Immunizations Immunization Administration Dates Next Due DTaP 04/23/1994, 2,05/03/1991,12/01,1990 HPV, Quadrivalent 12/03/2012,02/01/2007,11/24/19 07 Hep B, Adolescent or Pediatric 11/01/1999,1998,02/18/1999 Hib ([facility]) 04/23/1994, 2,05/03/1991,12/01 Influenza injectable quadriv alent IIV4 with preservative 09/28/2017,05/30/2016,05/03/2015 Influenza injectable quadriv alent preservative free 05/09/2020,08/15/2019,10/12/2018 Influenza, IIV3, injectable 04/14/2012 Influenza, seasonal, injecta ble, preservative free 06/02/2024 MMR 11/05/1994,06/03/1991 OPV, Trivalent 04/23/1994, 2,1990,09/03 Pfizer Covid-19 Vaccine 12+ 06/02/2024 Pneumococcal Conjugate PCV 20 06/06/2025 Pneumococcal Polysaccharide PPSV23 02/03/2019, TD (adult), 2 [...] Tobacco: Never Tobacco Cessation:Counseling Given: Not Answered Alcohol Use Standard Drinks/Week Comments Never 0 (1 standard drink = 0.6 oz pur e alcohol) Depression Answer Date Recorded Patient Health Questionnaire-9 Score 6 06/06/2025 Patient Health Questionnaire-9 Score 6 06/06/2025 Last PHQ-9: Questionnaire Data Not on file 1 08/06/2024 Housing Stability Answer Date Recorded What is [...] Answer Date Recorded Patient Health Questionnaire-2 Score 2 06/06/2025 Internet Access Answer Date Recorded Internet Access Q1 Yes 06/02/2024 Internet Access Q2 Not on file 06/02/2024 Comments No Intention Date Recorded No desire to become (finding) 1 08/06/2024 Sex and Gender Information Value Date Recorded Sex Assigned at Female 06/02/2022 10:15 AM EDT Legal Sex Female 10:15 AM EDT Gender Identity Female 06/02/2022 10:15 AM EDT Sexual Orientation Straight 06/02/2022 10 :15 AM EDT Last Filed Vital Signs Vital Sign Reading Time Taken Comments Blood Pressure 128/70 06/06/2025 2:21 PM EST Pulse 63 06/06/2025 2:21 PM EST Temperature 36.5 C (97.7 F) 06/06/2025 2:21 PM EST Respiratory Rate 21 06/06/2025 2:21 PM EST Oxygen Saturation 98% 06/06/2025 2:21 PM EST Inhaled Oxygen Concentration - - Weight 80.7 kg (178 lb) 06/06/2025 2:21 PM EST Height 160 cm (5' 3 ) 06/06/2025 2:21 PM EST Body Mass Index 31.53 06/06/2025 2:21 PM EST Plan of Treatment Health Maintenance Due Date Last Done Comments Influenza Vaccine (#1) 2025 , 05/09/2020, 08/15/2019, Additional history exists Pap Smear 01/28/2026 01/28/2023, 01/28/2023 SDOH Screening 05/30/2026 05/30/2025 Alcohol/Substance Use Screening 06/06/2026 06/06/2025 Depression Screening 06/06/2026 06/06/2025, 06/06/20 Disability Screening 06/06/2026 06/06/2025 Family Planning (PISQ) 06/11/2026 06/11/2025 Tobacco Screening 06/11/2026 06/11/2025 Cervical Cancer Screening 01/29/2028 HPV/Cotest 01/29/2028 01/28/2023 DTaP/Tdap/Td Vaccines (8 - Td or Tdap) 01/11/2029 01/11/2019, 04/09/2010, 08/11/2002, Additional history exists Lipid Panel 04/14/2030 04/14/2025, 11/03, 06/12/2023, Additional history exists Zoster Vaccines (1 of 2) 2040 RSV Patients and Patients Aged 60 years or older (1 - 1-dose 75+ series) 2065 HIB Vaccines Completed 04/23/1994, 03/03, 05/03/1991, Additional history exists IPV Vaccines Completed 04/23/1994, 03/03, 1990, Additional history exists Hepatitis B Vaccines Completed 11/01/1999, 03/21/1999, 02/18/1999 HPV Vaccines Completed 12/03/2012, 07/0 09/2006, 11/23/2006 HIV Screening Completed 06/14/2021 Hepatitis C Screening Completed 06/14/2021 COVID-19 Vaccine Completed 06/02/2024, , 08/23/2020 Pneumococcal Vaccine: Pediatrics (0 to 5 Years) and At-Risk Patients (6 to 49) Years Completed 06/06/2025, 02/03/2019, 07/24/2015 Hepatitis A Vaccines Aged Out No long [...] AM EDT Narrative 04/25/2025 9:19 AM EDT [place] [address] [address] Scan Report Signed Patient: Jewell Ramires MR#: [id number] : 1990 Acct:[id number] Age/Sex: 35 / F ADM Date: 04/25/25 Loc: .CT Attending Dr: Anh Solomon MD Ordering Physician: Anh Solomon MD Date of Service: 04/25/25 Procedure(s): CT soft tissue neck w IV con Accession Number(s): [id number] cc: Anh Solomon MD Report Number: [id number]: Total DLP = 277.00 mGy-cm Reason for [...] Space: - Normal. Parapharyngeal Fat Planes: -Normal. City Planning Engineer Spaces: -Normal. Anterior Cervical Space: -Normal. Imaged [...] Jacob Barkley MD 04/25/2025 09:15 AM EDT RP Dictated By: Jacob Barkley MD Signed By: <Electronically signed by Jacob Barkley MD in OV> 04/25/2515 DD/ 0832 TD/TT: 04/25/25 0901 Irrigation Installation Specialist: Procedure Note Donotuseinterpreter, Image - 04/25/[address] [address] [address] Scan Report Signed Patient: Brittni Ramires#: [id number] : 1990Acct:[id number] Age/Sex: 35 / FADM Date: 04/25/25 Loc: HO.CT Attending Dr: Anh Solomon MD Ordering Physician: Anh Solomon MD Date of Service: 04/25/25 Procedure(s): CT soft tissue neck w IV con Accession Number(s): [id number] cc: Anh Solomon MD Report Number: [id number]: Total DLP = 277.00 mGy-cm Reason for [...] Space: - Normal. Parapharyngeal Fat Planes: -Normal. City Planning Engineer Spaces: -Normal. Anterior Cervical Space: -Normal. Imaged [...] 04/25/25 0915 DD/ 0832 TD/TT: 04/25/25 0901 Irrigation Installation Specialist: us Anh Solomon MD IMG CT PROCEDURES Final Result * Vitamin D, 25-Hydroxy, Total, Immunoassay (04/14/2025 10:19 AM EDT) Vitamin D 25-OH Total 42.1 >30 ng/mL [facility] Comment: Health Based Reference Values*< 20 ng/mL Gvqftosiq19-25 ng/mL Insufficient> 30 ng/mL Sufficient*Nader SIBLEY. N [...] Provider LAB BLOOD ORDERAB LES Final Result [facility] [address] [place] [phone] * Vitamin B12 (Cobalamin) and Folate Panel, Serum (04/14/2025 10:19 AM EDT) Vitamin B12 811 200 - 900 pg/mL [facility] Comment:NORMAL 200-900 PG/ML INDETERMINATE 160-199 PG/ML DEFICIENT < 160 PG/ML Folate 12.8 > or = 4.0 ng/mL [facility] Comment:Reference Values:> o r = 4.0 ng/mL< 4.0 ng/mL suggests folate deficiency Methotrexate, aminopterin and folinic acid(leucovorin) are chemotherapeutic agents whose molecularstructures are similar to folate; therefore, the Architectfolate assay cannot be used for patients using these drugs. 04/14/2025 10:1 9 AM EDT 04/14/2025 10:19 AM EDT Generic External Data Provider LAB BLOOD ORDERAB LES Final Result Performing Organization Address [facility]/ZIP Co de Phone Number [facility] [address] [place] [phone] * TSH with Reflex to Free T4 (04/14/2025 10:19 AM EDT) Pathologist [facility] [place] TSH reflex Free T4 0.46 0.32 - 4.0 uIU/mL [facility] 04/14/2025 10:1 9 AM EDT 04/14/2025 10:19 AM EDT Generic External Data Provider LAB BLOOD ORDERAB LES Final Result Performing Organization Address [facility] de Phone Number [facility] [address] [place] [phone] * (ABNORMAL) CBC auto differential (04/14/2025 10:19 AM EDT) Pathologist [facility] [place] White Blood Count 5.6 4.8 - 10.8 X10*3/uL [facility] Red Blood Count 4.13(L) 4.20 - 5.50 X10*6/uL [facility] Hemoglobin 12.6 12.0 - 16.0 g/dl [facility] Hematocrit 37.4 37.0 - 47.0 % [facility] Mean Corpuscular Volume 90.6 80.0 - 98.0 fL [facility] Mean Corpuscular Hemoglobin 30.5 27.0 - 33.0 pg [facility] Mean Corpuscular HGB Conc 33.7 31.0 - 35.0 g/dl [facility] Red Cell Distribution Width 12.4 11.0 - 16.0 % [facility] Platelet Count 251 160 - 400 X10*3/uL [facility] Mean Platelet Volume 10.5 9.4 - 12.3 fL [facility] Neutrophils Percent Auto 48.1 45 - 73 % [facility] Imm Gran Pct Auto 0.2 0.0 - 0.4 % [facility] Lymphocytes Percent Auto 40.8(H) 20 - 40 % [facility] Monocytes Percent Auto 6.4 2 - 11 % [facility] Eosinophils Percent Auto 3.8 0 - 4 % [facility] Basophils Percent Auto 0.7 0 - 2 % [facility] NRBC Pct Auto 0.0 0.0 - 0.2 /100WBC [facility] Neutrophils Absolute Auto 2.7 2.0 - 8.3 x10*3/uL [facility] Imm Gran Abs Auto 0.01 0.00 - 0.03 X10*3/uL [facility] Lymphocytes Absolute Auto 2.3 1.2 - 4.9 X10*3/uL [facility] Monocytes Absolute Auto 0.4 0.1 - 1.2 X10*3/uL [facility] Eosinophils Absolute Auto 0.2 0.0 - 0.4 X10*3/uL [facility] Basophils Absolute Auto 0.0 0.0 - 0.2 X10*3/uL [facility] NRBC Abs Auto 0.000 0.0 - 0.012 X10*3/uL [facility] 04/14/2025 10:1 9 AM EDT 04/14/2025 10:19 AM EDT us Generic External Data Provider LAB BLOOD ORDERAB LES Final Result [facility] [address] [place], [place] [phone] * Iron And Total Iron Binding Capacity (04/14/2025 10:19 AM EDT) Iron 91 30 - 160 mcg/dL [facility] Total Iron Binding Capacity 364 228 - 428 mcg/dL [facility] Percent Iron Saturation 25 15 - 50 % [facility] Unsaturated Iron Binding 273 ug/dL [facility] 04/14/2025 10:1 9 AM EDT 04/14/2025 10:19 AM EDT Generic External Data Provider LAB BLOOD ORDERAB LES Final Result Performing Organization Address [facility] Co de Phone Number [facility] [address] [place] [phone] * Zinc (04/14/2025 10:19 AM EDT) Zinc 63 60 - 130 mcg/dL [facility] Comment:This test was develo ped and its analytical performancecharacteristics have been determined by [employer] [place], [place]. It hasnot been cleared or approved by the U.S. Food and DrugAdministration. This assay has been validated pursuantto the CLIA regulations and is used for clinicalpurposes.THIS TEST WAS PERFORMED AT:[id number] [place] [address]TRBMJKKMERLYN GARSIA MD,PHD 04/14/2025 10:1 9 AM EDT 04/14/2025 10:19 AM EDT Generic External Data Provider LAB BLOOD ORDERAB LES Final Result Performing Organization Address [facility] Co de Phone Number [facility] [address] [place] [phone] * Vitamin A (04/14/2025 10:19 AM EDT) Vitamin A (Retinol) 51 38 - 98 mcg/dL [facility] Comment:Vitamin supplementat ion within 24 hours prior toblood draw may affect the accuracy of the results.This test was developed and its analytical performancecharacteristics have been determined by [employer] [place], [place]. It hasnot been cleared or approved by the U.S. Food and DrugAdministration. This assay has been validated pursuantto the CLIA regulations and is used for clinicalpurposes.THIS TEST WAS PERFORMED AT:[employer] [id number] [place] [address]QVTJPRDMERLYN GARSIA MD,PHD 04/14/2025 10:1 9 AM EDT 04/14/2025 10:19 AM EDT Generic External Data Provider LAB BLOOD ORDERAB LES Final Result Performing Organization Address [facility]/ZIP Co de Phone Number [facility] [address] [place] [phone] * C-reactive Protein (04/14/2025 10:19 AM EDT) C Reactive Protein <0.10 < or = 0.50 mg/dL [facility] 04/14/2025 10:1 9 AM EDT 04/14/2025 10:19 AM EDT Generic External Data Provider LAB BLOOD ORDERAB LES Final Result Performing Organization Address [facility] Co de Phone Number [facility] [address] [place] [phone] * Vitamin B1 (04/14/2025 10:19 AM EDT) Vitamin B1 12 8 - 30 nmol/L [facility] Comment:Vitamin supplementat ion within 24 hours prior toblood draw may affect the accuracy of the results.This test was developed and its analytical performancecharacteristics have been determined by [employer] [place], [place]. It hasnot been cleared or approved by the U.S. Food and DrugAdministration. This assay has been validated pursuantto the CLIA regulations and is used for clinicalpurposes.THIS TEST WAS PERFORMED AT:[employer] [id number] [place] [address]WOBBRPBMERLYN GARSIA MD,PHD 04/14/2025 10:1 9 AM EDT 04/14/2025 10:19 AM EDT us Generic External Data Provider LAB BLOOD ORDERAB LES Final Result Performing Organization Address [facility] Co de Phone Number [facility] [address] [place] [phone] * Hemoglobin A1c (04/14/2025 10:19 AM EDT) Hemoglobin A1c 5.1 <6.0 % [facility] Comment:Hemoglobin A1C Refer ence Range Adults: 4.8 - 6.0 % Non diabetic: < 6.0 % Goal: < 7.0 %Additional Action Suggested: > 8.0 %Note: Hemoglobin A1c results are invalid for patients with abnormal amounts of HbF. Blood transfusions may impact the HbA1c concentration in the patient sample. Estimated Average Glucose 100 mg/dL [facility] Comment:eAG = Estimated ave rage glucose which is %A1C expressed asaverage glucose, using the formula of the X8R-MkbufyrVcjlijo Glucose study (ADAG), Diabetes Care, Vol.31,#8,Mar. 2007 04/14/2025 10:1 9 AM EDT 04/14/2025 10:19 AM EDT us Generic External Data Provider LAB BLOOD ORDERAB LES Final Result Performing Organization Address [facility] Co de Phone Number [facility] [address] [place] [phone] * Ferritin (04/14/2025 10:19 AM EDT) Ferritin 20 10 - 122 ng/mL [facility] 04/14/2025 10:1 9 AM EDT 04/14/2025 10:19 AM EDT us Generic External Data Provider LAB BLOOD ORDERAB LES Final Result Performing Organization Address City/[facility] Co de Phone Number [facility] [address] [place] [phone] * (ABNORMAL) Lipid Panel, Standard (04/14/2025 10:19 AM EDT) Triglycerides 81 <150 mg/dL [facility] Comment:Desirable Triglyceri de: less than 150 mg/dLBorderline High Triglyceride 150-199 mg/dLHigh Triglyceride: 200-499 mg/dLVery High Triglyceride: greater than or equal to 5OO mg/dL Cholesterol 198 <200 mg/dL [facility] Comment:Desirable Cholestero l: less than 200 mg/dLBorderline High Cholesterol: 200-239 mg/dLHigh Cholesterol: greater than 239 mg/dL LDL Cholesterol Calculated 107(H) <100 mg/dL [facility] Comment:Desirable LDL: less than 100 mg/dLNear Optimal/Above Optimal LDL: 110- 129 mg/dLBorderline High LDL: 130-159 mg/dLHigh LDL: 160-189 mg/dLVery High LDL: greater than or equal to 190 mg/dL HDL Cholesterol 75 >40 mg/dL [facility] Comment:Desirable HDL: great er than 40 mg/dL Note: This HDL assay may give artificially low results in patients with liver disease. 04/14/2025 10:1 9 AM EDT 04/14/2025 10:19 AM EDT us Generic External Data Provider LAB BLOOD ORDERAB LES Final Result [facility] [address] [place] [phone] * (ABNORMAL) Comprehensive Metabolic Panel (04/14/2025 10:19 AM EDT) Sodium 141 135 - 145 mmol/L [facility] Potassium 3.8 3.3 - 5.1 mmol/L [facility] Chloride 105 96 - 108 mmol/L [facility] Carbon Dioxide 29 22 - 29 mmol/L [facility] Anion Gap 11(L) 12 - 20 [facility] Urea Nitrogen (BUN) 17(H) 9 - 16 mg/dL [facility] Creatinine, Serum 0.65 0.5 - 1.4 mg/dL [facility] Estimated Glomerular Filt Rate >60 [facility] Comment:Chronic Kidney Disea se: Estimated GFR < 60 mL/min/1.34b0Oftvni Kidney Disease: Estimated GFR < 15 mL/min/1.73m2 Glucose 74 60 - 115 mg/dL [facility] Calcium 9.3 8.4 - 10.2 mg/dL [facility] Bilirubin, Total 0.6 0.0 - 1.0 mg/dL [facility] Aspartate Amino Transferase 34(H) 5 - 31 U/L [facility] Alanine Aminotransferase 19 0 - 31 U/L [facility] Total Protein 7.7 6.5 - 8.0 g/dL [facility] Albumin Level 4.6 3.5 - 5.0 g/dL [facility] Alkaline Phosphatase 46 39 - 117 U/L [facility] 04/14/2025 10:1 9 AM EDT 04/14/2025 10:19 AM EDT us Generic External Data Provider LAB BLOOD ORDERAB LES Final Result Performing Organization Address City/State/[facility] Co de Phone Number [facility] [address] [place] [phone] * Pap Smear (01/28/2023 9:46 AM EDT) 01/28/2023 9:46 AM EDT 01/29/2023 8:45 AM EDT Narrative [facility] - 02/14/2023 3:25 PM EDT ----- ------- Name: Jewell Ramires Age/Sex: 32/F : 1990 Unit#: [id number] Attend Dr: Meghan Enciso Re01/28/23 Status: DEP REF Location: [facility] Disch: ----- ------- SPEC : [id number] RECD: 01/29/23 STATUS: ELVI BARRAGAN NUM: [id number] MARCELLE: 01/28/23-[address] [facility] [address]: Meghan Enciso ENTERED: 01/29/23-1024 SP TYPE: Pap Smr OTHR DR: Anh Solomon MD ORDERED: Pap Smear Interpretation Satisfactory for evaluation. Negative for intraepithelial lesion or malignancy. HPV mRNA E6/E7: NOT DETECTED This assay detects E6/E7 viral messenger RNA (mRNA) from 14 high-risk HPV types (16, 18, 31, 33, 35, 39, 45, 51, 52, 56, 58, 59, 66, 68) HPV testing performed by [email or web address], [place], [place]. See reference laboratory portion of the EMR for entire report. Clinical Information LMP: Previous PAP test: 07/01/18, Abnormal Other surgery: Colpo 02/06/06 ASCUS Other history: 2013 ASCUS, 2006 LGSIL Material Received ThinPrep-Cervical Copies To: Meghan Enciso[address] [phone] Anh Solomon MD [address] [place] [address] [phone] ----- ------- Signed (signature on file) Lenora Gurrola 02/14/23 1525 ----- ------- END OF REPORT [facility] External Provider LAB CYT OLOGY ORDERABLES Final Result Performing Organization Address [facility]/ZIP Co de Phone Number [facility] [address] [place] [address] [phone] * Pap Smear (01/28/2023) Pap Negative for intraephithelial lesion or malignancy Negative for intraephithelial lesion or malignancy, Other HPV Undetected [facility] Unassigned Pcp HEALTH MAINTENANCE Final Result * HEPATITIS C ANTIBODY RFLX (06/14/2021 12:41 PM EST) Hepatitis C Antibody Nonreactive Nonreactive [facility] Comment: Antibodies to HCV not detected; does not exclude early acute HCV infection. 06/14/2021 12:4 1 PM EST Anh Solomon MD HISTORICAL/NON ORDERABLE LABS Fi nal Result Performing Organization Address City/[facility]/ZIP Co de Phone Number [facility] [address] [place] [address], * HIV AB/AG (06/14/2021 12:41 PM EST) HIV AB/AG Nonreactive Nonreactive [facility] Comment: HIV-1 p24 Ag and/or [...] of detection of this assay. The [employer] Workflow Consultant HIV Ag/Ab Combo assay result and supplemental assay results should be interpreted in conjunction with the patient's clinical presentation, history and other laboratory results. If the results are inconsistent with clinical evidence, additional testing is suggested to confirm the result. 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
--- OUTSIDE RECORDS SUMMARY | 2025-06-12 14:36 | XMS_ITS | Encounter Summary ---
Author Organization [employer] Address [address] [facility] [address] [place] [address] Care Team Providers Care Regional Rehabilitation Director Name Role Phone Anh Solomon MD Primary Care Provider [phone] Reason for Visit * Reason Onset Date Comments Appointment Request 04/27/2024 Encounter Details Date Type Department Care Team ([facility] st Contact Info) Description 04/27/2024 Telephone [facility] MEDICINE [address] [place], [place] [phone] Anh Solomon MD [address] [place], [place] [phone] Appointment Request Social History Tobacco Use Types [...] on filedocumented in this encounter Care Teams Regional Rehabilitation Director Relationship Specialty Start Date End Date Anh Solomon MD [address] [place] [phone] PCP - General Family Medicine 08/03/18 documented as of this encounter
== END 2025-06-12 12:54 | disposition home or self-care (01) ==
LOC: HO.HBS 12:20
PROVIDERS: PCP Family Medicine; Visit Provider Physician Assistant Surgical
DX: E66.9 Obesity, unspecified (principal); Z68.30 Body mass index [BMI] 30.0-30.9, adult; Z90.3 Acquired absence of stomach [part of]; Z98.84 Bariatric surgery status
CPT/HCPCS: 98967